=== PATIENT | female | born 1960 | race Caucasian/White ===

== ENCOUNTER 2024-07-08 11:01 | Emergency (ER) | payer MEDICARE, SELFPAY ==
[2024-07-08] VITALS (24 sets, daily range): BP systolic 92–130; BP diastolic 33–66
--- NOTE | 2024-07-08 12:36 | ED.GENMED ---
History of Present Illness
General
Chief Complaint: Abnormal Lab Value
Source: patient and ambulance crew
Exam Limitations: none
Time Seen by Provider: 07/08/24 12:10
Nursing documentation reviewed up to this point in time: agreed with
History of Present Illness
History of Present Illness:
63-year-old female presents emergency department due to not receiving dialysis on Wednesday. Elevator at the facility [facility] is broken and they could not get her down to the basement to perform dialysis. EMS was called today because she did
not get dialysis yesterday. They transported her down the stairs by stair chair. Dialysis not available today, so they brought her to the emergency department.
Past History
Past History
ED Past Medical History: Arrthythmia, CAD, CVA, Renal failure and Other (Hemiplegia)
ED Past Surgical History: Appendectomy, Cholecystectomy and Other (ERCP)
Social History
Tobacco: Non-smoker
Alcohol: None
Drug: None
Living: senior living
Review of Systems
Review of Systems
Allergies reviewed?: Yes
All Other Systems: Not applicable
Constitutional: Reports no symptoms
EENT: Reports no symptoms
Respiratory: Reports no symptoms
Cardiac: Reports no symptoms
ABD/GI: Reports no symptoms
: Reports no symptoms
Musculoskeletal: Reports no symptoms
Skin: Reports no symptoms
Neurological: Reports no symptoms
Endocrine: Reports no symptoms
Hematologic/Lymphatic: Reports no symptoms
Psychiatric: Reports no symptoms
Phy Exam
Physical Exam
Physical Exam:
Physical Exam
General: no apparent distress, not acutely ill
Neck: supple. no meningeal signs. normal posterior pharynx
Heart: s1/s2 regular rate and rhythm, no murmur. equal radial
pulses.
HEENT: Pupils equal round reactive to light, EOMI
Lungs: no acute respiratory distress. clear bilaterally
Abdomen: normal bowel sounds. not tender. no CVAT, abdominal wound right side abdomen, dressing intact
Neuro: alert and oriented. no focal neurological deficits cranial nerves II through XII intact
Skin: no rash, left buttocks wound dressing intact
Psychiatric: well kept. interactive and cooperative
Extremities: no edema. no calf tenderness. negative homans. good distal pulses, bilateral BKA, Dialysis catheter
Course
Orders/Labs/Results
Orders:
Orders
07/08/24 12:27
IV Insert/Care/Rem.- Treatment PRN
07/08/24 13:56
Consult Nephrology [NEPHROLOGY CONSULT] Urgent
Consulting Provider: Chhaya Lorenzo
Was physician already notified: Yes
Reason for consult: missed dialysis yesterday
07/08/24 14:09
Comprehensive Metabolic Panel Urgent
07/08/24 16:02
Albumin Human 25% 50 ml [Flexbumin 25% For Hemodialysis] 12.5 grams IV HD-Q1HPRN PRN
Mannitol 25% 12.5 grams IV HD-Q1HPRN PRN
Midodrine [ProAmatine] 2.5 mg PO HD-ONCE ONE
Hemodialysis treatment As Directed
Treatment date:: 07/08/24
Treatment type: Hemodialysis
Ultrafiltration (kg): 1-1.5
Treatment time (duration): 3 hours 30 minutes
Use dialysis access:: Tunneled Cath
Dialyzer:: Optiflux 160
Blood flow rate minimum: 350
Blood flow rate maximum: 400
Dialysis flow rate: 600 mL/min
Dialysate temperature: 37 degrees Celsius
Sodium (Na): 140
Potassium (K): 2
Calcium (Ca): 2.5
Bicarbonate (HCO3): 35
Abnormal Lab Results
07/08/24
14:09
BUN 51 H mg/dl
(7-17)
Creatinine 3.8 H mg/dL
(0.6-1.0)
Glucose 100 H mg/dl
(70-99)
Calcium 8.1 L mg/dl
(8.4-10.2)
Albumin 2.8 L g/dl
(3.5-5.0)
07/08/24 14:09
Vital Signs
Initial and Last Documented VS:
Initial Vital Signs
BP Pulse Ox
109/51 99
07/08/24 11:04 07/08/24 11:04
Last Documented Vital Signs
Temp Pulse Resp BP Pulse Ox
98.1 F 63 18 130/65 98
07/08/24 11:06 07/08/24 15:53 07/08/24 15:53 07/08/24 17:00 07/08/24 17:00
MDM/Problems Addressed
Differential Diagnosis Includes:
Electrolyte abnormality
MDM/Problems Addressed:
63-year-old female with renal failure, missing dialysis. She will get dialysis and be discharged.
Chronic conditions affecting care: Kidney disease
Acute Exacerbation and/or Progression of Chronic Illness: Kidney disease
*Pulse Oximetry
Patient hypoxic: no
*Critical Care Note
Total Time (30-74mins, 75-104mins- exclusive of procedures): Not Applicable
Patient Management
Social determinants of health affecting care: Living situation and Strong social support
Discussion with other providers: Inside Sales Consultant (Nephrology)
Escalation/DeEscalation of care consider admission/obs:
Admit not indicated
ED Attending Note
-
Portions of this chart may have been created with voice recognition software.� Occasional wrong word or��sound alike� substitutions may have occurred due to the inherent limitations of voice recognition software.
Discharge Plan
Departure
Patient with high blood pressure during this ER visit?: Yes
Condition: Good
Discharge Problem:
Renal failure
Instructions: End-stage kidney disease (kidney failure), BLOOD PRESSURE
Prescriptions:
No Action
atorvastatin [Lipitor] 80 mg Tablet
80 mg PO QPM
sennosides [senna] 8.6 mg Tablet
17.2 mg PO BID
acetaminophen [Tylenol] 325 mg Tablet
650 mg PO Q4HPRN PRN (Reason: MILD PAIN)
doxycycline hyclate 100 mg Capsule
100 mg PO BID
Rx Instructions:
TAKE UNTIL 07/08/24
polyethylene glycol 3350 [Miralax] 17 gram Powder In Packet
17 g PO DAILY
amiodarone 200 mg Tablet
200 mg PO DAILY
ondansetron HCl [Zofran] 4 mg Tablet
4 mg PO Q8HPRN PRN (Reason: NAUSEA)
loperamide 2 mg Tablet
2 mg PO DAILYPRN PRN (Reason: DIARRHEA)
clopidogrel [Plavix] 75 mg Tablet
75 mg PO DAILY
aspirin 81 mg Tablet,Delayed Release (Dr/Ec)
81 mg PO DAILY
pantoprazole [Protonix] 40 mg Tablet,Delayed Release (Dr/Ec)
40 mg PO DAILY
nystatin 100,000 unit/gram Cream
1 applic TOPICAL DAILY
docusate sodium [Colace] 100 mg Capsule
100 mg PO BID
gabapentin 300 mg Capsule
300 mg PO TID
simethicone [Gas-X Extra Strength] 125 mg Tablet,Chewable
125 mg PO Q6HPRN PRN (Reason: GAS PAINS)
montelukast [Singulair] 10 mg Tablet
10 mg PO HS
metoprolol succinate [Toprol XL] 25 mg Tablet Extended Release 24 Hr
12.5 mg PO DAILY
albuterol sulfate [ProAir HFA] 90 mcg/actuation Hfa Aerosol Inhaler
2 puff INHALATION R Q6HPRN PRN (Reason: SOB)
lactulose 10 gram/15 mL Solution
20 g PO BIDPRN PRN (Reason: CONSTIPATION)
fentanyl 12 mcg/hr Patch 72 Hour
1 patch TRANSDERMAL Q72H
Preparation H Cream
1 applic AK HS
Preparation H Cream
1 applic [place] DAILYPRN PRN (Reason: AFTER EACH LOOSE STOOL)
insulin glargine [Lantus Solostar U-100 Insulin] 100 unit/mL (3 mL) Insulin Pen
7 unit SC HS
Referrals:
MARLEY HUSSEIN MD [Family Provider] - Call in 1-3 days for appt
Interventions
Interventions:
*Risk Screen - Suicide Last Done: 07/08/24 11:10
*General Assessment Last Done: 07/08/24 11:10
*Neglect/Abuse Screening Last Done: 07/08/24 11:10
*ED- Fall Risk Assessment Last Done: 07/08/24 11:10
*ED COVID-19 Vaccine History Last Done: 07/08/24 11:10
Discharge Date and Time
Print Language: ITALIAN
[2024-07-08 14:38] LABS: ALT (SGPT) < 10 U/L (0-35); AST (SGOT) 17 U/L (14-36); Albumin 2.8 g/dl (3.5-5.0); Alkaline Phosphatase 90 U/L (38-126); Blood Urea Nitrogen 51 mg/dl (7-17); Calcium 8.1 mg/dl (8.4-10.2); Carbon Dioxide 23 mmol/L (22-30); Chloride 107 mmol/L (98-107); Glucose 100 mg/dl (70-99); Potassium 4.6 mmol/L (3.5-5.1); Sodium 137 mmol/L (135-145); Total Bilirubin 0.5 mg/dl (0.2-1.3); Total Protein 6.6 g/dl (6.3-8.2); eGFR 12.91
[2024-07-08] MEDS: ProAmatine 2.5 MG PO (18:12)
--- NOTE | 2024-07-08 18:13 | W.CON.NEPH ---
Consultation
-
Date/Time Consultation Requested: 07/08/24 1300
Date/Time Consultation Performed: 07/08/24 1715
Requesting Provider: shonna Wood
Performing Provider: Chhaya Cormier
Reason for Consultation: ESRD
Medical History
-
Chief Complaint: missed HD
History of Present Illness:
this is 63-year-old female who has history of ESRD on dialysis since December 2023 initially was in [place] alf just moved to [facility] a month ago, right IJ tunneled dialysis catheter, long-standing diabetes probably caused
diabetic nephropathy and ESRD, CAD, history of CVA on aspirin who reportedly missed the dialysis yesterday since elevators were not working at her facility to go down to the dialysis unit. She was brought into the hospital today for missing
dialysis and cannot get dialysis until Wednesday. She reports no significant issues with the dialysis so far, she has not had any discussion of fistula creation. She only urinates small amount once in a while. Reports compliant with her as diet and
fluid restriction. She usually does not require much of a UF. She offers no fever, chest pain or shortness of breath are abdominal pain or diarrhea or constipation. She has history of bilateral BKA and she is Nonambulatory since then.
Past Medical History
Insulin-dependent diabetes mellitus
ESRD dialysis since December 2023
Right IJ tunneled dialysis catheter
history of bilateral BKA
Ambulatory dysfunction
Hyperlipidemia
GERD
Past Surgical History: Other ( right BKA in 2019, left BKA in 2021, appendectomy, cholecystectomy, ERCP)
Social History
Tobacco: Non-Smoker
Alcohol: None
Drug: None
Living: Group Home
Family History
Family History: Not Pertinent
Allergies / Home Medications
Allergy/AdvReac Type Severity Reaction Status Date / Time
Cephalosporins Allergy Severe Anaphylaxis Verified 07/08/24 11:15
Fish Containing Products Allergy Severe Shortness Verified 07/08/24 11:15
of Breath
Penicillins Allergy Severe Anaphylaxis Verified 07/08/24 11:15
shellfish derived Allergy Severe Shortness Verified 07/08/24 11:15
of Breath
strawberry Allergy Severe Itching Verified 07/08/24 11:15
bacitracin Allergy Intermediate Rash Verified 07/08/24 11:15
[From Neosporin
([id number])]
clindamycin Allergy Intermediate Shortness Verified 07/08/24 11:15
of Breath
latex Allergy Intermediate Shortness Verified 07/08/24 11:15
of Breath
morphine Allergy Intermediate Unknown Verified 07/08/24 11:15
neomycin Allergy Intermediate Rash Verified 07/08/24 11:15
[From Neosporin
([id number])]
polymyxin B Allergy Intermediate Rash Verified 07/08/24 11:15
[From Neosporin
([id number])]
silicone Allergy Intermediate Rash Verified 07/08/24 11:15
�Medication �Instructions �Recorded �Confirmed �Type
acetaminophen 325 mg tablet 650 mg PO Q4HPRN PRN MILD PAIN 07/08/24 07/08/24 History
(Tylenol)
albuterol sulfate 90 mcg/actuation 2 puff inhalation R Q6HPRN PRN SOB 07/08/24 07/08/24 History
aerosol inhaler
amiodarone 200 mg tablet 200 mg PO DAILY 07/08/24 07/08/24 History
aspirin 81 mg tablet,delayed 81 mg PO DAILY 07/08/24 07/08/24 History
release
atorvastatin 80 mg tablet (Lipitor) 80 mg PO QPM 07/08/24 07/08/24 History
clopidogrel 75 mg tablet (Plavix) 75 mg PO DAILY 07/08/24 07/08/24 History
docusate sodium 100 mg capsule 100 mg PO BID 07/08/24 07/08/24 History
(Colace)
doxycycline hyclate 100 mg capsule 100 mg PO BID 07/08/24 07/08/24 History
fentanyl 12 mcg/hr transdermal 1 patch transdermal Q72H 07/08/24 07/08/24 History
patch
gabapentin 300 mg capsule 300 mg PO TID 07/08/24 07/08/24 History
insulin glargine 100 unit/mL (3 7 unit SC HS 07/08/24 07/08/24 History
mL) subcutaneous pen (Lantus
Solostar U-100 Insulin)
lactulose 10 gram/15 mL oral 20 g PO BIDPRN PRN CONSTIPATION 07/08/24 07/08/24 History
solution
loperamide 2 mg tablet 2 mg PO DAILYPRN PRN DIARRHEA 07/08/24 07/08/24 History
metoprolol succinate 25 mg 12.5 mg PO DAILY 07/08/24 07/08/24 History
tablet,extended release 24 hr
(Toprol XL)
montelukast 10 mg tablet 10 mg PO HS 07/08/24 07/08/24 History
(Singulair)
nystatin 100,000 unit/gram topical 1 applic topical DAILY GROIN 07/08/24 07/08/24 History
cream
ondansetron HCl 4 mg tablet 4 mg PO Q8HPRN PRN NAUSEA 07/08/24 07/08/24 History
pantoprazole 40 mg tablet,delayed 40 mg PO DAILY 07/08/24 07/08/24 History
release (Protonix)
phenyleph-shark liver 1 applic [place] DAILYPRN PRN AFTER 07/08/24 07/08/24 History
[id number] rectal cream EACH LOOSE STOOL
phenyleph-shark liver 1 applic [place] HS 07/08/24 07/08/24 History
[id number] rectal cream
polyethylene glycol 3350 17 gram 17 g PO DAILY 07/08/24 07/08/24 History
oral powder packet (Miralax)
sennosides 8.6 mg tablet (senna) 17.2 mg PO BID 07/08/24 07/08/24 History
simethicone 125 mg chewable tablet 125 mg PO Q6HPRN PRN GAS PAINS 07/08/24 07/08/24 History
(Gas-X Extra Strength)
Review of Systems
-
All other systems: Negative unless noted
Physical Exam
Vital Signs
Vital Signs
Temp Pulse Resp BP Pulse Ox
98.1 F 63 18 109/53 99
07/08/24 11:06 07/08/24 15:53 07/08/24 15:53 07/08/24 17:45 07/08/24 18:00
Lab Results
Sodium 137 mmol/L (135-145) 07/08/24 14:09
Potassium 4.6 mmol/L (3.5-5.1) 07/08/24 14:09
Chloride 107 mmol/L (98-107) 07/08/24 14:09
Carbon Dioxide 23 mmol/L (22-30) 07/08/24 14:09
BUN 51 mg/dl (7-17) H 07/08/24 14:09
Creatinine 3.8 mg/dL (0.6-1.0) H 07/08/24 14:09
eGFR 12.91 07/08/24 14:09
Glucose 100 mg/dl (70-99) H 07/08/24 14:09
Calcium 8.1 mg/dl (8.4-10.2) L 07/08/24 14:09
Albumin 2.8 g/dl (3.5-5.0) L 07/08/24 14:09
Physical Exam
General: Awake, Alert, Oriented, AOx3, No Distress and Nontoxic
HEENT: EOMI, Anicteric, Conjunctivae Clear and Ear/Nose Intact
Respiratory: Clear, Normal Excursion and Nonlabored Respirations
Cardiac: S1/S2 and Regular Rate/Rhythm
Breast: Deferred by me
Abdomen: Soft, Nontender and Nondistended
Musculoskeletal: Other ( bilateral BKA)
Skin: No Rash
Neuro: Other ( clear speech, history of CVA, able to move her extremities)
Psych: Mood/afflect pleasant, Insight/judgement good and Appropriate
Data Reviewed
-
Labs: Labs Reviewed by me and Discussed with Patient
Assessment/Plan
-
IMP:
ESRD dialysis since December 2023
Right IJ tunneled dialysis catheter
Insulin-dependent diabetes mellitus
history of bilateral BKA
Ambulatory dysfunction
Hyperlipidemia
GERD
Plan:
a/w missing HD
will do HD today
vol status seem stable , gentle UF only
Bp stable
ok to d/c back to NH after HD
d/w pt
--- NOTE | 2024-07-08 18:22 | W.PN.NEPH.HD ---
Assessment
-
pt seen during HD
vitals stable
limited UF, seem euvolemic
CVC functions fine
ok to d/c back to NH
Progress Note - Hemodialysis
-
Date of Service: July 08, 2024
Duration: 30 minutes and 3 hours
Potassium Bath: 2
Calcium Bath: 2.5
Opti-Dialyzer: 160
Ultrafiltration: Other (0.5-1kg)
Blood Flow: 350
Dialysate Flow: 600
Heparin: no
EPO: no
[2024-07-09 01:10] VITALS: BP 106/55
[2024-07-09 02:32] VITALS: BP 105/33
[2024-07-09 03:29] VITALS: BP 105/34
== END 2024-07-09 03:20 ==
LOC: EMR 11:01
PROVIDERS: CONSULT PHYSICIAN Internal Medicine; EMERGENCY PHYSICIAN Emergency Medicine; FAMILY PHYSICIAN Student in an Organized Health Care Education/Training Program
DX: I12.0 Hypertensive chronic kidney disease with stage 5 chronic kidney disease or end stage renal disease (principal); N18.6 End stage renal disease; I25.10 Atherosclerotic heart disease of native coronary artery without angina pectoris; I69.359 Hemiplegia and hemiparesis following cerebral infarction affecting unspecified side; E11.40 Type 2 diabetes mellitus with diabetic neuropathy, unspecified; E11.22 Type 2 diabetes mellitus with diabetic chronic kidney disease; E11.51 Type 2 diabetes mellitus with diabetic peripheral angiopathy without gangrene; N18.5 Chronic kidney disease, stage 5; I48.91 Unspecified atrial fibrillation; J45.909 Unspecified asthma, uncomplicated; K21.9 Gastro-esophageal reflux disease without esophagitis; E78.5 Hyperlipidemia, unspecified; Z99.2 Dependence on renal dialysis; Z79.4 Long term (current) use of insulin; Z90.49 Acquired absence of other specified parts of digestive tract; Z89.511 Acquired absence of right leg below knee; Z89.512 Acquired absence of left leg below knee
CPT/HCPCS: 99285; G0257; 80053; P9047

== ENCOUNTER 2024-08-16 02:06 | Inpatient (IN) | payer OTHER, SELFPAY ==
[2024-08-15 20:41] VITALS: BMI 27.8
[2024-08-15 21:00] VITALS: BP 109/59
[2024-08-15 21:34] LABS: Hematocrit 37.2 % (37.0-47.0); Hemoglobin 11.4 g/dL (12.0-16.0); Mean Corp Hgb Conc. 30.6 g/dL (33.0-37.0); Mean Corpuscular Volume 85.5 fL (81.0-99.0); Nucleated Red Blood Cells % 0 %; Platelet Count 214 10^3/uL (130-400); Red Cell Dist. Width 15.6 % (11.5-14.5)
[2024-08-15 21:44] LABS: INR 1.12; PT 14.7 Sec (11.4-14.6)
[2024-08-15 21:49] LABS: ALT (SGPT) 15 U/L (0-35); AST (SGOT) 31 U/L (14-36); Albumin 2.4 g/dl (3.5-5.0); Alkaline Phosphatase 116 U/L (38-126); Blood Urea Nitrogen 51 mg/dl (7-17); Calcium 7.6 mg/dl (8.4-10.2); Carbon Dioxide 24 mmol/L (22-30); Chloride 104 mmol/L (98-107); Estimated Creatinine Clearance 21 ml/min; Glucose 155 mg/dl (70-99); Potassium 4.1 mmol/L (3.5-5.1); Sodium 133 mmol/L (135-145); Total Protein 6.3 g/dl (6.3-8.2); eGFR 18.51
[2024-08-15 22:00] VITALS: BP 124/65
[2024-08-15 23:00] VITALS: BP 113/70
[2024-08-16] VITALS (7 sets, daily range): BP systolic 108–139; BP diastolic 50–124; BMI 26.5
[2024-08-16] MEDS: ZOFRAN 4 MG IV (00:36)
[2024-08-16] MEDS: DILAUDID 0.5 MG IV (00:37)
--- NOTE | 2024-08-16 01:00 | ED.GENMED ---
History of Present Illness
General
Chief Complaint: Wound Check/Suture Removal
Source: patient
Exam Limitations: none
Time Seen by Provider: 08/15/24 22:11
Nursing documentation reviewed up to this point in time: agreed with
History of Present Illness
History of Present Illness:
Note:
CHIEF COMPLAINT(S)
Tissue infection on the hip.
HISTORY OF PRESENT ILLNESS
The patient is a 64-year-old female who presents with a tissue infection on the hip. She reports being followed by wound care services at [facility]. On examination, there is a noted yellowish discharge from the wound, and the patient reports no
associated fever. The current wound care regimen includes visits from [facility] wound care team. The patient mentioned seeing Dr. Prajapati for antibiotics. It was decided that further debridement than what can be provided at the shelter may
be necessary. An x-ray of the hip is planned, and the patient will be admitted for further care.
ADDITIONAL HISTORY OBTAINED FROM SOURCES OTHER THAN PATIENT
According to the wound care team from [facility], the patient has a tissue infection with yellowish discharge, which they have been monitoring.
SOCIAL DETERMINANTS AFFECTING HEALTH
The patient resides at [facility] and receives wound care services there.
PLAN
1. Admit the patient for further management of the hip infection.
2. Order laboratory tests.
3. Conduct an x-ray of the hip.
4. Arrange for further debridement if necessary.
5. Continue antibiotics as previously prescribed by Dr. Prajapati.
DIFFERENTIAL DIAGNOSIS
The Differential Diagnosis includes, in no particular order and is not limited to:
1. Necrotizing fasciitis-does not appear to be based on appearance
2. Osteomyelitis x-rays do not show clear signs of osteo
3. Cellulitis no obvious signs of cellulitis
4. Abscess formation minor possibility. No obvious abscess
5. Septic arthritis unlikely
6. Chronic wound infection
7. Hematoma unlikely
CARE-UPDATE
08/16/24 - 00:55
X-ray results indicate no signs of osteomyelitis. Plan to initiate antibiotics and proceed with admission due to outpatient wound cares request for further consensus.
Disposition:
SUMMARY OF ENCOUNTER
The patient is a 64-year-old female presenting with a non-healing stage 4 decubitus ulcer on her left hip. There is evidence of eschar but no clinical signs of cellulitis. She was evaluated due to the need for more extensive management than can be
provided at her current care facility, suggesting hospitalization and further wound debridement may be necessary. The patient will be admitted for the hospitalist services evaluation and potential wound care consultation.
DISPOSITION
Admit to hospitalist service for further management.
ASSESSMENT
Stage 4 decubitus ulcer on the left hip with eschar present, requiring hospital admission for further evaluation and potential wound care intervention.
PLAN
The patient will be admitted for further evaluation and management. A hospitalist service and possibly a wound care consultation will be part of her inpatient care team. Further debridement is planned as needed to aid in her recovery.
MEDICAL DECISION MAKING
- Complexity of Data Reviewed: Chronic conditions affecting care: Chronic wound infection, Soft tissue sarcoma, Hematoma
-Data:
Category 1
Clinical information like x-ray reports, infectious signs reviewed.
Category 2
Assessment requiring an independent historian(s): Clinical information obtained from wound care services indicating non-healing tissue infection and eschar presence.
- Risk:
Decisions were made to admit the patient due to her need for further evaluation, potential risk of complications from the wound, and to arrange dedicated wound care consultation and management interventions.
Past History
Past History
ED Past Medical History: Arrthythmia, CAD, CVA, Renal failure and Other (Hemiplegia)
ED Past Surgical History: Appendectomy, Cholecystectomy and Other (ERCP)
Social History
Tobacco: Non-smoker
Alcohol: None
Drug: None
Living: shelter
Phy Exam
Physical Exam
Physical Exam:
.
General Physical Exam
General Presentation: mild distress
General age: appears stated age
General Skin: warm and dry
General Habitus: debilitated and elderly
General Mental: alert
Pulmonary Exam
Pulmonary Exam: lungs clear and no respiratory distress
Gastrointestinal Exam
Gastrointestinal Exam: non tender, soft and non distended
Neurological Exam
Neurological Exam: alert and oriented x3
Musculoskeletal Exam
Musculoskeletal Exam: full ROM and neuro vasc intact
Skin Exam
Skin Exam: warm/dry, erythema and other (Decubiti on the left hip. Grade 4)
Sepsis
Sepsis Screening
Sepsis Assessment: Sepsis Ruled Out
Sepsis Screen
Sepsis Screen: Sepsis Ruled Out
Date: 08/16/24
Time: 02:00
Course
Orders/Labs/Results
Orders:
Orders
08/15/24 21:21
Complete Blood Count/With Diff Urgent
Comprehensive Metabolic Panel Urgent
Lactic Acid Q4H
Comment: ON ICE, CANCEL 2ND ORDER IF FIRST LACTIC ACID LEVEL <2
Prothrombin Time Urgent
Blood Culture Q20M
JAMIE Source: Blood/Venous
Specimen Description:
Comment: Urgent from separate sites. If patient screens positive for possible sepsis
08/15/24 23:06
Blood Culture Q20M
JAMIE Source: Blood/Venous
Specimen Description:
Comment: Urgent from separate sites. If patient screens positive for possible sepsis
08/16/24 00:01
CR Hip - LT w/wo Pel 2-3 Vw* Urgent
Reason For Exam: wound, nonhealing
Include a pelvis x-ray?: Yes
08/16/24 00:16
Ondansetron Injectable [Zofran] 4 mg IV NOW STA
08/16/24 00:24
HYDROmorphone [Dilaudid] 0.5 mg IV NOW STA
08/16/24 01:27
Admit/Transfer Patient As Directed
Co-Sign Provider:
Level of Care: Inpatient admission
Assign to:: Medical/Surgical
Physician / Group: Yehuda
Diagnosis: Left Hip Wound
Reason for Hospitalization: Left Hip Wound
Expected length of stay greater than two midnights?: Yes
ELOS- Estimated Length of Stay in days: 3
I certify the patient meets the requirements for IP care: Yes
PRN Pain Medication Management As Directed
May give lesser potent ordered pain med per pt: Yes
preference::
Protocol:: Medication orders for pain may be administered in a
manner that supports deferring to patient preference
when the pt is:
- Requesting an ordered lesser potent pain medication.
Least to most potent pain medications are defined
as: acetaminophen < NSAID < tramadol < opioids
(morphine, oxycodone, hydromorphone).
- Requesting a lesser dose of the same medication IF
ORDERED.
- Requesting a less intrusive route of administration
if both routes are prescribed by the provider (PO <
IV).
08/16/24 01:29
Code Status As Directed
Resuscitation Status: Full Code
Abnormal Lab Results
08/15/24
21:21
Hgb 11.4 L g/dL
(12.0-16.0)
MCH 26.2 L pg
(27.0-31.0)
MCHC 30.6 L g/dL
(33.0-37.0)
RDW 15.6 H %
(11.5-14.5)
MPV 10.9 H fL
(7.4-10.4)
Absolute Neuts (auto) 7.0 H 10^3/uL
(1.4-6.5)
Absolute Lymphs (auto) 1.1 L 10^3/uL
(1.2-3.4)
Neutrophils % 80.0 H %
(42.2-75.2)
Lymphocytes % 12.1 L %
(20.5-51.1)
PT 14.7 H Sec
(11.4-14.6)
Sodium 133 L mmol/L
(135-145)
BUN 51 H mg/dl
(7-17)
Creatinine 2.8 H mg/dL
(0.6-1.0)
Glucose 155 H mg/dl
(70-99)
Calcium 7.6 L mg/dl
(8.4-10.2)
Albumin 2.4 L g/dl
(3.5-5.0)
08/15/24 21:21
08/15/24 21:21
Vital Signs
Initial and Last Documented VS:
Initial Vital Signs
Pulse Resp Pulse Ox
68 15 99
08/15/24 20:43 08/15/24 20:43 08/15/24 20:43
Last Documented Vital Signs
Temp Pulse Resp BP Pulse Ox
98.3 F 93 25 109/69 99
08/15/24 20:46 08/16/24 01:15 08/16/24 01:15 08/16/24 01:00 08/16/24 01:15
*Pulse Oximetry
SaO2: 100
Oxygen Mode of Delivery: Room air
Patient hypoxic: no
*Critical Care Note
Total Time (30-74mins, 75-104mins- exclusive of procedures): Not Applicable
ED Attending Note
-
Portions of this chart may have been created with voice recognition software.� Occasional wrong word or��sound alike� substitutions may have occurred due to the inherent limitations of voice recognition software.
Discharge Plan
Departure
Patient Disposition: Admit
Date of Disposition: 08/16/24
Time of Disposition: 01:02
Admit to: Med/Surg
Presentation/result/management discussed w/ accepting MD/DO: Hospitalist
Condition: Fair
Discharge Problem:
Decubitus skin ulcer
Prescriptions:
No Action
atorvastatin [Lipitor] 80 mg Tablet
80 mg PO QPM
sennosides [senna] 8.6 mg Tablet
17.2 mg PO BID
acetaminophen [Tylenol] 325 mg Tablet
650 mg PO Q4HPRN PRN (Reason: MILD PAIN)
doxycycline hyclate 100 mg Capsule
100 mg PO BID
Rx Instructions:
TAKE UNTIL 07/08/24
polyethylene glycol 3350 [Miralax] 17 gram Powder In Packet
17 g PO DAILY
amiodarone 200 mg Tablet
200 mg PO DAILY
ondansetron HCl [Zofran] 4 mg Tablet
4 mg PO Q8HPRN PRN (Reason: NAUSEA)
loperamide 2 mg Tablet
2 mg PO DAILYPRN PRN (Reason: DIARRHEA)
clopidogrel [Plavix] 75 mg Tablet
75 mg PO DAILY
aspirin 81 mg Tablet,Delayed Release (Dr/Ec)
81 mg PO DAILY
pantoprazole [Protonix] 40 mg Tablet,Delayed Release (Dr/Ec)
40 mg PO DAILY
nystatin 100,000 unit/gram Cream
1 applic TOPICAL DAILY
docusate sodium [Colace] 100 mg Capsule
100 mg PO BID
gabapentin 300 mg Capsule
300 mg PO TID
simethicone [Gas-X Extra Strength] 125 mg Tablet,Chewable
125 mg PO Q6HPRN PRN (Reason: GAS PAINS)
montelukast [Singulair] 10 mg Tablet
10 mg PO HS
metoprolol succinate [Toprol XL] 25 mg Tablet Extended Release 24 Hr
12.5 mg PO DAILY
albuterol sulfate [ProAir HFA] 90 mcg/actuation Hfa Aerosol Inhaler
2 puff INHALATION R Q6HPRN PRN (Reason: SOB)
lactulose 10 gram/15 mL Solution
20 g PO BIDPRN PRN (Reason: CONSTIPATION)
fentanyl 12 mcg/hr Patch 72 Hour
1 patch TRANSDERMAL Q72H
Preparation H Cream
1 applic UT HS
Preparation H Cream
1 applic UT DAILYPRN PRN (Reason: AFTER EACH LOOSE STOOL)
insulin glargine [Lantus Solostar U-100 Insulin] 100 unit/mL (3 mL) Insulin Pen
7 unit SC HS
capsaicin [Arthritis Pain Relief(capsaic)] 0.075 % Cream
1 applic TOPICAL BID
Rx Instructions:
Apply to bilateral hips / thighs twice daily.
tramadol 50 mg Tablet
50 mg PO Q8H PRN (Reason: Pain)
diclofenac sodium [Voltaren] 1 % Gel
2 g TOPICAL BID
Rx Instructions:
Apply to R BKA BID
Referrals:
Camacho Al MD [Family Provider]
Interventions
Interventions:
*Risk Screen - Suicide Last Done: 08/15/24 20:51
*General Assessment Last Done: 08/15/24 20:49
*Neglect/Abuse Screening Last Done: 08/15/24 20:51
*ED- Fall Risk Assessment Last Done: 08/15/24 20:49
*ED COVID-19 Vaccine History Last Done: 08/15/24 20:49
ED-Skin Assessment Last Done: 08/16/24 01:26
Discharge Date and Time
Print Language: CONGOLESE
--- NOTE | 2024-08-16 02:31 | HPS.HSE ---
Family Physician
-
Family Physician: Camacho Al
Chief Complaint
-
L Hip Wound
History of Present Illness
Patient is a 64y F with PMH significant for ESRD on HD, ASCVD, hypertension, DM and chronic wounds who presents to ED for eval of L hip wound / drainage. Patient states that she has had wound on her L hip for approximately 3 months. She has
been receiving local wound care at the nursing facility including occasional bedside debridement. Today patient was started on doxycycline for yellow drainage from the wound. [facility] staff sent her to the ED for wound care evaluation and possibly more
extensive debridement of the wound.
Patient complains of intermittent nausea - though she also complains of dizziness with changes in head position which seems to correlate with / precede the nausea.
No fevers or chills. Patient complains of chronic, intermittent diarrhea. Reports history of IBS. No new / acute change in these symptoms.
No other acute complaints.
Medical History
Past Medical History
Past Medical History: Reports Other
Additional Past Medical History:
ASCVD (CVA x 5, CAD, PAD)
ESRD on HD (MWF)
Hypertension
DM-II
GERD
Obesity
Uterine Cancer / Vulvar Cancer s/p Surgery, Chemo, XRT
Asthma
? Clotting Disorder
Past Surgical History: Reports Other
Additional Past Surgical History:
Hysterectomy / Vulvectomy
Right IJ Tunneled HD Catheter (last changed in June 2024)
ERCP x 2
Cholecystectomy
Bilateral BKA
Appendectomy
PTCA with Stent x 2
Social History
Tobacco: Non-smoker
Alcohol: None
Drug: None
Living: [facility]
Family History
Family History: Other (Sisters (x2): Clotting disorder Father: CAD Mother: COPD)
Allergies / Home Medications
Allergies reflects when Allergies were last updated in [employer].
Home Medications with original date entered in [employer]
Allergy/Medication List:
Allergies
Allergy/AdvReac Type Severity Reaction Status Date / Time
Cephalosporins Allergy Severe Anaphylaxis Verified 07/08/24 11:15
Fish Containing Products Allergy Severe Shortness Verified 07/08/24 11:15
of Breath
Penicillins Allergy Severe Anaphylaxis Verified 07/08/24 11:15
shellfish derived Allergy Severe Shortness Verified 07/08/24 11:15
of Breath
strawberry Allergy Severe Itching Verified 07/08/24 11:15
bacitracin (From Neosporin Allergy Intermediate Rash Verified 07/08/24 11:15
([id number]))
clindamycin Allergy Intermediate Shortness Verified 07/08/24 11:15
of Breath
latex Allergy Intermediate Shortness Verified 07/08/24 11:15
of Breath
morphine Allergy Intermediate Unknown Verified 07/08/24 11:15
neomycin (From Neosporin Allergy Intermediate Rash Verified 07/08/24 11:15
([id number]))
polymyxin B (From Neosporin Allergy Intermediate Rash Verified 07/08/24 11:15
([id number]))
silicone Allergy Intermediate Rash Verified 07/08/24 11:15
Home Medications
acetaminophen 325 mg tablet (Tylenol) 650 mg PO Q4HPRN PRN MILD PAIN 07/08/24
albuterol sulfate 90 mcg/actuation aerosol inhaler 2 puff inhalation R Q6HPRN PRN SOB 07/08/24
amiodarone 200 mg tablet 200 mg PO DAILY 07/08/24
aspirin 81 mg tablet,delayed release 81 mg PO DAILY 07/08/24
atorvastatin 80 mg tablet (Lipitor) 80 mg PO QPM 07/08/24
clopidogrel 75 mg tablet (Plavix) 75 mg PO DAILY 07/08/24
docusate sodium 100 mg capsule (Colace) 100 mg PO BID 07/08/24
doxycycline hyclate 100 mg capsule 100 mg PO BID 07/08/24
fentanyl 12 mcg/hr transdermal patch 1 patch transdermal Q72H 07/08/24
gabapentin 300 mg capsule 300 mg PO TID 07/08/24
insulin glargine 100 unit/mL (3 mL) subcutaneous pen (Lantus Solostar U-100 Insulin) 7 unit SC HS 07/08/24
lactulose 10 gram/15 mL oral solution 20 g PO BIDPRN PRN CONSTIPATION 07/08/24
loperamide 2 mg tablet 2 mg PO DAILYPRN PRN DIARRHEA 07/08/24
metoprolol succinate 25 mg tablet,extended release 24 hr (Toprol XL) 12.5 mg PO DAILY 07/08/24
montelukast 10 mg tablet (Singulair) 10 mg PO HS 07/08/24
nystatin 100,000 unit/gram topical cream 1 applic topical DAILY GROIN 07/08/24
ondansetron HCl 4 mg tablet 4 mg PO Q8HPRN PRN NAUSEA 07/08/24
pantoprazole 40 mg tablet,delayed release (Protonix) 40 mg PO DAILY 07/08/24
phenyleph-shark liver [id number] rectal cream 1 applic CA DAILYPRN PRN AFTER EACH LOOSE STOOL 07/08/24
phenyleph-shark liver [id number] rectal cream 1 applic CA HS 07/08/24
polyethylene glycol 3350 17 gram oral powder packet (Miralax) 17 g PO DAILY 07/08/24
sennosides 8.6 mg tablet (senna) 17.2 mg PO BID 07/08/24
simethicone 125 mg chewable tablet (Gas-X Extra Strength) 125 mg PO Q6HPRN PRN GAS PAINS 07/08/24
capsaicin 0.075 % topical cream (Arthritis Pain Relief (capsaicin)) 1 applic topical BID 08/16/24
diclofenac sodium 1 % topical gel 2 g topical BID 08/16/24
tramadol 50 mg tablet 50 mg PO Q8H PRN Pain 08/16/24
Review of Systems
-
History Source: Patient
A 12 point ROS was completed and negative except as noted: Yes
Constitutional: Denies Fever, Fatigue or Chills
EENT: Denies Sore Throat
Respiratory: Denies Cough or Trouble Breathing
Cardiac: Denies Chest Pain or Palpitations
Abdomen/GI: Reports Nausea, Vomiting and Diarrhea; Denies Abdominal Pain, Constipated, Bloody Stools or Black Stools
: Reports Other (Minimal urine production.)
Skin: Reports Other (L hip wound / L buttock wound.)
Neurological: Reports Dizzy; Denies Headache
Psych: Denies Depression or Anxiety
Physical Exam
Vital Signs
Vital Signs
Temp Pulse Resp BP Pulse Ox
98.3 F 68 18 114/69 96
08/15/24 20:46 08/16/24 02:15 08/16/24 01:30 08/16/24 02:00 08/16/24 02:15
Physical Exam
General: Other (64y F in no acute distress.)
HEENT: Moist mucous membranes, PERRLA and Other (Thick neck.)
Respiratory: Clear; No Wheezes, Rales or Rhonchi
Cardiac: S1/S2 and Regular Rhythm; No Murmur
GI: Non Tender, Non Distended, Normal Bowel Sounds and Other (Obese)
Musculoskeletal: No Clubbing, No Cyanosis and Other (Bilateral BKA)
Skin: Other (L hip and L buttock wound with occlusive dressings in place (just changed in the ED). Surrounding skin with minimal erythema - no induration, increased warmth, etc.)
Neuro: AO x 3
Hematologic/Lymphatic: Other (R IJ Tunneled HD cath in place.)
Laboratory Results
-
08/15/24 21:21
08/15/24 21:21
Laboratory Results
PT 14.7 Sec (11.4-14.6) H 08/15/24 21:21
INR 1.12 08/15/24 21:21
Lactic Acid Cancelled 08/16/24 01:30
Total Bilirubin 0.3 mg/dl (0.2-1.3) 08/15/24 21:21
AST 31 U/L (14-36) 08/15/24 21:21
ALT 15 U/L (0-35) 08/15/24 21:21
Alkaline Phosphatase 116 U/L (38-126) 08/15/24 21:21
Impression/Plan
-
A/P: Patient is a 64y F with PMH significant for ASCVD, ESRD on HD, HTN and DM-II who presents to ED from local [facility] for evaluation of L hip wound.
Left Hip Wound
- Admit for further evaluation and treatment.
- Wound with described yellow drainage. Surrounding skin not significantly inflamed, etc.
- Continue current doxycycline for now.
- Wound Care / Surgery evaluation - ? additional debridement.
- Monitor temp curve, follow for any new symptoms / complaints.
ASCVD
- Stable. CAD with prior stents. Multiple previous strokes.
- No new symptoms.
- Hold Plavix acutely pending any surgery / debridement.
- Continue other outpatient med regimen including ASA, etc.
Paroxysmal Atrial Fibrillation
- Listed on MI record and patient on amiodarone per APR.
- Not on any OAC - despite reported A-Fib and separate 'clotting disorder'.
- Continue current CV medications.
- ? consider addition of OAC to current regimen.
ESRD on HD
- Stable. Receives HD .
- No gross evidence of volume overload on exam.
- Nephrology evaluation for HD needs during acute stay.
Benign Hypertension
- Stable. Continue current medications.
DM-II
- Continue basal : bolus insulin regimen.
- Follow glucose and cover with SSI as needed.
- Update A1C.
Asthma
- Stable. No active wheezing, dyspnea, etc.
- Continue inhaled medication regimen.
DVT Prophylaxis: Subcut heparin. ? 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
Code Status: Full
[2024-08-16 07:29] LABS: Glucose - Point of Care 84 mg/dl (70-99)
[2024-08-16 08:02] LABS: Hematocrit 35.1 % (37.0-47.0); Hemoglobin 10.8 g/dL (12.0-16.0); Mean Corp Hgb Conc. 30.8 g/dL (33.0-37.0); Mean Corpuscular Volume 86.2 fL (81.0-99.0); Platelet Count 205 10^3/uL (130-400); Red Cell Dist. Width 15.7 % (11.5-14.5)
[2024-08-16] MEDS: ASPIR LOW (ENTERIC COATED) 81 MG PO (08:07)
[2024-08-16] MEDS: TOPROL XL 12.5 MG PO (08:07)
[2024-08-16] MEDS: NEURONTIN 300 MG PO ×2 (08:07→20:27)
[2024-08-16] MEDS: VIBRAMYCIN 100 MG PO ×2 (08:07→20:27)
[2024-08-16] MEDS: PACERONE 200 MG PO (08:08)
[2024-08-16] MEDS: HEPARIN 5000 UNITS SC ×2 (08:08→20:27)
[2024-08-16] MEDS: MYCOSTATIN CREAM 1 APPLIC TOPICAL (08:09)
--- NOTE | 2024-08-16 08:20 | CON.GS ---
Addendum entered and electronically signed by Hilton Abbasi MD 08/16/24 11:56:
I saw and examined the patient.
The resident's note was reviewed and I agree with the note.
Comment: 64F s/p b/l BKA with 3 month hx of left hip pressure wounds, one with necrosis and purulence prompting admission. Exam with necrosis and purulence without erythema or calor or odor. Has sensation to the area, c/o pain there. On DAPT and
ESRD/HD. Ate breakfast this am, precluding OR today. AFVSS, no leukocytosis. Will attempt bedside I&D today.
Original Note:
Consultation
-
Date/Time Consultation Requested: 08/16/24, 2am
Date/Time Consultation Performed: 08/16/24, 8am
Requesting Provider: Tawanda Blackman
Performing Provider: Hilton Abbasi
Reason for Consultation: eval decubitus ulcer for debridement
Medical History
-
Chief Complaint: decubitus ulcer w new purulent drainage
History of Present Illness:
Elizabeth Abdalla is a 64yo F who presented to the ED & was admitted on 08/16 for evaluation & management of L hip decubitus ulcer with new purulent drainage. General surgery consulted to eval wound for potential debridement. Hx notable for ESRD on HD,
ASCVD, HTN, T2DM, bilateral BKA, and chronic wounds.
Pt resides at [facility] and is seen by their wound care team, who have been providing wound care with occasional bedside debridement for her L hip non-healing decubitus ulcer. She has had this wound for approx 3 months. Wound care team noted
new yellow/purulent drainage from the wound on 08/15 and sent her to the ED for evaluation. At presentation, pt was afebrile and denies feeling feverish or chills. No new nausea (chronic intermittent nausea with lightheadedness). Pt is non-smoker. ED
noted visible eschar but no visible evidence of cellulitis. Wound was dressed in the ED and pt was started on doxycycline 100mg BID & PRN pain regimen and admitted to floor. Pelvic xray ordered in ED demonstrated no signs c/w osteomyelitis. Exam on
admission noted no erythema or warmth around wound site.
This am, pt somnolent but denies any fever/chills overnight. Denies any new pain (wound site has sensation).
Past Medical History
Past Medical History: CAD, Cancer (vulvar/uterine), HTN, IDDM and Renal Failure (HD)
Past Surgical History: Appendectomy, Cardiac (PTCA with stent x2), Cholecystectomy, Gynecological (hysterectomy & vulvectomy) and Other (bilateral BKA)
Social History
Tobacco: Non-Smoker
Living: Residential
Allergies / Home Medications
Allergy/AdvReac Type Severity Reaction Status Date / Time
Cephalosporins Allergy Severe Anaphylaxis Verified 07/08/24 11:15
Fish Containing Products Allergy Severe Shortness Verified 07/08/24 11:15
of Breath
Penicillins Allergy Severe Anaphylaxis Verified 07/08/24 11:15
shellfish derived Allergy Severe Shortness Verified 07/08/24 11:15
of Breath
strawberry Allergy Severe Itching Verified 07/08/24 11:15
bacitracin (From Neosporin Allergy Intermediate Rash Verified 07/08/24 11:15
([id number]))
clindamycin Allergy Intermediate Shortness Verified 07/08/24 11:15
of Breath
latex Allergy Intermediate Shortness Verified 07/08/24 11:15
of Breath
morphine Allergy Intermediate Unknown Verified 07/08/24 11:15
neomycin (From Neosporin Allergy Intermediate Rash Verified 07/08/24 11:15
([id number]))
polymyxin B (From Neosporin Allergy Intermediate Rash Verified 07/08/24 11:15
([id number]))
silicone Allergy Intermediate Rash Verified 07/08/24 11:15
�Medication �Instructions �Recorded �Confirmed �Type
acetaminophen 325 mg tablet 650 mg PO Q4HPRN PRN MILD PAIN 07/08/24 08/16/24 History
(Tylenol)
albuterol sulfate 90 mcg/actuation 2 puff inhalation R Q6HPRN PRN SOB 07/08/24 08/16/24 History
aerosol inhaler
amiodarone 200 mg tablet 200 mg PO DAILY 07/08/24 08/16/24 History
aspirin 81 mg tablet,delayed 81 mg PO DAILY 07/08/24 08/16/24 History
release
atorvastatin 80 mg tablet (Lipitor) 80 mg PO QPM 07/08/24 08/16/24 History
clopidogrel 75 mg tablet (Plavix) 75 mg PO DAILY 07/08/24 08/16/24 History
docusate sodium 100 mg capsule 100 mg PO BID 07/08/24 08/16/24 History
(Colace)
doxycycline hyclate 100 mg capsule 100 mg PO BID 07/08/24 08/16/24 History
fentanyl 12 mcg/hr transdermal 1 patch transdermal Q72H 07/08/24 08/16/24 History
patch
gabapentin 300 mg capsule 300 mg PO TID 07/08/24 08/16/24 History
insulin glargine 100 unit/mL (3 7 unit SC HS 07/08/24 08/16/24 History
mL) subcutaneous pen (Lantus
Solostar U-100 Insulin)
lactulose 10 gram/15 mL oral 20 g PO BIDPRN PRN CONSTIPATION 07/08/24 08/16/24 History
solution
loperamide 2 mg tablet 2 mg PO DAILYPRN PRN DIARRHEA 07/08/24 08/16/24 History
metoprolol succinate 25 mg 12.5 mg PO DAILY 07/08/24 08/16/24 History
tablet,extended release 24 hr
(Toprol XL)
montelukast 10 mg tablet 10 mg PO HS 07/08/24 08/16/24 History
(Singulair)
nystatin 100,000 unit/gram topical 1 applic topical DAILY GROIN 07/08/24 08/16/24 History
cream
ondansetron HCl 4 mg tablet 4 mg PO Q8HPRN PRN NAUSEA 07/08/24 08/16/24 History
pantoprazole 40 mg tablet,delayed 40 mg PO DAILY 07/08/24 08/16/24 History
release (Protonix)
phenyleph-shark liver 1 applic [place] DAILYPRN PRN AFTER 07/08/24 08/16/24 History
mzj-eatkae-bcc rectal cream EACH LOOSE STOOL
phenyleph-shark liver 1 applic WA HS 07/08/24 08/16/24 History
cvc-izicoz-gyt rectal cream
polyethylene glycol 3350 17 gram 17 g PO DAILY 07/08/24 08/16/24 History
oral powder packet (Miralax)
sennosides 8.6 mg tablet (senna) 17.2 mg PO BID 07/08/24 08/16/24 History
simethicone 125 mg chewable tablet 125 mg PO Q6HPRN PRN GAS PAINS 07/08/24 08/16/24 History
(Gas-X Extra Strength)
capsaicin 0.075 % topical cream 1 applic topical BID 08/16/24 08/16/24 History
(Arthritis Pain Relief (capsaicin))
diclofenac sodium 1 % topical gel 2 g topical BID 08/16/24 08/16/24 History
tramadol 50 mg tablet 50 mg PO Q8H PRN Pain 08/16/24 08/16/24 History
Review of Systems
-
Unable to obtain full review of systems at this time due to: Other (patient somnolent, difficult to rouse )
History Source: Patient
Constitutional: Other (denies fever/chills)
A 10 point review of systems was completed, and was negative except as per HPI.
Physical Exam
Vital Signs
Temp Pulse Resp BP Pulse Ox
98.4 F 62 19 108/57 97
08/16/24 03:44 08/16/24 08:08 08/16/24 03:44 08/16/24 08:08 08/16/24 03:44
08/15/24 08/16/24 08/17/24
06:59 06:59 06:59
Actual Weight 72.263 kg
Body Mass Index (BMI) 26.5
Lab Results
08/16/24 06:47
WBC 7.6 10^3/uL (4.8-10.8) 08/16/24 06:47
Hgb 10.8 g/dL (12.0-16.0) L 08/16/24 06:47
Hct 35.1 % (37.0-47.0) L 08/16/24 06:47
Plt Count 205 10^3/uL (130-400) 08/16/24 06:47
Abs Immat Gran (auto) 0.0 10^3/uL (0-0.05) 08/15/24 21:21
Neutrophils % 80.0 % (42.2-75.2) H 08/15/24 21:21
Physical Exam
General: Other (somnolent, lying in bed on R side (pressure offloaded from L hip) )
HEENT: Normocephalic and Atraumatic
Respiratory: Non Labored Respirations
Musculoskeletal: Other (bilateral BKA)
Skin: Other (clean wound dressing (applied 08/16 by ED) on two areas of L posterior hip; more superior wound with necrosis & purulence; more inferior wound with fibrinous debris but no necrosis or purulence; surrounding skin not hot; no surrounding
erythema; area around wounds non-tender to palpation)
Psych: Calm
Data Reviewed
-
Radiology: Image Personally Visualized and interpreted and Report Reviewed by me
Labs: Labs Reviewed by me
Critical Care Time (in minutes): 50
Total Time Spent with Patient (in minutes): 15
Assessment / Plan
-
Elizabeth Abdalla is a 64yo F with a hx of ESRD on HD, ASCVD, HTN, DM, bilateral BKA, and chronic wounds seen for management of L hip decubitus ulcer with eschar & new purulent drainage.
Assessment: Superior L hip wound c/w necrotic (unstageable) decubitus pressure ulcer. Inferior L hip wound c/w stage III pressure ulcer. XR reassuring re: osteomyelitis, although early changes often visible only on MRI. Lack of fever, leukocytosis,
cellulitis, & warmth also reassuring from infectious standpoint. Given necrosis and purulence, debridement indicated for superior L hip wound.
Plan:
- Bedside debridement of superior L hip wound today by surgical team
- Plan to send bx post-debridement for culture
- Continue empiric doxycycline 100mg BID, pending result of wound culture
- Continue fentanyl patch, gabapentin, & PRN pain meds
- Offload pressure from L hip w bed positioning, especially from superior wound area
- Maintain adequate nutritional status w PO diet, consider following prealbumin level if remaining inpt (goal >25)
- Dispo: to SNF, following recovery from bedside debridement & wound culture resulting
[2024-08-16 08:31] LABS: Blood Urea Nitrogen 57 mg/dl (7-17); Calcium 7.6 mg/dl (8.4-10.2); Carbon Dioxide 21 mmol/L (22-30); Chloride 105 mmol/L (98-107); Estimated Creatinine Clearance 17 ml/min; Glucose 71 mg/dl (70-99); Potassium 4.0 mmol/L (3.5-5.1); Sodium 135 mmol/L (135-145); eGFR 16.39
--- NOTE | 2024-08-16 09:08 | CM ---
CM following for discharge planning. 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 PCP is Dr. Camacho Al.
Recent hospitalization at [facility] 05/19-05/28/2024.
Plan: Pt to return at [facility] when medically stable.
[facility] Report: [phone]
[facility]
[2024-08-16 09:25] LABS: Glycohemoglobin (HgbA1c) 4.8 % (4.0-5.6)
[2024-08-16] MEDS: DURAGESIC 12 MCG/HR PATCH 1 PATCH TRANSDERM (09:36)
--- NOTE | 2024-08-16 09:40 | W.CON.NEPH ---
Consultation
-
Date/Time Consultation Requested: August 16, 2024 at 2:30 AM
Date/Time Consultation Performed: August 16, 2024 at 9:30 AM
Requesting Provider: Dr. Blackman
Performing Provider: Dr. Luciano
Reason for Consultation: End-stage renal disease
Medical History
-
Chief Complaint: ESRD
History of Present Illness:
64y F with PMH significant for ESRD on HD, ASCVD, hypertension, DM and chronic wounds who presents to ED for eval of L hip wound / drainage. Patient states that she has had wound on her L hip for approximately 3 months. She has been receiving
local wound care at the nursing facility including occasional bedside debridement. Today patient was started on doxycycline for yellow drainage from the wound. [facility] staff sent her to the ED for wound care evaluation and possibly more extensive
debridement of the wound.
She receives dialysis at [facility] Wednesday she has been on dialysis since December 2023 via [facility]
Renal consult for end-stage renal disease management
Past Medical History
Insulin-dependent diabetes mellitus
ESRD dialysis since December 2023
Right IJ tunneled dialysis catheter
history of bilateral BKA
Ambulatory dysfunction
Hyperlipidemia
GERD
Past Surgical History: Other ( right BKA in 2019, left BKA in 2021, appendectomy, cholecystectomy, ERCP)
Social History
Tobacco: Non-Smoker
Alcohol: None
Drug: None
Living: Skilled Nursing
Family History
Family History: Not Pertinent
Allergies / Home Medications
Allergy/AdvReac Type Severity Reaction Status Date / Time
Cephalosporins Allergy Severe Anaphylaxis Verified 07/08/24 11:15
Fish Containing Products Allergy Severe Shortness Verified 07/08/24 11:15
of Breath
Penicillins Allergy Severe Anaphylaxis Verified 07/08/24 11:15
shellfish derived Allergy Severe Shortness Verified 07/08/24 11:15
of Breath
strawberry Allergy Severe Itching Verified 07/08/24 11:15
bacitracin (From Neosporin Allergy Intermediate Rash Verified 07/08/24 11:15
([id number]))
clindamycin Allergy Intermediate Shortness Verified 07/08/24 11:15
of Breath
latex Allergy Intermediate Shortness Verified 07/08/24 11:15
of Breath
morphine Allergy Intermediate Unknown Verified 07/08/24 11:15
neomycin (From Neosporin Allergy Intermediate Rash Verified 07/08/24 11:15
([id number]))
polymyxin B (From Neosporin Allergy Intermediate Rash Verified 07/08/24 11:15
([id number]))
silicone Allergy Intermediate Rash Verified 07/08/24 11:15
�Medication �Instructions �Recorded �Confirmed �Type
acetaminophen 325 mg tablet 650 mg PO Q4HPRN PRN MILD PAIN 07/08/24 08/16/24 History
(Tylenol)
albuterol sulfate 90 mcg/actuation 2 puff inhalation R Q6HPRN PRN SOB 07/08/24 08/16/24 History
aerosol inhaler
amiodarone 200 mg tablet 200 mg PO DAILY 07/08/24 08/16/24 History
aspirin 81 mg tablet,delayed 81 mg PO DAILY 07/08/24 08/16/24 History
release
atorvastatin 80 mg tablet (Lipitor) 80 mg PO QPM 07/08/24 08/16/24 History
clopidogrel 75 mg tablet (Plavix) 75 mg PO DAILY 07/08/24 08/16/24 History
docusate sodium 100 mg capsule 100 mg PO BID 07/08/24 08/16/24 History
(Colace)
doxycycline hyclate 100 mg capsule 100 mg PO BID 07/08/24 08/16/24 History
fentanyl 12 mcg/hr transdermal 1 patch transdermal Q72H 07/08/24 08/16/24 History
patch
gabapentin 300 mg capsule 300 mg PO TID 07/08/24 08/16/24 History
insulin glargine 100 unit/mL (3 7 unit SC HS 07/08/24 08/16/24 History
mL) subcutaneous pen (Lantus
Solostar U-100 Insulin)
lactulose 10 gram/15 mL oral 20 g PO BIDPRN PRN CONSTIPATION 07/08/24 08/16/24 History
solution
loperamide 2 mg tablet 2 mg PO DAILYPRN PRN DIARRHEA 07/08/24 08/16/24 History
metoprolol succinate 25 mg 12.5 mg PO DAILY 07/08/24 08/16/24 History
tablet,extended release 24 hr
(Toprol XL)
montelukast 10 mg tablet 10 mg PO HS 07/08/24 08/16/24 History
(Singulair)
nystatin 100,000 unit/gram topical 1 applic topical DAILY GROIN 07/08/24 08/16/24 History
cream
ondansetron HCl 4 mg tablet 4 mg PO Q8HPRN PRN NAUSEA 07/08/24 08/16/24 History
pantoprazole 40 mg tablet,delayed 40 mg PO DAILY 07/08/24 08/16/24 History
release (Protonix)
phenyleph-shark liver 1 applic [place] DAILYPRN PRN AFTER 07/08/24 08/16/24 History
zyl-wsezgt-cvm rectal cream EACH LOOSE STOOL
phenyleph-shark liver 1 applic [place] HS 07/08/24 08/16/24 History
ikc-wffqbg-avy rectal cream
polyethylene glycol 3350 17 gram 17 g PO DAILY 07/08/24 08/16/24 History
oral powder packet (Miralax)
sennosides 8.6 mg tablet (senna) 17.2 mg PO BID 07/08/24 08/16/24 History
simethicone 125 mg chewable tablet 125 mg PO Q6HPRN PRN GAS PAINS 07/08/24 08/16/24 History
(Gas-X Extra Strength)
capsaicin 0.075 % topical cream 1 applic topical BID 08/16/24 08/16/24 History
(Arthritis Pain Relief (capsaicin))
diclofenac sodium 1 % topical gel 2 g topical BID 08/16/24 08/16/24 History
tramadol 50 mg tablet 50 mg PO Q8H PRN Pain 08/16/24 08/16/24 History
Review of Systems
-
No chest pain or shortness of breath mild nausea
All other systems: Negative unless noted
Physical Exam
Vital Signs
Vital Signs
Temp Pulse Resp BP Pulse Ox
97.9 F 62 18 108/57 98
08/16/24 07:10 08/16/24 08:08 08/16/24 07:10 08/16/24 08:08 08/16/24 07:10
Lab Results
WBC 7.6 10^3/uL (4.8-10.8) 08/16/24 06:47
RBC 4.07 10^6/uL (4.20-5.40) L 08/16/24 06:47
Hgb 10.8 g/dL (12.0-16.0) L 08/16/24 06:47
Hct 35.1 % (37.0-47.0) L 08/16/24 06:47
Plt Count 205 10^3/uL (130-400) 08/16/24 06:47
Sodium 135 mmol/L (135-145) 08/16/24 06:46
Potassium 4.0 mmol/L (3.5-5.1) 08/16/24 06:46
Chloride 105 mmol/L (98-107) 08/16/24 06:46
Carbon Dioxide 21 mmol/L (22-30) L 08/16/24 06:46
BUN 57 mg/dl (7-17) H 08/16/24 06:46
Creatinine 3.1 mg/dL (0.6-1.0) H 08/16/24 06:46
eGFR 16.39 08/16/24 06:46
Glucose 71 mg/dl (70-99) 08/16/24 06:46
Calcium 7.6 mg/dl (8.4-10.2) L 08/16/24 06:46
Albumin 2.4 g/dl (3.5-5.0) L 08/15/24 21:21
Physical Exam
General no acute distress
HEENT no cephalic atraumatic extraocular muscle intact no scleral icterus no JVD neck supple
lungs clear to auscultation bilateral
heart regular S1-S2 positive
abdomen soft nontender positive bowel sounds
extremities bilateral lower extremity amputations
Neurologically nonfocal alert and oriented x 3
Skin left hip wound dressing
Psych normal affect no bizarre behavior
Data Reviewed
-
Labs: Labs Reviewed by me, Discussed with Nurse and Discussed with Patient
Assessment/Plan
-
IMP:
ESRD dialysis since December 2023
Right IJ tunneled dialysis catheter
Left hip wound
Insulin-dependent diabetes mellitus
history of bilateral BKA
Ambulatory dysfunction
Hyperlipidemia
GERD
Plan:
Dialysis Wednesday
Dialysis order= please refer to orders for details
Epogen as indicated for hemoglobin goal between 10 and 11
Wound management
Antibiotic renally dosed
[2024-08-16] MEDS: REMOVE DURAGESIC PATCH 1 PATCH REMOVE (09:41)
[2024-08-16] MEDS: FLEXBUMIN 25% FOR HEMODIALYSIS 12.5 GRAMS IV ×2 (10:20→12:00)
[2024-08-16] MEDS: MANNITOL 25% 12.5 GRAMS IV ×2 (10:43→12:06)
--- NOTE | 2024-08-16 10:55 | WOUNDNOTE ---
WO RN note: Patient admitted with infected hip wound.
See H&P for complete history.
PMH:
Patient is a 64y F with PMH significant for ESRD on HD, ASCVD, hypertension, DM and chronic wounds who presents to ED for eval of L hip wound / drainage. Patient states that she has had wound on her L hip for approximately 3 months. She has
been receiving local wound care at the nursing facility including occasional bedside debridement.
Wound Location and type/assessment: Patient admitted with: L hip and L ischium with stage 4 PI, foul odor, base saunders mixed with christine slough, undermines and tunnels. Distal to L hip stage 3 vs deeper PI. Sacrum is intact, patient assists with
turning. R hip blanchable red, silicone foam to protect in use. L ear with dried up suspect stage 3 PI. R ear blanchable red. B/L BKA stumps intact.
Appetite: Fair, encouraged protein in diet.
Pressure redistribution devices in place: On [place] air bed with air overlay as per patient's request. Palm check done and adjusted air, repositioned onto R semi side lying position.
Plan: Saline moist gauze applied. Surgical consult pending. Recommend [facility] if not going to OR.
Will confirm orders with hospitalist and updated nurse.
Updated care plan and will follow as needed.
Note to case management of equipment requested for discharge:
Recommend follow up at wound care center upon discharge.
[2024-08-16 11:39] LABS: Glucose - Point of Care 98 mg/dl (70-99)
--- NOTE | 2024-08-16 13:08 | W.PN.NEPH.HD ---
Assessment
-
Seen on dialysis tolerated treatment ultrafiltration 500 required mannitol for low blood pressure. Catheter worked well
Progress Note - Hemodialysis
-
Date of Service: August 16, 2024
Duration: 30 minutes and 3 hours
Potassium Bath: 2
Calcium Bath: 2.5
Opti-Dialyzer: 160
Ultrafiltration: Other (0.5-1kg)
Blood Flow: 350
Dialysate Flow: 600
Heparin: no
EPO: no
[2024-08-16] MEDS: ATIVAN 1 MG IV (13:38)
[2024-08-16] MEDS: DILAUDID 1 MG IV (13:46)
--- NOTE | 2024-08-16 14:23 | W.PN.UPDATE ---
Update Note
Progress Note Update
Incision and drainage of left hip pressure wound, stage IV, infected, necrotic
Informed consent obtained
Anesthesia: 1mg dilaudid, 1mg ativan, 25cc 0.5% lidocaine with epi
Specimen: Aerobic/anaerobic cultures
Final wound dimensions: 4cm x 3cm x 1cm with 3.5cm tunnel at 7:00 position
Procedure:
Dressing and packing removed. Lidocaine infiltrated into surrounding soft tissues. #11 blade used to sharply debride skin, subcutaneous fat, circumferentially around the rim of the wound and muscle and fascia in the wound base. Tunneling identified
at 7:00 position probed to 3.5cm depth. This cavity was sharply debrided with the knife to excise necrotic subcutaneous fat, muscle and fascia. Scan purulence was expressed from this tunnel. All tissue debrided sharpy back to healthy tissue. Small
area of periosteum exposed in the wound base. Anaerobic and aerobic cultures obtained. The wound was irrigated with copious sterile saline. Hemostasis achieved with direct pressure. Tunnel and wound packed with saline moistened gauze, covered with
dry gauze and silicone dressing.
The patient tolerated the procedure well with no complications.
--- NOTE | 2024-08-16 15:05 | W.PN.HOSP.TC ---
Today's Communication/Plan
-
See plan
Assessment / Plan
Assessment / Plan
Impression
Patient is a 64y F with PMH significant for ASCVD, ESRD on HD, HTN and DM-II who presents to ED from local MD for evaluation of L hip wound.
Infected left hip wound
Other conditions
Bilateral BKA
ASCVD
Paroxysmal atrial fibrillation.
End-stage renal disease on hemodialysis per
Benign hypertension
Diabetes type 2.
Asthma without exacerbation
Plan
Infected left hip wound with necrotic eschar.
Presented with foul-smelling discharge, although hemodynamically stable, afebrile with normal white count and no evidence for systemic infection
X-ray with no evidence of osteomyelitis.
Status post bedside sharp debridement by general surgery.
Follow wound cultures
She has been initiated on doxycycline prior to admission. Noted with multiple antibiotic allergies
ASCVD
- Stable. CAD with prior stents. Multiple previous strokes.
- No new symptoms.
- Hold Plavix acutely pending any surgery / debridement.
- Continue other outpatient med regimen including ASA, etc.
Paroxysmal Atrial Fibrillation
- Listed on MD record and patient on amiodarone per APR.
- Not on any OAC - despite reported A-Fib and separate 'clotting disorder'.
- Continue current CV medications.
- ? consider addition of OAC to current regimen.
ESRD on HD
- Stable. Receives HD --.
- No gross evidence of volume overload on exam.
- Nephrology evaluation for HD needs during acute stay.
Benign Hypertension
- Stable. Continue current medications.
DM-II
- Continue basal : bolus insulin regimen.
- Follow glucose and cover with SSI as needed.
- Hemoglobin A1c 4.8
Asthma
- Stable. No active wheezing, dyspnea, etc.
- Continue inhaled medication regimen.
DVT Prophylaxis: Subcut heparin. ? 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
Anticipated Discharge: 24 - 48 hours
Subjective/Interval History
-
Date of Service: August 16, 2024
Objective Data
-
Labs:
Laboratory Results
08/16/24 08/16/24
06:46 06:47
WBC 7.6
Hgb 10.8 L
Hct 35.1 L
Plt Count 205
Sodium 135
Potassium 4.0
Chloride 105
Carbon Dioxide 21 L
BUN 57 H
Creatinine 3.1 H
Glucose 71
Calcium 7.6 L
Vital Signs:
Vital Signs
Temp Pulse Resp BP Pulse Ox
97.9 F 62 18 108/57 98
08/16/24 07:10 08/16/24 08:08 08/16/24 07:10 08/16/24 08:08 08/16/24 10:31
Physical Exam
-
General: Well Developed and No Apparent Distress
HEENT: Normocephalic, Atraumatic and Moist Mucous Membranes
Respiratory: Clear to Auscultation
Cardiac: Regular Rhythm and S1/S2; Negative Murmur, Rub or Gallop
GI: Soft, Nontender, Nondistended and Normal Bowel Sounds; Negative Organomegaly
Rectal: Deferred by Provider
Musculoskeletal: No Clubbing, No Cyanosis and No Edema
Skin: Negative Rash
Neuro: Nonfocal/Grossly Intact
[2024-08-16] MEDS: LIPITOR 80 MG PO (17:14)
[2024-08-16 17:18] LABS: Glucose - Point of Care 81 mg/dl (70-99)
--- NOTE | 2024-08-16 18:32 | PTCARENOTE ---
Addendum entered by Sarah Parra RN 08/16/24 19:50:
L hip and ischium dressings reinforced by this RN with fresh gauze sponges and foams x2 throughout shift for mod amount of serosanguineous drainage; wound care consult in place, to round in AM.
Original Note:
Bedside debridement of L hip pressure wound performed by surgery team this afternoon after HD session, wound cx ordered per surgeon and sent to lab by this RN. Stat doses of 2mg IV Ativan and 2mg IV Dilaudid ordered by surgeon for debridement,
stated to this RN to administer half of ordered doses prior to debridement, patient's pain managed during procedure and surgeon stated remaining doses of IV dilaudid and ativan not needed; MAR updated to reflect administration, remaining medication
wasted in Pyxis by this RN and Laurence MUNIZ. New Fentanyl patch placed on RACHAEL by this RN. Patient offloaded with pillows, air overlay in place, ringing appropriately.
[2024-08-16] MEDS: DESENEX/MITRAZOL/ZEASORB 1 APPLIC TOPICAL (20:28)
[2024-08-16 21:45] LABS: Glucose - Point of Care 117 mg/dl (70-99)
[2024-08-16] MEDS: TYLENOL 650 MG PO (21:48)
[2024-08-16] MEDS: SENOKOT 17.2 MG PO (21:51)
[2024-08-16] MEDS: SINGULAIR 10 MG PO (21:51)
[2024-08-16] MEDS: LANTUS 0.07 UNITS SC (21:52)
[2024-08-17] MEDS: ULTRAM 50 MG PO ×2 (05:50→13:58)
[2024-08-17 06:00] VITALS: BMI 26.4
[2024-08-17 07:10] VITALS: BP 132/75
[2024-08-17 07:19] LABS: Glucose - Point of Care 77 mg/dl (70-99)
--- NOTE | 2024-08-17 08:45 | W.PN.GS2 ---
Today's Communication / Plan
-
Plan:
- Wound care consulted, pending their recs & consider wound vac
- Await wound culture results
- Continue empiric doxycycline 100mg BID today, pending result of wound culture
- Continue fentanyl patch, gabapentin, & PRN pain meds (tramadol, tylenol)
- Start zofran PRN, watching for QT prolongation
- Offload pressure from L hip w bed positioning, especially from superior wound area
- Maintain adequate nutritional status w PO diet, consider following prealbumin level if remaining inpt (goal >25)
- Dispo: to SNF, following recovery from bedside debridement & wound culture resulting
Assessment / Plan
-
Elizabeth Abdalla is a 64yo F with a hx of ESRD on HD, ASCVD, HTN, DM, bilateral BKA, and chronic wounds seen for management of L hip decubitus ulcer with eschar & new purulent drainage, now s/p bedside sharp debridement of superior wound on L hip.
Assessment: Stage IV decubitus wound now s/p debridement with wet to dry packing in place. Awaiting recs from wound care re: wound vac and planning. Inferior L hip wound c/w stage III pressure ulcer with no intervention required at this point.
Prior XR reassuring re: osteomyelitis, although early changes often visible only on MRI. Ongoing lack of fever, leukocytosis, cellulitis, & warmth also reassuring from infectious standpoint. Wound cultures returned with moderate GNR, some GPC,
specific cultures pending.
Plan:
- Wound care consulted, pending their recs & consider wound vac
- Await wound culture results
- Continue empiric doxycycline 100mg BID today, pending result of wound culture
- Continue fentanyl patch, gabapentin, & PRN pain meds (tramadol, tylenol)
- Start zofran PRN, watching for QT prolongation
- Offload pressure from L hip w bed positioning, especially from superior wound area
- Maintain adequate nutritional status w PO diet, consider following prealbumin level if remaining inpt (goal >25)
- Dispo: to SNF, following recovery from bedside debridement & wound culture resulting
Time Spent
Total Time Spent with Patient (in minutes): 10
Subjective Data
-
Date of Service: August 17, 2024
Pt vomited this morning, feels nauseated with positional changes in bed. Requesting PRN zofran. Denies fever/chill overnight. States that debridement site a bit sore overnight, took PRN tramadol, pain 08/24 currently.
Objective Data
-
Intake and Output
08/16/24 08/17/24 08/18/24
06:59 06:59 06:59
Intake Total 960 / 960
Balance 960 / 960
Intake:
Oral fluids 960 / 960
Other:
How many times incontinent 1
SATURATED amount urine
Vital Signs
Temp Pulse Resp BP Pulse Ox
97.6 F 80 16 132/75 99
08/17/24 07:10 08/17/24 07:10 08/17/24 07:10 08/17/24 07:10 08/17/24 07:10
Lab Results
08/16/24 06:47
08/16/24 06:46
Calcium 7.6 mg/dl (8.4-10.2) L 08/16/24 06:46
Total Bilirubin 0.3 mg/dl (0.2-1.3) 08/15/24 21:21
AST 31 U/L (14-36) 08/15/24 21:21
ALT 15 U/L (0-35) 08/15/24 21:21
Alkaline Phosphatase 116 U/L (38-126) 08/15/24 21:21
Total Protein 6.3 g/dl (6.3-8.2) 08/15/24 21:21
Albumin 2.4 g/dl (3.5-5.0) L 08/15/24 21:21
Physical Exam
-
General: somnolent, lying in bed on R side
Cardiopulm: non-labored breathing
Skin/extremities: clean bandages on two L hip wounds without any drainage, surrounding erythema, or warmth; surrounding region nontender to palpation
Patient has a ferreira catheter: No
Patient has a central line: No
[2024-08-17] MEDS: PACERONE 200 MG PO (08:47)
[2024-08-17] MEDS: VIBRAMYCIN 100 MG PO (08:47)
[2024-08-17] MEDS: TOPROL XL 12.5 MG PO (08:47)
[2024-08-17] MEDS: NEURONTIN 300 MG PO ×2 (08:47→16:20)
[2024-08-17] MEDS: ASPIR LOW (ENTERIC COATED) 81 MG PO (08:47)
[2024-08-17] MEDS: HEPARIN 5000 UNITS SC (08:48)
[2024-08-17] MEDS: DESENEX/MITRAZOL/ZEASORB 1 APPLIC TOPICAL (08:49)
[2024-08-17] MEDS: MYCOSTATIN CREAM 1 APPLIC TOPICAL (08:49)
[2024-08-17] MEDS: SANTYL OINTMENT 1 APPLIC TOPICAL (10:01)
--- NOTE | 2024-08-17 10:29 | WOUNDNOTE ---
WOC RN NOTE: Met with patient to eval for wound vac for left hip wound. At time of assessment patient had been medicated for pain and rated pain 7/10 at left hip wound. She had just finished completing 50% of her breakfast and reported fair
appetite. Left hip wound s/p debridement yesterday and appears catch basin cleaner than previous pic, but base of wound covered with adherent slough and fibrin appearing tissue. Left hip wound was malodorous after cleaning. Due to pain and appearance of wound
base, recommend cleaning with Dakins and use of Santyl to left hip wound. TT Dr. Sears with assessment and confirmed order. Wound care provided to both hip and ischium wound as ordered.
This mortgage or loan underwriter had long discussion with patient regarding off-loading. At time of assessment right hip was blanchable and silicone border foam was maintained. Sacrum intact and silicone foam maintained. Patient reported feeling sore on right rip, as
she cannot tolerate laying on left side. A Z-foam cushion was placed to off-load right and pillow was used for off-loading of left hip. Patient stated comfort in this position. Static air overlay properly inflated. Explained to patient that she will
need frequent turning and repositioning even with the air overlay in place. Patient is concerned about developing right hip wound, as she developed left hip wound when off-loading to the left. She said she will notify staff right away if right hip
or sacrum are sore. Patient turns well in bed with assistance and is agreeable to position changes. Encouraged good po intake of meals and protein. Bilateral BKA stumps also intact. CRISTY Toribio and PCT Renny given update.
[2024-08-17 11:48] LABS: Glucose - Point of Care 114 mg/dl (70-99)
[2024-08-17] MEDS: TYLENOL 650 MG PO (11:51)
--- NOTE | 2024-08-17 12:25 | WOUNDNOTE ---
RIGHT HIP WOUND
--- NOTE | 2024-08-17 12:26 | WOUNDNOTE ---
LEFT HIP WOUND
[2024-08-17 13:50] VITALS: BP 130/65; PULSE 75; O2SAT 99
--- NOTE | 2024-08-17 13:52 | W.DS.TRANS ---
DC Summary - Monitoring Analyst
-
Discharge Instructions:
Sleep Apnea Risk Intermediate
Discharge Diagnosis/Procedures Left hip wound
Bilateral BKA
ASCVD
Paroxysmal atrial fibrillation.
End-stage renal disease on hemodialysis per
Benign hypertension
Diabetes type 2.
Asthma without exacerbation
Diet Regular
Instructions:
Stand-Alone Forms:
Changes to Home Medications: No
Discharge Medications:
DC Medications w/original date entered in [employer]
acetaminophen 325 mg tablet (Tylenol) 650 mg PO Q4HPRN PRN MILD PAIN 07/08/24
albuterol sulfate 90 mcg/actuation aerosol inhaler 2 puff inhalation R Q6HPRN PRN SOB 07/08/24
amiodarone 200 mg tablet 200 mg PO DAILY Heart Disease/Condition 07/08/24
aspirin 81 mg tablet,delayed release 81 mg PO DAILY Blood Clot Prevention/Tx 07/08/24
atorvastatin 80 mg tablet (Lipitor) 80 mg PO QPM High Cholesterol 07/08/24
clopidogrel 75 mg tablet (Plavix) 75 mg PO DAILY Blood Clot Prevention/Tx 07/08/24
docusate sodium 100 mg capsule (Colace) 100 mg PO BID Gastrointestinal Issue 07/08/24
doxycycline hyclate 100 mg capsule 100 mg PO BID Infection 07/08/24
gabapentin 300 mg capsule 300 mg PO TID Neurological Condition 07/08/24
insulin glargine 100 unit/mL (3 mL) subcutaneous pen (Lantus Solostar U-100 Insulin) 7 unit SC HS Diabetes 07/08/24
lactulose 10 gram/15 mL oral solution 20 g PO BIDPRN PRN CONSTIPATION 07/08/24
loperamide 2 mg tablet 2 mg PO DAILYPRN PRN DIARRHEA 07/08/24
metoprolol succinate 25 mg tablet,extended release 24 hr (Toprol XL) 12.5 mg PO DAILY Blood Pressure 07/08/24
montelukast 10 mg tablet (Singulair) 10 mg PO HS Allergies 07/08/24
nystatin 100,000 unit/gram topical cream 1 applic topical DAILY GROIN 07/08/24
ondansetron HCl 4 mg tablet 4 mg PO Q8HPRN PRN NAUSEA 07/08/24
pantoprazole 40 mg tablet,delayed release (Protonix) 40 mg PO DAILY Gastrointestinal Issue 07/08/24
phenyleph-shark liver vde-koiqyc-srn rectal cream 1 applic GA DAILYPRN PRN AFTER EACH LOOSE STOOL 07/08/24
phenyleph-shark liver low-tjaogx-mox rectal cream 1 applic GA HS Gastrointestinal Issue 07/08/24
polyethylene glycol 3350 17 gram oral powder packet (Miralax) 17 g PO DAILY Gastrointestinal Issue 07/08/24
sennosides 8.6 mg tablet (senna) 17.2 mg PO BID Gastrointestinal Issue 07/08/24
simethicone 125 mg chewable tablet (Gas-X Extra Strength) 125 mg PO Q6HPRN PRN GAS PAINS 07/08/24
capsaicin 0.075 % topical cream (Arthritis Pain Relief (capsaicin)) 1 applic topical BID Pain 08/16/24
diclofenac sodium 1 % topical gel 2 g topical BID Pain 08/16/24
fentanyl 12 mcg/hr transdermal patch 1 patch transdermal Q72H Pain #5 ea 08/17/24
tramadol 50 mg tablet 50 mg PO Q8H PRN Pain #14 tabs 08/17/24
Home Medication Changes
Pending Results: No
--- NOTE | 2024-08-17 13:53 | CM ---
Addendum entered by Owen Sifuentes 08/17/24 15:14:
finishing range supervisor time 17:30.
[facility] liaison has been notified.
Original Note:
CM following re: discharge planning.
Reviewed pt's chart, met with pt.
Discharge order noted. Pt is aware.
Pt is a LTC resident at [facility]. A referral to [facility] made, spoke to liaison Anitra and she confirmed that pt is accepted for admission today.
to arrange ambulance BLS. PMNR completed and left with .
[facility] nursing report: [phone]
Discharge instructions fax: [phone]
D/C plan: return back to [facility] for a LTC.
--- NOTE | 2024-08-17 15:02 | W.DCSUMMARY ---
Discharge Summary
Discharge Data
Date of Admission: 08/16/24
Date of Discharge: 08/17/24
-
Pending Results: No
Hospital Course
Impression
Patient is a 64y F with PMH significant for ASCVD, ESRD on HD, HTN and DM-II who presents to ED from local [place] for evaluation of L hip wound.
Infected left hip wound
Patient without evidence of systemic infection and sepsis.
Blood cultures negative to date
Status post sharp bedside debridement by surgery. Follow-up wound expection with clean borders.
Preliminary wound culture with rare WBC gram-positive/gram-negative pending final identification
Continue wound care.
Continue and complete course of doxycycline for additional 5 to 7 days.
Other conditions
Bilateral BKA
ASCVD
Paroxysmal atrial fibrillation.
End-stage renal disease on hemodialysis per
Benign hypertension
Diabetes type 2.
Asthma without exacerbation
Plan
Infected left hip wound with necrotic eschar.
Presented with foul-smelling discharge, although hemodynamically stable, afebrile with normal white count and no evidence for systemic infection
X-ray with no evidence of osteomyelitis.
Status post bedside sharp debridement by general surgery.
Follow wound cultures
She has been initiated on doxycycline prior to admission. Noted with multiple antibiotic allergies
ASCVD
- Stable. CAD with prior stents. Multiple previous strokes.
- No new symptoms.
- Hold Plavix acutely pending any surgery / debridement.
- Continue other outpatient med regimen including ASA, etc.
Paroxysmal Atrial Fibrillation
- Listed on [place] record and patient on amiodarone per APR.
- Not on any OAC - despite reported A-Fib and separate 'clotting disorder'.
- Continue current CV medications.
- ? consider addition of OAC to current regimen.
ESRD on HD
- Stable. Receives HD --.
- No gross evidence of volume overload on exam.
- Nephrology evaluation for HD needs during acute stay.
Benign Hypertension
- Stable. Continue current medications.
DM-II
- Continue basal : bolus insulin regimen.
- Follow glucose and cover with SSI as needed.
- Hemoglobin A1c 4.8
Asthma
- Stable. No active wheezing, dyspnea, etc.
- Continue inhaled medication regimen.
Discharge Plan
-
Patient Disposition: Jail/SNF
Discharge Diagnosis/Procedures: Left hip wound
Bilateral BKA
ASCVD
Paroxysmal atrial fibrillation.
End-stage renal disease on hemodialysis per
Benign hypertension
Diabetes type 2.
Asthma without exacerbation
Condition: Good
Diet: Regular
Activity Restrictions/Additional Instructions:
Wound Care Instructions
L hip- Clean with 1/ 4 strength Dakins solution. Apply isra thick layer of SANTYL at base of wound and cover with adaptic. Loosely pack wound with saline moistened gauze including 3 cm tunnel at 7 oclock. Cover with dry dressing.
L ischium: Clean with 1/4 strength Dakins. Loosely pack with saline moist gauze to base followed by dry dressing.
L ear rim: skin prep and small silicone foam change q 3 days and prn soilage. R hip: silicone foam to protect change prn soilage.
air mattress
ROHO cushion when sitting, recommend for meals only
Increase protein in diet
Follow up at wound care center call for an appointment.
Referrals:
Camacho Al MD [Family Provider]
Prescriptions:
Continued
atorvastatin [Lipitor] 80 mg Tablet
80 mg PO QPM
sennosides [senna] 8.6 mg Tablet
17.2 mg PO BID
acetaminophen [Tylenol] 325 mg Tablet
650 mg PO Q4HPRN PRN (Reason: MILD PAIN)
doxycycline hyclate 100 mg Capsule
100 mg PO BID
Rx Instructions:
TAKE UNTIL 07/08/24
polyethylene glycol 3350 [Miralax] 17 gram Powder In Packet
17 g PO DAILY
amiodarone 200 mg Tablet
200 mg PO DAILY
ondansetron HCl 4 mg Tablet
4 mg PO Q8HPRN PRN (Reason: NAUSEA)
loperamide 2 mg Tablet
2 mg PO DAILYPRN PRN (Reason: DIARRHEA)
clopidogrel [Plavix] 75 mg Tablet
75 mg PO DAILY
aspirin 81 mg Tablet,Delayed Release (Dr/Ec)
81 mg PO DAILY
pantoprazole [Protonix] 40 mg Tablet,Delayed Release (Dr/Ec)
40 mg PO DAILY
nystatin 100,000 unit/gram Cream
1 applic TOPICAL DAILY
docusate sodium [Colace] 100 mg Capsule
100 mg PO BID
gabapentin 300 mg Capsule
300 mg PO TID
simethicone [Gas-X Extra Strength] 125 mg Tablet,Chewable
125 mg PO Q6HPRN PRN (Reason: GAS PAINS)
montelukast [Singulair] 10 mg Tablet
10 mg PO HS
metoprolol succinate [Toprol XL] 25 mg Tablet Extended Release 24 Hr
12.5 mg PO DAILY
albuterol sulfate 90 mcg/actuation Hfa Aerosol Inhaler
2 puff INHALATION R Q6HPRN PRN (Reason: SOB)
lactulose 10 gram/15 mL Solution
20 g PO BIDPRN PRN (Reason: CONSTIPATION)
phenyleph-shark nix-zjvd-wme Cream
1 applic TN HS
phenyleph-shark zgx-sduq-rnf Cream
1 applic TN DAILYPRN PRN (Reason: AFTER EACH LOOSE STOOL)
insulin glargine [Lantus Solostar U-100 Insulin] 100 unit/mL (3 mL) Insulin Pen
7 unit SC HS
capsaicin [Arthritis Pain Relief(capsaic)] 0.075 % Cream
1 applic TOPICAL BID
Rx Instructions:
Apply to bilateral hips / thighs twice daily.
diclofenac sodium 1 % Gel
2 g TOPICAL BID
Rx Instructions:
Apply to R BKA BID
tramadol 50 mg Tablet
50 mg PO Q8H PRN (Reason: Pain) Qty: 14 0RF
fentanyl 12 mcg/hr Patch 72 Hour
1 patch TRANSDERMAL Q72H Qty: 5 0RF
Discharge Orders:
Discharge Patient (As Directed); Ordered 08/17/24
Ordered By: Portillo Shaw
Discharge Date and Time
Print Language: MALAY
[2024-08-17 15:05] VITALS: BP 140/69
--- NOTE | 2024-08-17 15:13 | W.PN.NEPH.PH ---
Today's Communication / Plan
-
Dialysis tomorrow patient remains in the hospital
Assessment/Plan
-
IMP:
ESRD dialysis since December 2023
Right IJ tunneled dialysis catheter
Left hip wound
Insulin-dependent diabetes mellitus
history of bilateral BKA
Ambulatory dysfunction
Hyperlipidemia
GERD
Plan:
Dialysis Wednesday
Dialysis order= please refer to orders for details
Epogen as indicated for hemoglobin goal between 10 and 11
Wound management
Antibiotic renally dosed
-
-
Date of Service: August 17, 2024
CC / HPI / ROS
-
Chief Complaint:
Wound
History of Present Illness:
ESRD presents with wound infection
Review of Systems:
No chest pain or shortness of breath
Labs
-
Labs:
WBC 7.6 10^3/uL (4.8-10.8) 08/16/24 06:47
RBC 4.07 10^6/uL (4.20-5.40) L 08/16/24 06:47
Hgb 10.8 g/dL (12.0-16.0) L 08/16/24 06:47
Hct 35.1 % (37.0-47.0) L 08/16/24 06:47
Plt Count 205 10^3/uL (130-400) 08/16/24 06:47
Sodium 135 mmol/L (135-145) 08/16/24 06:46
Potassium 4.0 mmol/L (3.5-5.1) 08/16/24 06:46
Chloride 105 mmol/L (98-107) 08/16/24 06:46
Carbon Dioxide 21 mmol/L (22-30) L 08/16/24 06:46
BUN 57 mg/dl (7-17) H 08/16/24 06:46
Creatinine 3.1 mg/dL (0.6-1.0) H 08/16/24 06:46
eGFR 16.39 08/16/24 06:46
Glucose 71 mg/dl (70-99) 08/16/24 06:46
Calcium 7.6 mg/dl (8.4-10.2) L 08/16/24 06:46
Albumin 2.4 g/dl (3.5-5.0) L 08/15/24 21:21
Physical Exam
-
Vital Signs:
Vital Signs
Temp Pulse Resp BP Pulse Ox
97.6 F 80 16 132/75 99
08/17/24 07:10 08/17/24 08:47 08/17/24 07:10 08/17/24 08:47 08/17/24 11:00
Respiratory:: Bilateral: CTA
Lung Excursion:: Normal
Abdomen:: Soft
Bowel Sounds:: Normal
Extremity Edema:: +1: Bilateral:
[2024-08-17 16:27] LABS: Glucose - Point of Care 107 mg/dl (70-99)
[2024-08-17 19:47] LABS: Hepatitis B Surface Antigen Negative (Negative)
== END 2024-08-17 17:35 | DRG 570 ==
LOC: 2 NORTH 02:06
PROVIDERS: Emergency Medicine; ADMITTING PHYSICIAN Hospitalist; ATTENDING PHYSICIAN Internal Medicine; CONSULT PHYSICIAN Surgery; EMERGENCY PHYSICIAN Student in an Organized Health Care Education/Training Program; FAMILY PHYSICIAN Internal Medicine; OTHER PHYSICIAN Internal Medicine Nephrology
PROC: 5A1D70Z Performance of Urinary Filtration, Intermittent, Less than 6 Hours Per Day (ICD-10-PCS; 2024-08-16)
PROC: 0JBM0ZZ Excision of Left Upper Leg Subcutaneous Tissue and Fascia, Open Approach (ICD-10-PCS; 2024-08-16)
DX: L89.224 Pressure ulcer of left hip, stage 4 (principal); N18.6 End stage renal disease; I12.0 Hypertensive chronic kidney disease with stage 5 chronic kidney disease or end stage renal disease; D68.9 Coagulation defect, unspecified; I25.10 Atherosclerotic heart disease of native coronary artery without angina pectoris; E11.22 Type 2 diabetes mellitus with diabetic chronic kidney disease; Z99.2 Dependence on renal dialysis; E11.69 Type 2 diabetes mellitus with other specified complication; K21.9 Gastro-esophageal reflux disease without esophagitis; E66.9 Obesity, unspecified; Z92.21 Personal history of antineoplastic chemotherapy; Z92.3 Personal history of irradiation; Z85.42 Personal history of malignant neoplasm of other parts of uterus; Z85.89 Personal history of malignant neoplasm of other organs and systems; J45.909 Unspecified asthma, uncomplicated; Z89.511 Acquired absence of right leg below knee; Z89.512 Acquired absence of left leg below knee; Z95.5 Presence of coronary angioplasty implant and graft; Z82.5 Family history of asthma and other chronic lower respiratory diseases; Z82.49 Family history of ischemic heart disease and other diseases of the circulatory system; Z83.2 Family history of diseases of the blood and blood-forming organs and certain disorders involving the immune mechanism; Z88.1 Allergy status to other antibiotic agents; Z88.0 Allergy status to penicillin; Z87.892 Personal history of anaphylaxis; Z91.040 Latex allergy status; Z88.5 Allergy status to narcotic agent; Z79.82 Long term (current) use of aspirin; M19.90 Unspecified osteoarthritis, unspecified site; Z79.02 Long term (current) use of antithrombotics/antiplatelets; Z79.4 Long term (current) use of insulin; Z79.899 Other long term (current) drug therapy; Z86.73 Personal history of transient ischemic attack (TIA), and cerebral infarction without residual deficits; E78.5 Hyperlipidemia, unspecified; I48.0 Paroxysmal atrial fibrillation; Z90.710 Acquired absence of both cervix and uterus; Z91.018 Allergy to other foods
CPT/HCPCS: 73502; 80048; 80053; 82962; 83036; 83605; 85025; 85027; 85610; 86706; 87040; 87070; 87075; 87076; 87077; 87185; 87186; 87205; 87340; 96374; 96375; 97163; 99284; G0257; P9047

== ENCOUNTER 2024-08-25 17:38 | Emergency (ER) | payer OTHER, SELFPAY ==
[2024-08-25 17:41] VITALS: BP 85/57
--- NOTE | 2024-08-25 17:55 | ED.GENMED ---
Addendum entered and electronically signed by Bobby Poole DO 08/25/24 23:08:
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
Original Note:
History of Present Illness
General
Chief Complaint: Cardiac Symptoms
Source: patient
Exam Limitations: none
Time Seen by Provider: 08/25/24 17:39
Nursing documentation reviewed up to this point in time: agreed with
History of Present Illness
History of Present Illness:
65-year-old female multiple chronic medical conditions ESRD CAD amputations developed chest pain 8 out of 10 and jaw up into her neck the last hour of dialysis around 2 30-3, she tells me that she had normal labs and normal EKG last time she had
chest pain and then had an 80% blockage on cath at [place] and this is similar to that, no fever or chills, no abdominal pain no worsening edema over stumps,
Past History
Past History
ED Past Medical History: Arrthythmia, CAD, CVA, IDDM, Renal failure and Other (Hemiplegia)
ED Past Surgical History: Appendectomy, Cholecystectomy and Other (ERCP)
Social History
Tobacco: Non-smoker
Alcohol: None
Drug: None
Living: halfway
Employment: Retired
Review of Systems
Review of Systems
All Other Systems: Not applicable
Constitutional: Denies fatigue
Cardiac: Reports chest pain
ABD/GI: Reports nausea
Musculoskeletal: Reports no symptoms
Skin: Reports no symptoms
Neurological: Reports weakness
Phy Exam
Physical Exam
Physical Exam:
Physical Exam
General: Chronically ill-appearing female nontoxic
Neck: No jaundice
Heart: s1/s2 regular rate and rhythm, no murmur. equal radial pulses.
Lungs: No crackles
Abdomen: Nontender
Neuro: alert and oriented. no focal neurological deficits
Skin: no rash
Psychiatric: well kept. interactive and cooperative
Extremities: Bilateral BKA
Course
Orders/Labs/Results
Orders:
Orders
08/25/24 17:40
Electrocardiogram (*1) Urgent
Reason for Study: Chest Pain
EKG- Treatment ONCE
CR Chest - 2 Views Urgent
Comment:
Reason For Exam: chest pain
08/25/24 17:46
Complete Blood Count/With Diff Urgent
Comprehensive Metabolic Panel Urgent
Lipase Urgent
Comment: ADD ON
Troponin I Urgent
08/25/24 17:55
Add On- LAB Urgent
Tests Added?: lipase
08/25/24 18:47
Nitroglycerin Sublingual [Nitrostat (Sublingual)] 0.4 mg SL [id number] PRN
08/25/24 18:53
CT Chest PE Study Urgent
Comment:
Reason For Exam: SOB low blood pressure ESRD
0.9% Sodium Chloride 500 ml [Nss] 500 ml IV BOLUS
08/25/24 19:50
Troponin I Urgent
Abnormal Lab Results
08/25/24
17:46
WBC 13.3 H 10^3/uL
(4.8-10.8)
Hgb 11.9 L g/dL
(12.0-16.0)
MCH 25.1 L pg
(27.0-31.0)
MCHC 29.8 L g/dL
(33.0-37.0)
RDW 15.8 H %
(11.5-14.5)
Abs Immat Gran (auto) 0.2 H 10^3/uL
(0-0.05)
Absolute Neuts (auto) 11.4 H 10^3/uL
(1.4-6.5)
Absolute Lymphs (auto) 1.1 L 10^3/uL
(1.2-3.4)
Immature Gran % 1.1 H %
(0-0.5)
Neutrophils % 85.4 H %
(42.2-75.2)
Lymphocytes % 8.0 L %
(20.5-51.1)
Sodium 131 L mmol/L
(135-145)
Creatinine 1.7 H mg/dL
(0.6-1.0)
Calcium 7.7 L mg/dl
(8.4-10.2)
AST 39 H U/L
(14-36)
Albumin 2.9 L g/dl
(3.5-5.0)
08/25/24 17:46
08/25/24 17:46
Vital Signs
Initial and Last Documented VS:
Initial Vital Signs
Temp Pulse Resp BP Pulse Ox
98.0 F 84 20 85/57 97
08/25/24 17:41 08/25/24 17:41 08/25/24 17:41 08/25/24 17:41 08/25/24 17:41
Last Documented Vital Signs
Temp Pulse Resp BP Pulse Ox
98.0 F 78 17 117/77 96
08/25/24 17:41 08/25/24 21:30 08/25/24 21:30 08/25/24 20:00 08/25/24 19:16
MDM/Problems Addressed
Differential Diagnosis Includes:
ACS pancreatitis heart failure PE dissection musculoskeletal pain
MDM/Problems Addressed:
Chest pain low blood pressure
Chronic conditions affecting care: DM, HTN and PVD
Acute Exacerbation and/or Progression of Chronic Illness: DM, HTN and PVD
*Radiology
Radiology exam reviewed: radiology read reviewed
*Pulse Oximetry
SaO2: 97
Oxygen Mode of Delivery: Room air
Patient hypoxic: no
*EKG
Interpreted by ED Provider?: Yes
Interpretation: abnormal
Comparison EKG: no comparison EKG present
Heart Rate: 78
Rate: normal
Rhythm: sinus
Ischemia: non-specific ST changes
*Bartender Helper Interpretation
Rate: normal
Interpretation: normal
Heart Rate: 78
Rhythm: sinus
*Critical Care Note
Total Time (30-74mins, 75-104mins- exclusive of procedures): 30
Update Note
Update Note:
8 PM update first troponin noted, will repeat transient hypotension likely due to volume issues after dialysis she does have pain check CT PE study also rule out dissection
Have ordered a lipase, also requested records from [place] where she states she had a stent placed
10:20 PM second troponin noted lipase noted no records have arrived, records from [place] reviewed, was admitted a week or so ago with infected decubiti treated with sharp debridement by general surgery and offloading, month or 2 before that she
had short stay if she missed dialysis
ED Attending Note
-
Portions of this chart may have been created with voice recognition software.� Occasional wrong word or��sound alike� substitutions may have occurred due to the inherent limitations of voice recognition software.
Discharge Plan
Departure
Prescriptions:
No Action
atorvastatin [Lipitor] 80 mg Tablet
80 mg PO QPM
sennosides [senna] 8.6 mg Tablet
17.2 mg PO BID
acetaminophen [Tylenol] 325 mg Tablet
650 mg PO Q4HPRN PRN (Reason: MILD PAIN)
doxycycline hyclate 100 mg Capsule
100 mg PO BID
Rx Instructions:
TAKE UNTIL 07/08/24
polyethylene glycol 3350 [Miralax] 17 gram Powder In Packet
17 g PO DAILY
amiodarone 200 mg Tablet
200 mg PO DAILY
ondansetron HCl 4 mg Tablet
4 mg PO Q8HPRN PRN (Reason: NAUSEA)
loperamide 2 mg Tablet
2 mg PO DAILYPRN PRN (Reason: DIARRHEA)
clopidogrel [Plavix] 75 mg Tablet
75 mg PO DAILY
aspirin 81 mg Tablet,Delayed Release (Dr/Ec)
81 mg PO DAILY
pantoprazole [Protonix] 40 mg Tablet,Delayed Release (Dr/Ec)
40 mg PO DAILY
nystatin 100,000 unit/gram Cream
1 applic TOPICAL DAILY
docusate sodium [Colace] 100 mg Capsule
100 mg PO BID
gabapentin 300 mg Capsule
300 mg PO TID
simethicone [Gas-X Extra Strength] 125 mg Tablet,Chewable
125 mg PO Q6HPRN PRN (Reason: GAS PAINS)
montelukast [Singulair] 10 mg Tablet
10 mg PO HS
metoprolol succinate [Toprol XL] 25 mg Tablet Extended Release 24 Hr
12.5 mg PO DAILY
albuterol sulfate 90 mcg/actuation Hfa Aerosol Inhaler
2 puff INHALATION R Q6HPRN PRN (Reason: SOB)
lactulose 10 gram/15 mL Solution
20 g PO BIDPRN PRN (Reason: CONSTIPATION)
phenyleph-shark kcq-wqfq-byv Cream
1 applic MN HS
phenyleph-shark lpe-uclp-rha Cream
1 applic MN DAILYPRN PRN (Reason: AFTER EACH LOOSE STOOL)
insulin glargine [Lantus Solostar U-100 Insulin] 100 unit/mL (3 mL) Insulin Pen
7 unit SC HS
capsaicin [Arthritis Pain Relief(capsaic)] 0.075 % Cream
1 applic TOPICAL BID
Rx Instructions:
Apply to bilateral hips / thighs twice daily.
diclofenac sodium 1 % Gel
2 g TOPICAL BID
Rx Instructions:
Apply to R BKA BID
tramadol 50 mg Tablet
50 mg PO Q8H PRN (Reason: Pain) Qty: 14 0RF
fentanyl 12 mcg/hr Patch 72 Hour
1 patch TRANSDERMAL Q72H Qty: 5 0RF
Referrals:
Alexander Epps MD [Family Provider, Family Practice]
Interventions
Interventions:
*General Assessment Last Done: 08/25/24 17:41
*ED- Fall Risk Assessment Last Done: 08/25/24 17:54
ED- Pulmonary Assessment Last Done: 08/25/24 17:54
ED- Cardiac Assessment Last Done: 08/25/24 17:54
Discharge Date and Time
Print Language: TUNISIAN
[2024-08-25 17:59] LABS: Hematocrit 39.9 % (37.0-47.0); Hemoglobin 11.9 g/dL (12.0-16.0); Mean Corp Hgb Conc. 29.8 g/dL (33.0-37.0); Mean Corpuscular Volume 84.0 fL (81.0-99.0); Nucleated Red Blood Cells % 0 %; Platelet Count 257 10^3/uL (130-400); Red Cell Dist. Width 15.8 % (11.5-14.5)
[2024-08-25 18:13] LABS: ALT (SGPT) 22 U/L (0-35); AST (SGOT) 39 U/L (14-36); Albumin 2.9 g/dl (3.5-5.0); Alkaline Phosphatase 124 U/L (38-126); Blood Urea Nitrogen 12 mg/dl (7-17); Calcium 7.7 mg/dl (8.4-10.2); Carbon Dioxide 24 mmol/L (22-30); Chloride 101 mmol/L (98-107); Glucose 92 mg/dl (70-99); Potassium 3.8 mmol/L (3.5-5.1); Sodium 131 mmol/L (135-145); Total Protein 7.2 g/dl (6.3-8.2); eGFR 33.70
[2024-08-25 18:18] LABS: Lipase 69 U/L (23-300)
[2024-08-25 18:25] LABS: Troponin I 0.030 ng/ml
--- NOTE | 2024-08-25 19:00 | EDRN ---
Report received, checked on patient, patient on some things from [facility], rolled patient to get her off of sheets and adjusted pillow under her left back side per her request, wants to stay that way due to a wound she has, pt waiting for CT, IV
placed for this.
[2024-08-25 19:15] VITALS: BP 121/61
[2024-08-25 20:00] VITALS: BP 117/77
[2024-08-25 20:19] LABS: Troponin I 0.031 ng/ml
--- NOTE | 2024-08-25 22:33 | EDRN ---
Updated patient on results and aware waiting on a plan at this time, patient is resting comfortably and watching something on her phone
[2024-08-25 23:00] VITALS: BP 112/60
[2024-08-25] MEDS: PERCOCET 5/325 1 TABLET PO (23:33)
[2024-08-26] VITALS: BP 127/74
[2024-08-26 01:00] VITALS: BP 111/61
== END 2024-08-26 01:48 | disposition home or self-care (01) ==
LOC: EMR 17:38
PROVIDERS: EMERGENCY PHYSICIAN Emergency Medicine; FAMILY PHYSICIAN Family Medicine
DX: R11.0 Nausea (principal); R07.9 Chest pain, unspecified; R68.84 Jaw pain; M54.9 Dorsalgia, unspecified; R53.1 Weakness; I12.0 Hypertensive chronic kidney disease with stage 5 chronic kidney disease or end stage renal disease; E11.22 Type 2 diabetes mellitus with diabetic chronic kidney disease; E11.51 Type 2 diabetes mellitus with diabetic peripheral angiopathy without gangrene; N18.6 End stage renal disease; I25.10 Atherosclerotic heart disease of native coronary artery without angina pectoris; Z99.2 Dependence on renal dialysis; Z79.4 Long term (current) use of insulin; Z79.82 Long term (current) use of aspirin; Z90.49 Acquired absence of other specified parts of digestive tract; Z89.512 Acquired absence of left leg below knee; Z89.511 Acquired absence of right leg below knee; Z88.1 Allergy status to other antibiotic agents; Z88.3 Allergy status to other anti-infective agents; Z91.040 Latex allergy status; Z88.5 Allergy status to narcotic agent; Z88.0 Allergy status to penicillin; Z88.8 Allergy status to other drugs, medicaments and biological substances; Z91.018 Allergy to other foods; Z91.048 Other nonmedicinal substance allergy status
CPT/HCPCS: 99291; 71046; 71275; 80053; 83690; 84484; 85025; 93005; Q9967

== ENCOUNTER 2024-09-10 18:22 | Inpatient (IN) | payer OTHER, SELFPAY ==
[2024-09-10] VITALS (15 sets, daily range): BP systolic 78–147; BP diastolic 25–101
[2024-09-10 15:00] LABS: Hematocrit 35.0 % (37.0-47.0); Hemoglobin 11.0 g/dL (12.0-16.0); Mean Corp Hgb Conc. 31.4 g/dL (33.0-37.0); Mean Corpuscular Volume 80.3 fL (81.0-99.0); Nucleated Red Blood Cells % 0 %; Platelet Count 152 10^3/uL (130-400); Red Cell Dist. Width 17.2 % (11.5-14.5)
--- NOTE | 2024-09-10 15:00 | ED.GENMED ---
History of Present Illness
General
Chief Complaint: Rectal Bleeding
Source: patient, records and family
Exam Limitations: clinical condition
Time Seen by Provider: 09/10/24 12:49
History of Present Illness
History of Present Illness:
64-year-old female brought in for blood in her diaper. They were concerned about rectal bleeding. Family however notes a change in mental status. She seems confused which is unusual for her. Patient denies under other complaints. She has known
wounds to her sacrum and back and legs.
Past History
Past History
ED Past Medical History: Arrthythmia, CAD, CVA, IDDM, Renal failure and Other (Hemiplegia)
ED Past Surgical History: Appendectomy, Cholecystectomy and Other (ERCP)
Social History
Tobacco: Non-smoker
Alcohol: None
Drug: None
Living: [facility]
Employment: Retired
Review of Systems
Review of Systems
All Other Systems: Not applicable
Constitutional: Denies fever or chills
Respiratory: Reports no symptoms
Cardiac: Reports no symptoms
Phy Exam
Physical Exam
Physical Exam:
GENERAL: Alert. Old for stated age. Chronically ill-appearing
EYE: Orbits normal.
NECK: Supple
CARDIAC: Regular rate and rhythm without any obvious murmurs.
LUNGS: Clear breath sounds,normal
ABDOMEN: Soft, without focal tenderness or distention. Rectal exam negative
NEUROLOGICAL: Alert and oriented , grossly non-focal
SKIN: Warm and dry, no rash or lesion, no discoloration, skin intact.
MUSCULOSKELETAL: Catheter chest wall. Induration abscess to the left buttock with significant drainage. Open wound. Bilateral amputations
PSYCH: Normal and appropriate interaction.
Course
Orders/Labs/Results
Orders:
Orders
09/10/24 Breakfast
Clear Liquid
At Your Request: Limited Participation
09/10/24 14:28
CT Head W/o Iv Contrast Urgent
Comment:
Reason For Exam: Change in mental status
09/10/24 14:45
Type And Crossmatch [Type+Screen] Urgent
Complete Blood Count/With Diff Urgent
Comprehensive Metabolic Panel Urgent
09/10/24 15:01
CT Pelvis W/o Iv Contrast Urgent
Comment:
Reason For Exam: Drainage left posterior pelvis
09/10/24 15:02
Aztreonam [Azactam] 2,000 mg IV NOW STA
09/10/24 15:07
Wound Culture [Wound/Abscess/Other Culture] Urgent
JAMIE Source: Abscess
Specimen Description:
Date Specimen was Collected: 09/10/24
Time Specimen was Collected: 15:02
09/10/24 17:24
Aztreonam [Azactam] 2,000 mg .ROUTE .STK-MED ONE
Sterile Water [Sterile Water For Injection] 10 ml .ROUTE .STK-MED ONE
09/10/24 17:33
Admit/Transfer Patient As Directed
Co-Sign Provider:
Level of Care: Inpatient admission
Assign to:: Medical/Surgical
Physician / Group: Adri
Diagnosis: Perirectal Abscess, Infected wounds
Reason for Hospitalization: IV abx
Expected length of stay greater than two midnights?: Yes
ELOS- Estimated Length of Stay in days: 3
I certify the patient meets the requirements for IP care: Yes
PRN Pain Medication Management As Directed
May give lesser potent ordered pain med per pt: Yes
preference::
Protocol:: Medication orders for pain may be administered in a
manner that supports deferring to patient preference
when the pt is:
- Requesting an ordered lesser potent pain medication.
Least to most potent pain medications are defined
as: acetaminophen < NSAID < tramadol < opioids
(morphine, oxycodone, hydromorphone).
- Requesting a lesser dose of the same medication IF
ORDERED.
- Requesting a less intrusive route of administration
if both routes are prescribed by the provider (PO <
IV).
09/10/24 17:38
Code Status As Directed
Resuscitation Status: Do not resuscitate
Reached after discussion with pt or family/Healthcare POA: Yes
DNR Bracelet Application ONCE
09/10/24 18:35
Acetaminophen [Tylenol] 650 mg PO Q4HPRN PRN mild pain/fever
Dextrose 50%-Water [Dextrose 50% Syringe] 12.5 grams IV [id number] PRN
FentaNYL 12 MCG/HR PATCH [Duragesic 12 Mcg/Hr Patch] 1 patch TRANSDERM Q72H
Glucagon [GlucaGen] 1 mg IM PRN PRN
REMOVE fentaNYL PATCH [Remove Duragesic Patch] See Dose Instructions REMOVE Q72H
Tramadol HCl [Ultram] 50 mg PO Q12H PRN moderate pain
09/10/24 18:35
ColoRectal Surgery Consult Routine
Consulting Provider: Vlad Prieto
Was physician already notified: Yes
INFECTIOUS DISEASE CONSULT Routine
Consulting Provider: Medardo Johnson
Was physician already notified: Yes
NEPHROLOGY CONSULT Routine
Consulting Provider: Antonio Luciano
Was physician already notified: Yes
SURGICAL CONSULT Routine
Consulting Provider: Jose Solis
Was physician already notified: Yes
WOUND/OSTOMY CONSULT Routine
Reason for Consult: Left Hip and Ischial Wounds
MRSA Screen Routine
JAMIE Source: Nose
Specimen Description:
Activity As Directed
Activity Level: With Assistance
As Tolerated
Bedside Glucose Monitoring As Directed
Frequency: AC&HS
Additional Instructions:: Change to q6h if pt on TPN, tube feeding or not eating
Fentanyl Patch Confirmation BID@[id number]
I&O [Intake/ Output] As Directed
Frequency: q12h
Vital Signs As Directed
Frequency: Per unit guidelines
DX Deep Vein Thrombosis Video Routine
09/10/24 20:00
Heparin 5,000 units SC Q12
Meropenem [Merrem] 1,000 mg IV Q24H
Miconazole Nitrate [Desenex/Mitrazol/Zeasorb] See Dose Instructions TOPICAL BID
09/10/24 22:00
Atorvastatin [Lipitor] 80 mg PO HS
Montelukast Sodium [Singulair] 10 mg PO HS
09/11/24 Breakfast
NPO
Allow oral meds: Yes
Allow clear liquids: 4hrs prior to procedure
NPO with Ice Chips: Yes
Comment: may have unrestricted clear liquid up to 4 hrs prior to scheduled procedure
Basic Metabolic Panel IN AM
Complete Blood Count/No Diff IN AM
09/11/24 07:30
Insulin Aspart Corrective Low [Novolog Flexpen-Low Resistance] See Protocol SC AC
09/11/24 08:00
Amiodarone [Pacerone] 200 mg PO DAILY
Aspirin Chewable [Low Strength Aspirin] 81 mg PO DAILY
Clopidogrel Bisulfate [Plavix] 75 mg PO DAILY
Gabapentin [Neurontin] 300 mg PO DAILY
Metoprolol Xl [Toprol Xl] 12.5 mg PO DAILY
Pantoprazole [Protonix] 40 mg PO DAILY
Venlafaxine [Effexor] 37.5 mg PO DAILY
Abnormal Lab Results
09/10/24 09/10/24 09/10/24
14:45 15:26 16:02
Hgb 11.0 L g/dL
(12.0-16.0)
Hct 35.0 L %
(37.0-47.0)
MCV 80.3 L fL
(81.0-99.0)
MCH 25.2 L pg
(27.0-31.0)
MCHC 31.4 L g/dL
(33.0-37.0)
RDW 17.2 H %
(11.5-14.5)
Neutrophils % 76.0 H %
(42.2-75.2)
Lymphocytes % 17.1 L %
(20.5-51.1)
Sodium 131 L mmol/L
(135-145)
Carbon Dioxide 18 L mmol/L
(22-30)
BUN 36 H mg/dl
(7-17)
Creatinine 2.8 H mg/dL
(0.6-1.0)
Glucose 67 L mg/dl
(70-99)
Calcium 7.4 L mg/dl
(8.4-10.2)
Total Protein 5.9 L g/dl
(6.3-8.2)
Albumin 2.1 L g/dl
(3.5-5.0)
POC Glucose 67 L mg/dl 56 L mg/dl
(70-99) (70-99)
09/10/24
18:12
Hgb
Hct
MCV
MCH
MCHC
RDW
Neutrophils %
Lymphocytes %
Sodium
Carbon Dioxide
BUN
Creatinine
Glucose
Calcium
Total Protein
Albumin
POC Glucose 116 H mg/dl
(70-99)
09/10/24 14:45
09/10/24 14:45
Vital Signs
Initial and Last Documented VS:
Initial Vital Signs
Temp
98.2 F
09/10/24 12:42
Last Documented Vital Signs
Temp Pulse Resp BP Pulse Ox
99.1 F 90 17 109/60 98
09/10/24 23:11 09/10/24 23:11 09/10/24 23:11 09/10/24 23:11 09/10/24 23:11
MDM/Problems Addressed
Differential Diagnosis Includes:
Patient with mental status change. I do not feel this is rectal bleeding. Stool is negative. Bleeding likely from the wound or abscess. Significant drainage from the abscess. With mental status change this may be the etiology. Cover with
antibiotics. CT scans pending.
*Radiology
Radiology exam reviewed: radiology read reviewed (Perirectal abscess/cellulitis. Negative head CT)
*Pulse Oximetry
SaO2: 99
Oxygen Mode of Delivery: Room air
Patient hypoxic: no
*Critical Care Note
Total Time (30-74mins, 75-104mins- exclusive of procedures): Not Applicable
Data Reviewed
Review of Other/Old Records Reveals: Labs, Records and Radiology Studies
Update Note
Update Note:
Patient was reevaluated. This appears to be a indurated abscess to the left buttock area. There is significant drainage. Stool is brown and test negative. Doubt GI bleed. However with mental status change and likely abscess status patient will
be started on antibiotics and admitted. Await further testing before admission
ED Attending Note
-
Portions of this chart may have been created with voice recognition software.� Occasional wrong word or��sound alike� substitutions may have occurred due to the inherent limitations of voice recognition software.
Discharge Plan
Departure
Patient Disposition: Admit
Date of Disposition: 09/10/24
Time of Disposition: 16:53
Presentation/result/management discussed w/ accepting MD/DO: Hospitalist
Discharge Problem:
Perirectal abscess/osteomyelitis, Renal failure, Change in mental status, Multiple decubitus wounds
Interventions
Interventions:
*Risk Screen - Suicide Last Done: 09/10/24 12:46
*General Assessment Last Done: 09/10/24 12:46
*Neglect/Abuse Screening Last Done: 09/10/24 12:46
*ED- Fall Risk Assessment Last Done: 09/10/24 12:47
*ED COVID-19 Vaccine History Last Done: 09/10/24 12:47
*Nursing Disposition Last Done: 09/10/24 18:28
YO-Bqnlbu-Devhbxolfp Assessment Last Done: 09/10/24 13:18
ED- Cardiac Assessment Last Done: 09/10/24 13:18
ED- Pulmonary Assessment Last Done: 09/10/24 13:18
Discharge Date and Time
Discharge Date/Time: 09/10/24 18:38
[2024-09-10 15:21] LABS: ALT (SGPT) 16 U/L (0-35); AST (SGOT) 23 U/L (14-36); Albumin 2.1 g/dl (3.5-5.0); Alkaline Phosphatase 105 U/L (38-126); Blood Urea Nitrogen 36 mg/dl (7-17); Calcium 7.4 mg/dl (8.4-10.2); Carbon Dioxide 18 mmol/L (22-30); Chloride 105 mmol/L (98-107); Estimated Creatinine Clearance 19 ml/min; Glucose 67 mg/dl (70-99); Potassium 3.9 mmol/L (3.5-5.1); Sodium 131 mmol/L (135-145); Total Protein 5.9 g/dl (6.3-8.2); eGFR 18.51
[2024-09-10 15:28] LABS: Glucose - Point of Care 67 mg/dl (70-99)
[2024-09-10 16:03] LABS: Glucose - Point of Care 56 mg/dl (70-99)
[2024-09-10 16:39] LABS: Glucose - Point of Care 71 mg/dl (70-99)
--- NOTE | 2024-09-10 16:59 | HPS.HSE ---
Family Physician
-
Family Physician: Alexander Epps MD
Chief Complaint
-
Bloody drainage from rectal area
History of Present Illness
Patient is a 64 y/o female past medical history of ASCVD, ESRD on HD, A-Fib, DM, and non-healing wound of the left hip and ischial areas who presents with bloody drainage from rectal. Patient reports she has been experiencing increased rectal pain,
and pain with bowel movements. [facility] in her [facility]per and sent her to the emergency department for evaluation. Patient is also complaining about increased drainage from her left hip/ischial wounds for which she
was started on Bactrim on September 03. She denies any fevers, sweats or chills.
Medical History
Past Medical History
Past Medical History: Reports Other
Additional Past Medical History:
ASCVD (CVA x 5, CAD, PAD)
Bedbound State due to Chronic Left Hemiparesis
ESRD on HD (MWF)
Paroxysmal Atrial Fibrillation
Essential Hypertension
Diabetes Mellitus, Type II
Chronic Pain with Opioid Dependence
GERD
Obesity
Uterine Cancer / Vulvar Cancer s/p Surgery, Chemo, XRT
Asthma
? Clotting Disorder
Past Surgical History: Reports Other
Additional Past Surgical History:
Hysterectomy / Vulvectomy
Right IJ Tunneled HD Catheter (last changed in June 2024)
ERCP x 2
Cholecystectomy
Bilateral BKA
Appendectomy
PTCA with Stent x 2
Social History
Tobacco: Non-smoker
Alcohol: None
Drug: None
Living: Residential
Family History
Family History: Other (Sisters (x2): Clotting disorder Father: CAD Mother: COPD)
Allergies / Home Medications
Allergies reflects when Allergies were last updated in [employer].
Home Medications with original date entered in [employer]
Allergy/Medication List:
Allergies
Allergy/AdvReac Type Severity Reaction Status Date / Time
bacitracin (From Neosporin Allergy Rash/bliste Verified 08/25/24 17:41
([id number])) rs
Cephalosporins Allergy Anaphylaxis Verified 08/25/24 17:41
clindamycin Allergy Shortness Verified 08/25/24 17:41
of
Breath/rash,
wheezing
Fish Containing Products Allergy Shortness Verified 08/25/24 17:41
of
Breath/wheezing
latex Allergy Shortness Verified 08/25/24 17:41
of
Breath/rash,
itching
morphine Allergy hallucinati Verified 08/25/24 17:41
ons
neomycin (From Neosporin Allergy Rash/bliste Verified 08/25/24 17:41
([id number])) rs
Penicillins Allergy Anaphylaxis Verified 08/25/24 17:41
polymyxin B (From Neosporin Allergy Rash/bliste Verified 08/25/24 17:41
([id number])) rs
shellfish derived Allergy Shortness Verified 08/25/24 17:41
of
Breath/wheezing
silicone Allergy Rash/bliste Verified 08/25/24 17:41
rs
strawberry Allergy Itching/whe Verified 08/25/24 17:41
ezing
Home Medications
acetaminophen 325 mg tablet (Tylenol) 650 mg PO Q4HPRN PRN mild pain/fever 07/08/24
albuterol sulfate 90 mcg/actuation aerosol inhaler 2 puff inhalation R Q6HPRN PRN SOB 07/08/24
amiodarone 200 mg tablet 200 mg PO DAILY Heart Disease/Condition 07/08/24
atorvastatin 80 mg tablet (Lipitor) 80 mg PO HS High Cholesterol 07/08/24
clopidogrel 75 mg tablet (Plavix) 75 mg PO DAILY Blood Clot Prevention/Tx 07/08/24
docusate sodium 100 mg capsule (Colace) 100 mg PO BID Gastrointestinal Issue 07/08/24
gabapentin 300 mg capsule 300 mg PO DAILY Neurological Condition 07/08/24
insulin glargine 100 unit/mL (3 mL) subcutaneous pen (Lantus Solostar U-100 Insulin) 7 unit SC HS Diabetes 07/08/24
lactulose 10 gram/15 mL oral solution 30 ml PO BIDPRN PRN CONSTIPATION 07/08/24
loperamide 2 mg tablet 2 mg PO DAILYPRN PRN DIARRHEA 07/08/24
metoprolol succinate 25 mg tablet,extended release 24 hr (Toprol XL) 12.5 mg PO DAILY Blood Pressure 07/08/24
montelukast 10 mg tablet (Singulair) 10 mg PO HS Allergies 07/08/24
nystatin 100,000 unit/gram topical cream 1 applic topical TID 07/08/24
ondansetron HCl 4 mg tablet 4 mg PO Q8HPRN PRN NAUSEA 07/08/24
pantoprazole 40 mg tablet,delayed release (Protonix) 40 mg PO DAILY Gastrointestinal Issue 07/08/24
polyethylene glycol 3350 17 gram oral powder packet (Miralax) 17 g PO DAILY Gastrointestinal Issue 07/08/24
sennosides 8.6 mg tablet (senna) 17.2 mg PO BID Gastrointestinal Issue 07/08/24
simethicone 125 mg chewable tablet (Gas-X Extra Strength) 125 mg PO Q6HPRN PRN GAS PAINS 07/08/24
diclofenac sodium 1 % topical gel 4 g topical BID Pain 08/16/24
fentanyl 12 mcg/hr transdermal patch 1 patch transdermal Q72H Pain #5 ea 08/17/24
aspirin 81 mg chewable tablet 81 mg PO DAILY 09/10/24
capsaicin 0.075 % topical cream 1 applic topical BID 09/10/24
glucagon HCl 1 mg solution for injection (Glucagon (HCl) Emergency Kit) 1 mg IM [id number] PRN symptomatic hypoglycemia 09/10/24
phenylephrine 0.25 %-pramoxine 1 %-glycerin-wh.petrolatum rectal cream (Preparation H Maximum Strength) 1 applic TN DAILYPRN PRN rectal pain after BM 09/10/24
phenylephrine 0.25 %-pramoxine 1 %-glycerin-wh.petrolatum rectal cream (Preparation H Maximum Strength) 1 applic TN HS 09/10/24
promethazine 25 mg tablet 25 mg PO Q6HPRN PRN nausea 09/10/24
sulfamethoxazole 400 mg-trimethoprim 80 mg tablet (Bactrim) 1 tab PO HS 09/10/24
tramadol 50 mg tablet 50 mg PO Q8H PRN moderate pain 09/10/24
venlafaxine 37.5 mg tablet 37.5 mg PO DAILY 09/10/24
Review of Systems
-
A 12 point ROS was completed and negative except as noted: Yes
Constitutional: Denies Fever or Chills
Respiratory: Denies Cough or Trouble Breathing
Cardiac: Denies Chest Pain or Palpitations
Physical Exam
Vital Signs
Vital Signs
Temp Pulse Resp BP Pulse Ox
98.2 F 95 14 117/63 97
09/10/24 12:42 09/10/24 16:30 09/10/24 16:30 09/10/24 15:40 09/10/24 16:30
Physical Exam
General: Comfortable and Conversant
HEENT: Anicteric and Moist mucous membranes
Respiratory: Clear and Non Labored Respirations
Cardiac: S1/S2 and Regular Rhythm
GI: Soft and Tender (Mild tendernes to palpation in suprapubic region)
Rectal: Other (Bloody foul drainage from the rachel-rectal)
Musculoskeletal: No Clubbing and No Cyanosis
Skin: Warm, Dry and Rash (Intertrigo / Candidiasis of bilateral breasts)
Neuro: Awake, Alert and Oriented
Laboratory Results
-
09/10/24 14:45
09/10/24 14:45
Laboratory Results
Total Bilirubin 0.6 mg/dl (0.2-1.3) 09/10/24 14:45
AST 23 U/L (14-36) 09/10/24 14:45
ALT 16 U/L (0-35) 09/10/24 14:45
Alkaline Phosphatase 105 U/L (38-126) 09/10/24 14:45
Data Reviewed
-
Lab Data: Labs Reviewed by me
Impression/Plan
-
Perirectal Abscess
-Consult Colorectal Surgery
-Continue Meropenem
-NPO after midnight for possible OR tomorrow
Infected Left Hip and Ischial Wounds
-Consult General Surgery for possible debridement
-Continue Wound Care
-Prior culture with Proteus and ESBL E.coli
-Patient given vancomycin in ED - Check MRSA screen
-Continue meropenem
Intertrigo / Candidiasis of Bilateral Breast Folds
-Continue miconazole powder
ESRD on HD
-Consult Nephrology
ASCVD
-Hold Plavix for OR
-Continue aspirin
Diabetes Mellitus, Type II
-Glucose 67 on ED labs
-Hold Lantus
-Monitor sugars and continue coverage insulin
Paroxysmal Atrial Fibrillation
-Continue Metoprolol and Amiodarone
Essential Hypertension
-Continue Metoprolol
Hyperlipidemia
-Continue Lipitor
Chronic Pain with Opioid Dependence
-Continue fentanyl patch
DVT proph: SC Heparin
Code Status: DNR per patient at time of admission
--- NOTE | 2024-09-10 17:12 | CM ---
CM reviewed chart, unable to speak to pt as provider was with her. Resides in LTC at [facility], receives HD M-W-.
Bed and wheelchair bound, bilateral amputee. Has sacral wounds.
Needs assistance with all personal care.
PCP: Alexander Epps
Discharge plan: Return to [facility]TC when ready for discharge
[2024-09-10] MEDS: AZACTAM 2000 MG IV (17:28)
--- NOTE | 2024-09-10 18:04 | W.PN.UPDATE ---
Update Note
Progress Note Update
This is an addendum to the H&P written by Shamika Reid on 09/10/2024. Patient seen and examined independently with PA.
64-year-old female past medical history of infected left hip wound with necrotic eschar status post debridement, CAD status post stents, paroxysmal atrial fibrillation, ESRD on hemodialysis M,W,F, bilateral BKA, hypertension, diabetes, asthma,
uterine/vulvar cancer status post surgery/chemotherapy and radiation, history of CVA with left residual weakness, presenting with blood in the diaper, ongoing rectal pain for the past month, also change in mental status.
Recently admitted last month for infected left hip wound status post debridement.
Vital signs normal. On exam she has 2 foul smelling hip wounds that are deep, as well as purulent material from perirectal abscess. She is completely alert and oriented.
Labs show hemoglobin of 11 which is stable. Blood sugar [address] head shows no acute intracranial abnormality. Pelvic CT shows left sacral/hip soft tissue ulcers without evidence of underlying active osteomyelitis. Probable component of chronic osteomyelitis involving left ischial tuberosity and proximal
left femur. Diffuse rectal wall thickening suggesting proctitis. Large adjacent perirectal abscess.
Stool was heme-negative and brown.
Patient with rectal bleeding secondary to proctitis/perirectal abscess. Also concern for infected hip wounds/chronic osteomyelitis.
Wound culture sent. Meropenem to treat perirectal abscess/proctitis as well as chronic osteomyelitis with wounds that are foul-smelling. Colorectal surgery consulted for management of proctitis/perirectal abscess. General surgery consulted for
wound debridement. ID consulted. Wound care consulted.
Hold Plavix. Hold Lantus due to borderline hypoglycemia. N.p.o. past midnight for debridement tomorrow.
Candidal infection under breast so topical miconazole.
Nephrology consulted for routine dialysis.
[2024-09-10 18:14] LABS: Glucose - Point of Care 116 mg/dl (70-99)
[2024-09-10] MEDS: MERREM 1000 MG IV (20:02)
[2024-09-10] MEDS: STERILE WATER FOR INJECTION 20 ML IV (20:03)
[2024-09-10] MEDS: HEPARIN 5000 UNITS SC (20:03)
[2024-09-10] MEDS: DESENEX/MITRAZOL/ZEASORB 1 APPLIC TOPICAL (20:03)
[2024-09-10] MEDS: DURAGESIC 12 MCG/HR PATCH 1 PATCH TRANSDERM (20:49)
[2024-09-10] MEDS: REMOVE DURAGESIC PATCH 1 PATCH REMOVE (20:49)
[2024-09-10] MEDS: LIPITOR 80 MG PO (21:05)
[2024-09-10] MEDS: ULTRAM 50 MG PO (21:05)
[2024-09-10] MEDS: SINGULAIR 10 MG PO (21:06)
[2024-09-10 21:59] LABS: Glucose - Point of Care 107 mg/dl (70-99)
[2024-09-11 03:07] LABS: Glucose - Point of Care 88 mg/dl (70-99)
[2024-09-11] MEDS: TYLENOL PO (06:44)
[2024-09-11 07:20] VITALS: BP 97/58
[2024-09-11 07:55] LABS: Glucose - Point of Care 73 mg/dl (70-99)
--- NOTE | 2024-09-11 08:29 | W.CON.NEPH ---
Consultation
-
Date/Time Consultation Requested: 09/11/2024 7 AM
Date/Time Consultation Performed: 09/03/2024 8 AM
Requesting Provider: Dr. Rush
Performing Provider: Dr. Lockhart
Reason for Consultation: ESRD
Medical History
-
Chief Complaint: ESRD
History of Present Illness:
64y F with ESRD on HD Fridays at [facility] via a CVC, ASCVD, DM2 stable on insulin therapy, atrial fibrillation rate controlled on amiodarone therapy, and chronic wounds who presents to ED for eval of L hip wound / drainage.
There is also reports of rectal bloody drainage as well. She reports increasing rectal pain with bowel movements as well as pain with her skin ulcers on bilateral hips as well as buttocks. She denies any fevers chills or sweats. She denies any
issues with dialysis recently.
Past Medical History
ASCVD (CVA x 5, CAD, PAD)
Bedbound State due to Chronic Left Hemiparesis
ESRD on HD (MWF)
Paroxysmal Atrial Fibrillation
Essential Hypertension
Diabetes Mellitus, Type II
Chronic Pain with Opioid Dependence
GERD
Obesity
Uterine Cancer / Vulvar Cancer s/p Surgery, Chemo, XRT
Asthma
Hysterectomy / Vulvectomy
Right IJ Tunneled HD Catheter (last changed in June 2024)
ERCP x 2
Cholecystectomy
Bilateral BKA
Appendectomy
PTCA with Stent x 2
Past Surgical History: Other ( right BKA in 2019, left BKA in 2021, appendectomy, cholecystectomy, ERCP)
Social History
Tobacco: Non-Smoker
Alcohol: None
Drug: None
Living: Longterm
Family History
Family History: Not Pertinent
Allergies / Home Medications
Allergy/AdvReac Type Severity Reaction Status Date / Time
bacitracin (From Neosporin Allergy Rash/bliste Verified 08/25/24 17:41
([id number])) rs
Cephalosporins Allergy Anaphylaxis Verified 08/25/24 17:41
clindamycin Allergy Shortness Verified 08/25/24 17:41
of
Breath/rash,
wheezing
Fish Containing Products Allergy Shortness Verified 08/25/24 17:41
of
Breath/wheezing
latex Allergy Shortness Verified 08/25/24 17:41
of
Breath/rash,
itching
morphine Allergy hallucinati Verified 08/25/24 17:41
ons
neomycin (From Neosporin Allergy Rash/bliste Verified 08/25/24 17:41
([id number])) rs
Penicillins Allergy Anaphylaxis Verified 08/25/24 17:41
polymyxin B (From Neosporin Allergy Rash/bliste Verified 08/25/24 17:41
([id number])) rs
shellfish derived Allergy Shortness Verified 08/25/24 17:41
of
Breath/wheezing
silicone Allergy Rash/bliste Verified 08/25/24 17:41
rs
strawberry Allergy Itching/whe Verified 08/25/24 17:41
ezing
�Medication �Instructions �Recorded �Confirmed �Type
acetaminophen 325 mg tablet 650 mg PO Q4HPRN PRN mild 07/08/24 09/10/24 History
(Tylenol) pain/fever
albuterol sulfate 90 mcg/actuation 2 puff inhalation R Q6HPRN PRN SOB 07/08/24 09/10/24 History
aerosol inhaler
amiodarone 200 mg tablet 200 mg PO DAILY Heart 07/08/24 09/10/24 History
Disease/Condition
atorvastatin 80 mg tablet (Lipitor) 80 mg PO HS High Cholesterol 07/08/24 09/10/24 History
clopidogrel 75 mg tablet (Plavix) 75 mg PO DAILY Blood Clot 07/08/24 09/10/24 History
Prevention/Tx
docusate sodium 100 mg capsule 100 mg PO BID Gastrointestinal 07/08/24 09/10/24 History
(Colace) Issue
gabapentin 300 mg capsule 300 mg PO DAILY Neurological 07/08/24 09/10/24 History
Condition
insulin glargine 100 unit/mL (3 7 unit SC HS Diabetes 07/08/24 09/10/24 History
mL) subcutaneous pen (Lantus
Solostar U-100 Insulin)
lactulose 10 gram/15 mL oral 30 ml PO BIDPRN PRN CONSTIPATION 07/08/24 09/10/24 History
solution
loperamide 2 mg tablet 2 mg PO DAILYPRN PRN DIARRHEA 07/08/24 09/10/24 History
metoprolol succinate 25 mg 12.5 mg PO DAILY Blood Pressure 07/08/24 09/10/24 History
tablet,extended release 24 hr
(Toprol XL)
montelukast 10 mg tablet 10 mg PO HS Allergies 07/08/24 09/10/24 History
(Singulair)
nystatin 100,000 unit/gram topical 1 applic topical TID 07/08/24 09/10/24 History
cream
ondansetron HCl 4 mg tablet 4 mg PO Q8HPRN PRN NAUSEA 07/08/24 09/10/24 History
pantoprazole 40 mg tablet,delayed 40 mg PO DAILY Gastrointestinal 07/08/24 09/10/24 History
release (Protonix) Issue
polyethylene glycol 3350 17 gram 17 g PO DAILY Gastrointestinal 07/08/24 09/10/24 History
oral powder packet (Miralax) Issue
sennosides 8.6 mg tablet (senna) 17.2 mg PO BID Gastrointestinal 07/08/24 09/10/24 History
Issue
simethicone 125 mg chewable tablet 125 mg PO Q6HPRN PRN GAS PAINS 07/08/24 09/10/24 History
(Gas-X Extra Strength)
diclofenac sodium 1 % topical gel 4 g topical BID Pain 08/16/24 09/10/24 History
fentanyl 12 mcg/hr transdermal 1 patch transdermal Q72H Pain #5 ea 08/17/24 09/10/24 Rx
patch
aspirin 81 mg chewable tablet 81 mg PO DAILY Blood Clot 09/10/24 09/10/24 History
Prevention/Tx
capsaicin 0.075 % topical cream 1 applic topical BID Pain 09/10/24 09/10/24 History
glucagon HCl 1 mg solution for 1 mg IM [id number] PRN symptomatic 09/10/24 09/10/24 History
injection (Glucagon (HCl) hypoglycemia
Emergency Kit)
phenylephrine 0.25 %-pramoxine 1 1 applic NE DAILYPRN PRN rectal 09/10/24 09/10/24 History
%-glycerin-wh.petrolatum rectal pain after BM
cream (Preparation H Maximum
Strength)
phenylephrine 0.25 %-pramoxine 1 1 applic NE HS 09/10/24 09/10/24 History
%-glycerin-wh.petrolatum rectal
cream (Preparation H Maximum
Strength)
promethazine 25 mg tablet 25 mg PO Q6HPRN PRN nausea 09/10/24 09/10/24 History
sulfamethoxazole 400 1 tab PO HS Infection 09/10/24 09/10/24 History
mg-trimethoprim 80 mg tablet
(Bactrim)
tramadol 50 mg tablet 50 mg PO Q8H PRN moderate pain 09/10/24 09/10/24 History
venlafaxine 37.5 mg tablet 37.5 mg PO DAILY Mental 09/10/24 09/10/24 History
Health/Anxiety
Review of Systems
-
No chest pain or shortness of breath
All other systems: Negative unless noted
Physical Exam
Vital Signs
Vital Signs
Temp Pulse Resp BP Pulse Ox
99.8 F 92 16 97/58 97
09/11/24 07:20 09/11/24 07:20 09/11/24 07:20 09/11/24 07:20 09/11/24 07:20
Lab Results
eGFR 18.51 09/10/24 14:45
Albumin 2.1 g/dl (3.5-5.0) L 09/10/24 14:45
Laboratory Tests
09/10/24
14:45
Hgb 11.0 L
Potassium 3.9
Carbon Dioxide 18 L
Creatinine 2.8 H
Calcium 7[address] pelvis without IV contrast 09/10/2024
IMPRESSION:
Left sacral/hip soft tissue ulcers without definite CT evidence for underlying active osteomyelitis. Probable components of chronic osteomyelitis involving the left ischial tuberosity and proximal left femur.
Diffuse rectal wall thickening suggesting proctitis. Large adjacent perirectal abscess as described. Probable associated chronic osteomyelitis of the distal coccygeal segment. Reactive cystitis.
Physical Exam
Patient is awake alert oriented and in no distress. Mood and affect were pleasant, insight and judgment were good. Pupils are equal round and reactive to light, extraocular movements are intact, sclera were anicteric. Hearing was normal, ears and
nose are intact. Oropharynx was clear. Neck was supple with trachea midline and no thyromegaly. Heart was regular rate and rhythm without rubs. Lower extremities without edema. Lungs were clear to auscultation bilaterally and with normal
excursion. Abdomen was soft, nontender, with normal active bowel sounds, and no hepatosplenomegaly. Skin was without rash and with normal turgor. Bandaged ulcers noted hips bilaterally. Bilateral BKA
Data Reviewed
-
CT Scan: Report Reviewed by me
Medical Tests (Nuc Med, Echo etc): Image Personally Visualized and interpreted (EKG 08/25/2024 by my read normal sinus rhythm)
Labs: Labs Reviewed by me
Old Records: Reviewed
Assessment/Plan
-
IMP:
ESRD dialysis since December 2023
Right IJ tunneled dialysis catheter
Bilateral hip wounds
Insulin-dependent diabetes mellitus
Rectal bleed
Ambulatory dysfunction
Hyperlipidemia
GERD
Plan:
Dialysis Wednesday
Dialysis ordered for today
Possible OR today
May need to hold metoprolol if blood pressures remain low
[2024-09-11] MEDS: PLAVIX PO (08:32)
[2024-09-11] MEDS: NOVOLOG FLEXPEN-LOW RESISTANCE SC ×3 (08:32→17:00)
--- NOTE | 2024-09-11 08:44 | CON.ID ---
Consultation
-
Date/Time Consultation Requested: September 10, 2024 1475
Date/Time Consultation Performed: September 11, 2024 9148
Requesting Provider: Dr. Cody Leger
Performing Provider: Dr. Ceci Varner
Reason for Consultation: Bonny-rectal abscess
Chief Complaint / Past History
Chief Complaint
Rectal bleeding and pain
History of Present Illness
64-year-old female with history of diabetes mellitus, end-stage renal disease on hemodialysis, CVA, bilateral BKA, bedbound, chronic left hip/ischium decubitus wound who presented from [facility] to ED on September 10 due to blood on diaper. She was
recently hospitalized from August 16 -August 17 for infected left hip wound which was debrided by surgery at bedside. She was discharged on doxycycline. Per patient the hip wound has been draining more. She developed worsening rectal pain for the past
2 weeks. Complains of blood in stool. She does have history of hemorrhoid. CT pelvis shows chronic osteo of left ischium, + proctitis, large perirectal abscess.
Past History
Additional Past Medical History:
DM2
ESRD on HD via tunelled catheter
HTN
CVA x 5 with left hemiparesis
CAD s/p stents x 2
PAD s/p bilateral BKA
pAfib
asthma
chronic pain syndrome
Hx uterine/vulvar CA s/p hysterectomy/vulvectomy, Chemo, XRT
Appendectomy
Allergy History:
bacitracin (From Neosporin ([id number])) Allergy (Verified 08/25/24 17:41)
Rash/blisters
Cephalosporins Allergy (Verified 08/25/24 17:41)
Anaphylaxis
clindamycin Allergy (Verified 08/25/24 17:41)
Shortness of Breath/rash, wheezing
Fish Containing Products Allergy (Verified 08/25/24 17:41)
Shortness of Breath/wheezing
latex Allergy (Verified 08/25/24 17:41)
Shortness of Breath/rash, itching
morphine Allergy (Verified 08/25/24 17:41)
hallucinations
neomycin (From Neosporin ([id number])) Allergy (Verified 08/25/24 17:41)
Rash/blisters
Penicillins Allergy (Verified 08/25/24 17:41)
Anaphylaxis
polymyxin B (From Neosporin ([id number]-sbrdl)) Allergy (Verified 08/25/24 17:41)
Rash/blisters
shellfish derived Allergy (Verified 08/25/24 17:41)
Shortness of Breath/wheezing
silicone Allergy (Verified 08/25/24 17:41)
Rash/blisters
strawberry Allergy (Verified 08/25/24 17:41)
Itching/wheezing
Medications Reviewed: Yes
Current Antibiotics:
Meropenem 1g IV q24
Social History
Tobacco: Non-Smoker
Alcohol: None
Drug: None
Living: [facility] ([facility])
Family History
Family History: Not Pertinent
Review of Systems
Review of Systems
General: Chills and Change in Appetite; Negative Fever
HEENT: Negative Sinus Problems or Headache
Cardiovascular: Negative Chest Pain or Dyspnea
Respiratory: Negative Dyspnea or Cough
Gasteroenterology: Negative Nausea or Vomiting
Genital / Urological: Negative Dysuria or Flank Pain
Neurological: Negative Dizziness
All systems: All other systems were reviewed and were negative
Vital Signs
Temp Pulse Resp BP Pulse Ox
99.8 F 92 16 97/58 97
09/11/24 07:20 09/11/24 07:20 09/11/24 07:20 09/11/24 07:20 09/11/24 07:20
Physical Exam
Physical Exam
Constitutional: Chronically Ill
Eyes: No Conjunctival Hemorrhage and Sclera Anicteric
Cardiovascular: Regular Rate and S1/S2
Pulmonary: Clear
Gastrointestinal: Soft, Non Tender, Non Distended and Normal Bowel Sounds
Wound: Other (left hip wound; deep with slough and necrosis)
Neurological: AO x 3
Lines: HD Cath (intact)
Lab / Diagnostic Study Results
Abs Immat Gran (auto) 0.0 10^3/uL (0-0.05) 09/10/24 14:45
Absolute Neuts (auto) 6.1 10^3/uL (1.4-6.5) 09/10/24 14:45
Absolute Lymphs (auto) 1.4 10^3/uL (1.2-3.4) 09/10/24 14:45
Absolute Monos (auto) 0.4 10^3/uL (0.1-0.6) 09/10/24 14:45
Absolute Basos (auto) 0.1 10^3/uL (0-0.2) 09/10/24 14:45
Immature Gran % 0.4 % (0-0.5) 09/10/24 14:45
Neutrophils % 76.0 % (42.2-75.2) H 09/10/24 14:45
Lymphocytes % 17.1 % (20.5-51.1) L 09/10/24 14:45
Monocytes % 5.4 % (1.7-9.3) 09/10/24 14:45
Eosinophils % 0.4 % (0-6) 09/10/24 14:45
Basophils % 0.7 % (0-2) 09/10/24 14:45
Microbiology Results
Micro:
09/11/24 03:18 MRSA Screen - Pending
Nose
09/10/24 15:07 Wound Culture - Pending
Abscess Gram Stain - Pending
09/10/24 CT Pelvis: Left sacral/hip soft tissue ulcers without definite CT evidence for underlying active osteomyelitis. Probable components of chronic osteomyelitis involving the left ischial tuberosity and proximal left femur. Diffuse rectal wall
thickening suggesting proctitis. Large adjacent perirectal abscess as described. Probable associated chronic osteomyelitis of the distal coccygeal segment. Reactive cystitis.
Assessment / Plan
# Perirectal abscess
# Acute infection of chronic left ischium decubitus wound
# Chronic osteo of left ischium/coccyx
# Allergy to PCN, cephalosporin, clinda
# ESRD on HD
- Previous 7/ wound cx: ESBL-Ecoli, Proteus, anaerobes
- Agree with meropenem.
- Colorectal eval for drainage of bonny-rectal abscess.
- Surgery eval for left hip wound
# Conditions [employer]
DM2
ESRD on HD via tunelled catheter
HTN
CVA x 5 with left hemiparesis
CAD s/p stents x 2
PAD s/p bilateral BKA
pAfib
asthma
chronic pain syndrome
Hx uterine/vulvar CA s/p hysterectomy/vulvectomy, Chemo, XRT
Appendectomy
[2024-09-11 09:15] LABS: Hematocrit 37.3 % (37.0-47.0); Hemoglobin 11.6 g/dL (12.0-16.0); Mean Corp Hgb Conc. 31.1 g/dL (33.0-37.0); Mean Corpuscular Volume 80.4 fL (81.0-99.0); Platelet Count 171 10^3/uL (130-400); Red Cell Dist. Width 17.5 % (11.5-14.5)
[2024-09-11] MEDS: D5/0.9% SODIUM CHLORIDE 1000 IV (09:20)
--- NOTE | 2024-09-11 10:00 | WOUNDNOTE ---
L [facility] RM. [id number] -TAKEN BY NURSE.
--- NOTE | 2024-09-11 10:00 | WOUNDNOTE ---
WO RN note: Patient admitted with Perirectal abscess/osteomyelitis and renal failure.
See H&P for complete history. Clemencia Che [place].
PMH:
Patient is a 64y F with PMH significant for ESRD on HD, ASCVD, hypertension, DM and chronic wounds who presents to ED for eval of L hip wound / drainage. Patient states that she has had wound on her L hip for approximately 3 months. She has
been receiving local wound care at the nursing facility including occasional bedside debridement.
Wound Location and type/assessment: Patient known to service, last seen 08/16/24 for same L hip and L ischium stage 4 PI. Unable to see, patient is on dialysis. Reviewed pictures via TT of wounds, taken before dialysis today by nurse Anthony. L hip
and ischium with stringy saunders/yellow slough, + foul odor reported, dressings changed by nurse. Spoke with Dr. Solis who may do bedside vs OR debridement of wounds, depending on plan from colorectal. Aware current wound care with saline WTD and
agreed. For surgery to repair rectal abscess this afternoon.
Appetite: Fair, encouraged protein in diet.
Pressure redistribution devices in place: air overlay in use. Would recommend switching bed to air mattress when patient goes to OR. Pillow under calves.
Plan: For L ischium and L hip-Saline moist gauze to dry dressing daily until further orders from Surgical group. Recommend [facility] if not having debridement done. Will confirm orders with hospitalist and updated nurse.
Updated care plan and will follow tomorrow.
Note to case management of equipment requested for discharge: Wound care.
Recommend follow up at wound center.
--- NOTE | 2024-09-11 10:00 | WOUNDNOTE ---
L [facility]IP-[facility] RM. [id number] TAKEN BY NURSE
--- NOTE | 2024-09-11 10:01 | WOUNDNOTE ---
WO RN note: Patient admitted with Perirectal abscess/osteomyelitis and renal failure.
See H&P for complete history. Clemencia Che [place].
PMH:
Patient is a 64y F with PMH significant for ESRD on HD, ASCVD, hypertension, DM and chronic wounds who presents to ED for eval of L hip wound / drainage. Patient states that she has had wound on her L hip for approximately 3 months. She has
been receiving local wound care at the nursing facility including occasional bedside debridement.
Wound Location and type/assessment: Patient known to service, last seen 08/16/24 for same L hip and L ischium stage 4 PI. Unable to see, patient is on dialysis. Reviewed pictures via TT of wounds, taken before dialysis today by nurse Anthony. L hip
and ischium with stringy saunders/yellow slough, + foul odor reported, dressings changed by nurse. Spoke with Dr. Solis who may do bedside vs OR debridement of wounds, depending on plan from colorectal. Aware current wound care with saline WTD and
agreed. For surgery to repair rectal abscess tomorrow.
Appetite: Fair, encouraged protein in diet.
Pressure redistribution devices in place: air overlay in use. Would recommend switching bed to air mattress when patient goes to OR. Pillow under calves.
Plan: For L ischium and L hip-Saline moist gauze to dry dressing daily until further orders from Surgical group. Recommend [facility] if not having debridement done. Will confirm orders with hospitalist and updated nurse.
Updated care plan and will follow tomorrow.
Note to case management of equipment requested for discharge: Wound care.
Recommend follow up at wound center.
[2024-09-11 10:03] LABS: Blood Urea Nitrogen 42 mg/dl (7-17); Calcium 7.4 mg/dl (8.4-10.2); Carbon Dioxide 20 mmol/L (22-30); Chloride 103 mmol/L (98-107); Estimated Creatinine Clearance 16 ml/min; Glucose 62 mg/dl (70-99); Potassium 4.1 mmol/L (3.5-5.1); Sodium 131 mmol/L (135-145); eGFR 15.77
--- NOTE | 2024-09-11 10:17 | CON.CRS ---
Consultation
-
Date/Time Consultation Requested: 09/10/24
Date/Time Consultation Performed: 09/11/24
Performing Provider: Tavo
Reason for Consultation: perirectal abscess
Medical History
-
Chief Complaint: rectal pain
History of Present Illness:
64 yo nonmobile F with multiple medical issues on ASA/Plavix and recent left hip wound debridement by Dr. Abbasi (08/16/24) with increased rectal pain/pressure and bloody output from rectal area. This let to evaluation in the ER where CT showed large
perirectal abscess (new). WBC 7.4 and nontoxic appearing. ?prior history of this issue.
Past Medical History
Past Medical History: Arrhythmias (atrial fibrillation), Asthma, CAD, CVA, HTN, IDDM, Renal Failure (ESRD on HD) and Other (chronic pain; opioid dependence; GERD; obesity; ? clotting disorder; bedbound with L hepiparesis; vulvar cancer; pelvic
radiation; decubiti)
Past Surgical History: Appendectomy, Cholecystectomy, Gynecological (hysterectomy; vulvectomy) and Other (bilateral LE amputations; tunneled HD catheter)
Social History
Tobacco: Non-Smoker
Living: [facility]
Employment: Not Employed
Family History
Family History: Reviewed & Not Pertinent
Allergies / Home Medications
Allergy/AdvReac Type Severity Reaction Status Date / Time
bacitracin (From Neosporin Allergy Rash/bliste Verified 08/25/24 17:41
([id number])) rs
Cephalosporins Allergy Anaphylaxis Verified 08/25/24 17:41
clindamycin Allergy Shortness Verified 08/25/24 17:41
of
Breath/rash,
wheezing
Fish Containing Products Allergy Shortness Verified 08/25/24 17:41
of
Breath/wheezing
latex Allergy Shortness Verified 08/25/24 17:41
of
Breath/rash,
itching
morphine Allergy hallucinati Verified 08/25/24 17:41
ons
neomycin (From Neosporin Allergy Rash/bliste Verified 08/25/24 17:41
([id number])) rs
Penicillins Allergy Anaphylaxis Verified 08/25/24 17:41
polymyxin B (From Neosporin Allergy Rash/bliste Verified 08/25/24 17:41
([id number])) rs
shellfish derived Allergy Shortness Verified 08/25/24 17:41
of
Breath/wheezing
silicone Allergy Rash/bliste Verified 08/25/24 17:41
rs
strawberry Allergy Itching/whe Verified 08/25/24 17:41
ezing
�Medication �Instructions �Recorded �Confirmed �Type
acetaminophen 325 mg tablet 650 mg PO Q4HPRN PRN mild 07/08/24 09/10/24 History
(Tylenol) pain/fever
albuterol sulfate 90 mcg/actuation 2 puff inhalation R Q6HPRN PRN SOB 07/08/24 09/10/24 History
aerosol inhaler
amiodarone 200 mg tablet 200 mg PO DAILY Heart 07/08/24 09/10/24 History
Disease/Condition
atorvastatin 80 mg tablet (Lipitor) 80 mg PO HS High Cholesterol 07/08/24 09/10/24 History
clopidogrel 75 mg tablet (Plavix) 75 mg PO DAILY Blood Clot 07/08/24 09/10/24 History
Prevention/Tx
docusate sodium 100 mg capsule 100 mg PO BID Gastrointestinal 07/08/24 09/10/24 History
(Colace) Issue
gabapentin 300 mg capsule 300 mg PO DAILY Neurological 07/08/24 09/10/24 History
Condition
insulin glargine 100 unit/mL (3 7 unit SC HS Diabetes 07/08/24 09/10/24 History
mL) subcutaneous pen (Lantus
Solostar U-100 Insulin)
lactulose 10 gram/15 mL oral 30 ml PO BIDPRN PRN CONSTIPATION 07/08/24 09/10/24 History
solution
loperamide 2 mg tablet 2 mg PO DAILYPRN PRN DIARRHEA 07/08/24 09/10/24 History
metoprolol succinate 25 mg 12.5 mg PO DAILY Blood Pressure 07/08/24 09/10/24 History
tablet,extended release 24 hr
(Toprol XL)
montelukast 10 mg tablet 10 mg PO HS Allergies 07/08/24 09/10/24 History
(Singulair)
nystatin 100,000 unit/gram topical 1 applic topical TID 07/08/24 09/10/24 History
cream
ondansetron HCl 4 mg tablet 4 mg PO Q8HPRN PRN NAUSEA 07/08/24 09/10/24 History
pantoprazole 40 mg tablet,delayed 40 mg PO DAILY Gastrointestinal 07/08/24 09/10/24 History
release (Protonix) Issue
polyethylene glycol 3350 17 gram 17 g PO DAILY Gastrointestinal 07/08/24 09/10/24 History
oral powder packet (Miralax) Issue
sennosides 8.6 mg tablet (senna) 17.2 mg PO BID Gastrointestinal 07/08/24 09/10/24 History
Issue
simethicone 125 mg chewable tablet 125 mg PO Q6HPRN PRN GAS PAINS 07/08/24 09/10/24 History
(Gas-X Extra Strength)
diclofenac sodium 1 % topical gel 4 g topical BID Pain 08/16/24 09/10/24 History
fentanyl 12 mcg/hr transdermal 1 patch transdermal Q72H Pain #5 ea 08/17/24 09/10/24 Rx
patch
aspirin 81 mg chewable tablet 81 mg PO DAILY Blood Clot 09/10/24 09/10/24 History
Prevention/Tx
capsaicin 0.075 % topical cream 1 applic topical BID Pain 09/10/24 09/10/24 History
glucagon HCl 1 mg solution for 1 mg IM [id number] PRN symptomatic 09/10/24 09/10/24 History
injection (Glucagon (HCl) hypoglycemia
Emergency Kit)
phenylephrine 0.25 %-pramoxine 1 1 applic [place] DAILYPRN PRN rectal 09/10/24 09/10/24 History
%-glycerin-wh.petrolatum rectal pain after BM
cream (Preparation H Maximum
Strength)
phenylephrine 0.25 %-pramoxine 1 1 applic [place] HS 09/10/24 09/10/24 History
%-glycerin-wh.petrolatum rectal
cream (Preparation H Maximum
Strength)
promethazine 25 mg tablet 25 mg PO Q6HPRN PRN nausea 09/10/24 09/10/24 History
sulfamethoxazole 400 1 tab PO HS Infection 09/10/24 09/10/24 History
mg-trimethoprim 80 mg tablet
(Bactrim)
tramadol 50 mg tablet 50 mg PO Q8H PRN moderate pain 09/10/24 09/10/24 History
venlafaxine 37.5 mg tablet 37.5 mg PO DAILY Mental 09/10/24 09/10/24 History
Health/Anxiety
Review of Systems
-
A 10 point review of systems was completed, and was negative except as per HPI.
Physical Exam
Vital Signs
Temp 99.8 F 09/11/24 07:20
Pulse 92 09/11/24 07:20
Resp Rate 16 09/11/24 07:20
Blood pressure 97/58 09/11/24 07:20
SaO2 97 09/11/24 07:20
09/10/24 09/11/24 09/12/24
06:59 06:59 06:59
Actual Weight 71.2 kg
Lab Results / Allergies
09/11/24 08:36
09/11/24 08:36
WBC 7.4 10^3/uL (4.8-10.8) 09/11/24 08:36
Hgb 11.6 g/dL (12.0-16.0) L 09/11/24 08:36
Hct 37.3 % (37.0-47.0) 09/11/24 08:36
Plt Count 171 10^3/uL (130-400) 09/11/24 08:36
Abs Immat Gran (auto) 0.0 10^3/uL (0-0.05) 09/10/24 14:45
Neutrophils % 76.0 % (42.2-75.2) H 09/10/24 14:45
Allergy/AdvReac Type Severity Reaction Status Date / Time
bacitracin (From Neosporin Allergy Rash/bliste Verified 08/25/24 17:41
([id number])) rs
Cephalosporins Allergy Anaphylaxis Verified 08/25/24 17:41
clindamycin Allergy Shortness Verified 08/25/24 17:41
of
Breath/rash,
wheezing
Fish Containing Products Allergy Shortness Verified 08/25/24 17:41
of
Breath/wheezing
latex Allergy Shortness Verified 08/25/24 17:41
of
Breath/rash,
itching
morphine Allergy hallucinati Verified 08/25/24 17:41
ons
neomycin (From Neosporin Allergy Rash/bliste Verified 08/25/24 17:41
([id number])) rs
Penicillins Allergy Anaphylaxis Verified 08/25/24 17:41
polymyxin B (From Neosporin Allergy Rash/bliste Verified 08/25/24 17:41
([id number])) rs
shellfish derived Allergy Shortness Verified 08/25/24 17:41
of
Breath/wheezing
silicone Allergy Rash/bliste Verified 08/25/24 17:41
rs
strawberry Allergy Itching/whe Verified 08/25/24 17:41
ezing
Physical Exam
General: Other (chronically ill; bed-bound)
HEENT: Normocephalic
Respiratory: Clear
Cardiac: Irregular Rhythm
GI: Soft, Non Tender and Non Distended
Rectal: Other (chronic induration of perianal skin--no obvious fluctuance)
Musculoskeletal: Other (left hip decubitus with exudate and no skin erythema)
Psych: Calm and Other (oriented)
Assessment / Plan
-
64 yo nonmobile amputee on ASA/Plavix (last dose of Plavix yesterday) with multiple medical issues with perirectal abscess as well as chronic decubiti. Not in extremis. Discussed situation with patient and Dr. Lockhart of nephrology. Would continue to
hold Plavix. Hemodialysis today. Plan tentativley for OR tomorrow for I and D of perirectal abscess by Dr. Cox, who will be available. Risks and benefits reviewed and all questions answered.
[2024-09-11] MEDS: MANNITOL 25% 12.5 GRAMS IV ×2 (10:20→11:52)
[2024-09-11] MEDS: FLEXBUMIN 25% FOR HEMODIALYSIS 12.5 GRAMS IV ×2 (10:30→11:51)
--- NOTE | 2024-09-11 10:41 | CM ---
Reviewed the chart notes. Patient seen receiving HD today. CM continues to be available to patient/family and is monitoring medical plan for needs at discharge.
Plan: Discharge back to [facility] when medically stable.
[2024-09-11 11:12] VITALS: BMI 26.1
[2024-09-11 11:41] LABS: Glucose - Point of Care 70 mg/dl (70-99)
--- NOTE | 2024-09-11 12:10 | W.PN.NEPH.HD ---
Assessment
-
Seen on HD. no new complaints. VSS, BP low on treatment. IVF running. Access ok
Progress Note - Hemodialysis
-
Date of Service: September 11, 2024
Duration: 30 minutes and 3 hours
Potassium Bath: 2
Calcium Bath: 2.5
Opti-Dialyzer: 160
Ultrafiltration: Other (none)
Blood Flow: 350
Dialysate Flow: 600
Heparin: no
EPO: 0
--- NOTE | 2024-09-11 12:15 | W.PN.HOSP.TC ---
Today's Communication/Plan
-
Monitor vitals
See plan
Plan for OR tomorrow by colorectal
N.p.o. past midnight
Continue to hold Plavix
HD today per nephrology
Continue with meropenem
Assessment / Plan
Assessment / Plan
General: Comfortable and Conversant
HEENT: Anicteric and Moist mucous membranes
Respiratory: Clear and Non Labored Respirations
Cardiac: S1/S2 and Regular Rhythm
GI: Soft and Tender (Mild tendernes to palpation in suprapubic region)
Rectal: Other (Bloody foul drainage from the rachel-rectal)
Skin: Warm, Dry and Rash (Intertrigo / Candidiasis of bilateral breasts)
Neuro: Awake, Alert and Oriented
Perirectal Abscess
- Colorectal surgery following, plan for OR tomorrow
-Continue Meropenem
Continue to hold Plavix
ID consulted
Infected Left Hip and Ischial Wounds
-Consult General Surgery for possible debridement
-Continue Wound Care
-Prior culture with Proteus and ESBL E.coli
-Patient given vancomycin in ED - Check MRSA screen
-Continue meropenem
Hyponatremia
Monitor
Intertrigo / Candidiasis of Bilateral Breast Folds
-Continue miconazole powder
ESRD on HD
- Nephrology following, HD per nephrology
ASCVD
-Hold Plavix for OR
-Continue aspirin
Diabetes Mellitus, Type II
-Glucose 67 on ED labs
-Hold Lantus
-Monitor sugars and continue coverage insulin
Paroxysmal Atrial Fibrillation
-Continue Metoprolol and Amiodarone
Essential Hypertension
-Continue Metoprolol
Hyperlipidemia
-Continue Lipitor
Chronic Pain with Opioid Dependence
-Continue fentanyl patch
DVT proph: SC Heparin
Code Status: DNR per patient at time of admission
I spent a total of 52 minutes with the patient or on the floor. More than 50% of this time involved counseling and coordination of care.
Anticipated Discharge: > 48 hours
Subjective/Interval History
-
Date of Service: September 11, 2024
denies nausea
Objective Data
-
Labs:
Laboratory Results
09/11/24
08:36
WBC 7.4
Hgb 11.6 L
Hct 37.3
Plt Count 171
Sodium 131 L
Potassium 4.1
Chloride 103
Carbon Dioxide 20 L
BUN 42 H
Creatinine 3.2 H
Glucose 62 L
Calcium 7.4 L
Vital Signs:
Vital Signs
Temp Pulse Resp BP Pulse Ox
99.8 F 92 16 97/58 97
09/11/24 07:20 09/11/24 07:20 09/11/24 07:20 09/11/24 07:20 09/11/24 07:20
I&O
09/10/24 09/11/24 09/12/24
06:59 06:59 06:59
Intake Total 340 / 340
Balance 340 / 340
--- NOTE | 2024-09-11 13:03 | WOUNDNOTE ---
L HIP OF MRS SMITA 213-TAKEN BY NURSE
--- NOTE | 2024-09-11 13:04 | WOUNDNOTE ---
L ISCHIUM OF MRS SM[facility] 213-TAKEN BY NURSE
[2024-09-11] MEDS: HEPARIN 3600 UNITS INTRACATH (13:32)
[2024-09-11] MEDS: TOPROL XL 12.5 MG PO (14:17)
[2024-09-11] MEDS: PROTONIX 40 MG PO (14:17)
[2024-09-11] MEDS: DESENEX/MITRAZOL/ZEASORB 1 APPLIC TOPICAL ×2 (14:17→20:05)
[2024-09-11] MEDS: EFFEXOR 37.5 MG PO (14:18)
[2024-09-11] MEDS: HEPARIN 5000 UNITS SC ×2 (14:18→20:02)
[2024-09-11] MEDS: PACERONE 200 MG PO (14:18)
[2024-09-11] MEDS: LOW STRENGTH ASPIRIN 81 MG PO (14:18)
[2024-09-11] MEDS: NEURONTIN 300 MG PO (14:35)
--- NOTE | 2024-09-11 14:43 | WOUNDNOTE ---
R POSTERIOR THIGH DISTAL BUTTOCK
--- NOTE | 2024-09-11 14:44 | WOUNDNOTE ---
R BREAST AND FLANK
--- NOTE | 2024-09-11 14:45 | CON.GS ---
Medical History
-
Chief Complaint: Rectal pain and bleeding
History of Present Illness:
Patient is a 64 yo F with a PMH of multiple medical issues including HTN, HLD, CAD, A-fib, CVA (on ASA and Plavix), ESRD (on HD), PVD s/p bilateral BKA, chronic pain, bedbound with hemiparesis, s/p appendectomy, s/p cholecystectomy, s/p hysterectomy
embolectomy with pelvic XRT. Ms. Abdalla presents with rectal pain/pressure as well as bright red blood per rectum. CT scan was notable for a large perirectal abscess. She has been evaluated by the colorectal surgeons. She has multiple other
wounds of the lower extremities and sacrum for which general surgery has been consulted. The left lower extremity wound is chronic and has been previously debrided by Dr. Abbasi back on 08/16. Her right lower extremity wound is new. She denies any
specific pain as a relates to these wounds.
Past Medical History
Past Medical History: CAD, CVA, HTN, Hypercholesterolemia, Renal Failure and Other (PVD, chronic pain)
Past Surgical History: Appendectomy, Cholecystectomy, Gynecological (Hysterectomy and vulvectomy) and Other (Bilateral BKA)
Social History
Tobacco: Non-Smoker
Alcohol: None
Drug: None
Allergies / Home Medications
Allergy/AdvReac Type Severity Reaction Status Date / Time
bacitracin (From Neosporin Allergy Rash/bliste Verified 08/25/24 17:41
([id number])) rs
Cephalosporins Allergy Anaphylaxis Verified 08/25/24 17:41
clindamycin Allergy Shortness Verified 08/25/24 17:41
of
Breath/rash,
wheezing
Fish Containing Products Allergy Shortness Verified 08/25/24 17:41
of
Breath/wheezing
latex Allergy Shortness Verified 08/25/24 17:41
of
Breath/rash,
itching
morphine Allergy hallucinati Verified 08/25/24 17:41
ons
neomycin (From Neosporin Allergy Rash/bliste Verified 08/25/24 17:41
([id number])) rs
Penicillins Allergy Anaphylaxis Verified 08/25/24 17:41
polymyxin B (From Neosporin Allergy Rash/bliste Verified 08/25/24 17:41
([id number])) rs
shellfish derived Allergy Shortness Verified 08/25/24 17:41
of
Breath/wheezing
silicone Allergy Rash/bliste Verified 08/25/24 17:41
rs
strawberry Allergy Itching/whe Verified 08/25/24 17:41
ezing
�Medication �Instructions �Recorded �Confirmed �Type
acetaminophen 325 mg tablet 650 mg PO Q4HPRN PRN mild 07/08/24 09/10/24 History
(Tylenol) pain/fever
albuterol sulfate 90 mcg/actuation 2 puff inhalation R Q6HPRN PRN SOB 07/08/24 09/10/24 History
aerosol inhaler
amiodarone 200 mg tablet 200 mg PO DAILY Heart 07/08/24 09/10/24 History
Disease/Condition
atorvastatin 80 mg tablet (Lipitor) 80 mg PO HS High Cholesterol 07/08/24 09/10/24 History
clopidogrel 75 mg tablet (Plavix) 75 mg PO DAILY Blood Clot 07/08/24 09/10/24 History
Prevention/Tx
docusate sodium 100 mg capsule 100 mg PO BID Gastrointestinal 07/08/24 09/10/24 History
(Colace) Issue
gabapentin 300 mg capsule 300 mg PO DAILY Neurological 07/08/24 09/10/24 History
Condition
insulin glargine 100 unit/mL (3 7 unit SC HS Diabetes 07/08/24 09/10/24 History
mL) subcutaneous pen (Lantus
Solostar U-100 Insulin)
lactulose 10 gram/15 mL oral 30 ml PO BIDPRN PRN CONSTIPATION 07/08/24 09/10/24 History
solution
loperamide 2 mg tablet 2 mg PO DAILYPRN PRN DIARRHEA 07/08/24 09/10/24 History
metoprolol succinate 25 mg 12.5 mg PO DAILY Blood Pressure 07/08/24 09/10/24 History
tablet,extended release 24 hr
(Toprol XL)
montelukast 10 mg tablet 10 mg PO HS Allergies 07/08/24 09/10/24 History
(Singulair)
nystatin 100,000 unit/gram topical 1 applic topical TID 07/08/24 09/10/24 History
cream
ondansetron HCl 4 mg tablet 4 mg PO Q8HPRN PRN NAUSEA 07/08/24 09/10/24 History
pantoprazole 40 mg tablet,delayed 40 mg PO DAILY Gastrointestinal 07/08/24 09/10/24 History
release (Protonix) Issue
polyethylene glycol 3350 17 gram 17 g PO DAILY Gastrointestinal 07/08/24 09/10/24 History
oral powder packet (Miralax) Issue
sennosides 8.6 mg tablet (senna) 17.2 mg PO BID Gastrointestinal 07/08/24 09/10/24 History
Issue
simethicone 125 mg chewable tablet 125 mg PO Q6HPRN PRN GAS PAINS 07/08/24 09/10/24 History
(Gas-X Extra Strength)
diclofenac sodium 1 % topical gel 4 g topical BID Pain 08/16/24 09/10/24 History
fentanyl 12 mcg/hr transdermal 1 patch transdermal Q72H Pain #5 ea 08/17/24 09/10/24 Rx
patch
aspirin 81 mg chewable tablet 81 mg PO DAILY Blood Clot 09/10/24 09/10/24 History
Prevention/Tx
capsaicin 0.075 % topical cream 1 applic topical BID Pain 09/10/24 09/10/24 History
glucagon HCl 1 mg solution for 1 mg IM [id number] PRN symptomatic 09/10/24 09/10/24 History
injection (Glucagon (HCl) hypoglycemia
Emergency Kit)
phenylephrine 0.25 %-pramoxine 1 1 applic [place] DAILYPRN PRN rectal 09/10/24 09/10/24 History
%-glycerin-wh.petrolatum rectal pain after BM
cream (Preparation H Maximum
Strength)
phenylephrine 0.25 %-pramoxine 1 1 applic [place] HS 09/10/24 09/10/24 History
%-glycerin-wh.petrolatum rectal
cream (Preparation H Maximum
Strength)
promethazine 25 mg tablet 25 mg PO Q6HPRN PRN nausea 09/10/24 09/10/24 History
sulfamethoxazole 400 1 tab PO HS Infection 09/10/24 09/10/24 History
mg-trimethoprim 80 mg tablet
(Bactrim)
tramadol 50 mg tablet 50 mg PO Q8H PRN moderate pain 09/10/24 09/10/24 History
venlafaxine 37.5 mg tablet 37.5 mg PO DAILY Mental 09/10/24 09/10/24 History
Health/Anxiety
Review of Systems
-
A 10 point review of systems was completed, and was negative except as per HPI.
Physical Exam
Vital Signs
Temp Pulse Resp BP Pulse Ox
99.8 F 89 16 120/84 97
09/11/24 07:20 09/11/24 14:17 09/11/24 07:20 09/11/24 14:17 09/11/24 08:33
09/10/24 09/11/24 09/12/24
06:59 06:59 06:59
Actual Weight 71.2 kg
Lab Results
09/11/24 08:36
09/11/24 08:36
WBC 7.4 10^3/uL (4.8-10.8) 09/11/24 08:36
Hgb 11.6 g/dL (12.0-16.0) L 09/11/24 08:36
Hct 37.3 % (37.0-47.0) 09/11/24 08:36
Plt Count 171 10^3/uL (130-400) 09/11/24 08:36
Abs Immat Gran (auto) 0.0 10^3/uL (0-0.05) 09/10/24 14:45
Neutrophils % 76.0 % (42.2-75.2) H 09/10/24 14:45
Physical Exam
General: Well Developed, Well Nourished and No Apparent Distress
Respiratory: Non Labored Respirations
Cardiac: Irregular Rhythm
GI: Soft, Non Tender and Non Distended
Musculoskeletal: Other (All wounds just recently changes, bilateral lower extremity wounds clean dry and intact, coccygeal dressing clean dry intact, imaging from wound care was reviewed)
Skin: Warm and Dry
Data Reviewed
-
CT Scan: Image Personally Visualized and interpreted and Report Reviewed by me
Labs: Labs Reviewed by me
Old Records: Reviewed
Assessment / Plan
-
Patient is a 64 yo F p/w perirectal abscess
Chronic bilateral LE and coccygeal pressure wounds. The natural history and pathophysiology was reviewed. We reviewed the options of surgical treatment versus medical management with wound care alone for these chronic wounds. Colorectal Surgery
consult noted. Plan for incision and drainage of a perirectal abscess in the OR tomorrow. General surgery available for evaluation of her lower extremity and coccygeal wounds. We discussed that she may need further debridement of these wounds.
We discussed the risks of persistent/recurrent wounds and infections given her general medical condition. The procedure itself, as well as the risks, benefits, and alternatives was reviewed. All questions answered. Consent signed.
-- General surgery available for evaluation of her lower extremity and coccygeal wounds
-- Continue with local wound care in the interim
-- Abx: Meropenem
-- Plavix on hold, currently on ASA and SQ Hep
--- NOTE | 2024-09-11 14:46 | WOUNDNOTE ---
R BUTTOCK AND POSTERIOR THIGH
--- NOTE | 2024-09-11 14:48 | WOUNDNOTE ---
YODIT RN NOTE: Followed up with assist of nurse Anthony. Patient had large liquid BM, skin care given and pad changed. Besides L hip and Ischium patient also has an unstageable PI vs DTI on R hip, boggy in center dark maroon and saunders. R posterior thigh
and distal buttock with dark maroon linear lines, dry not open. Patient reports she uses a brief at [place], suspect was too tight causing lines. R lateral breast and flank/distal to breast with scattered dark maroon patches of skin. Doubt pressure
ulcers since they are not over bony prominences. Patient states she does not know how she got them, denies scratching. Sacrum is intact, barrier cream in use. Medial thighs with fungal rash, Desitin applied. B/L stumps intact no ulcers. Called bed
tech for an air mattress, [employer]rella max air or [facility] air bed. Nurse Anthony made aware and will switch bed when available. Patient is NPO tonight for surgery tomorrow. Will follow peripherally and update wound care as needed.
[2024-09-11 15:10] VITALS: BP 120/64
--- NOTE | 2024-09-11 16:09 | PTCARENOTE ---
BP this AM was 97/58, made aware. BP up to 120/64 now. No new orders at this time.
[2024-09-11 16:44] LABS: Glucose - Point of Care 64 mg/dl (70-99)
[2024-09-11 17:03] LABS: Glucose - Point of Care 54 mg/dl (70-99)
[2024-09-11 17:17] LABS: Hepatitis B Surface Antigen Negative (Negative)
[2024-09-11] MEDS: DEXTROSE 50% SYRINGE 12.5 GRAMS IV (17:20)
[2024-09-11 17:37] LABS: Glucose - Point of Care 137 mg/dl (70-99)
[2024-09-11 20:05] LABS: Glucose - Point of Care 115 mg/dl (70-99)
[2024-09-11] MEDS: MERREM 1000 MG IV (20:48)
[2024-09-11] MEDS: STERILE WATER FOR INJECTION 20 ML IV (20:48)
[2024-09-11] MEDS: LIPITOR 80 MG PO (20:55)
[2024-09-11] MEDS: SINGULAIR 10 MG PO (20:55)
[2024-09-11] MEDS: ULTRAM 50 MG PO (21:16)
[2024-09-11 22:14] LABS: Glucose - Point of Care 108 mg/dl (70-99)
[2024-09-11 23:19] VITALS: BP 102/54
[2024-09-12] VITALS (13 sets, daily range): BP systolic 82–111; BP diastolic 52–62
[2024-09-12] MEDS: D5/0.9% SODIUM CHLORIDE 1000 IV ×3 (00:38→23:24)
[2024-09-12 03:01] LABS: Glucose - Point of Care 101 mg/dl (70-99)
[2024-09-12] MEDS: TYLENOL 650 MG PO (05:45)
[2024-09-12 07:59] LABS: ALT (SGPT) 13 U/L (0-35); AST (SGOT) 18 U/L (14-36); Albumin 2.0 g/dl (3.5-5.0); Alkaline Phosphatase 86 U/L (38-126); Blood Urea Nitrogen 16 mg/dl (7-17); Calcium 7.1 mg/dl (8.4-10.2); Carbon Dioxide 23 mmol/L (22-30); Chloride 108 mmol/L (98-107); Estimated Creatinine Clearance 29 ml/min; Glucose 98 mg/dl (70-99); Potassium 3.3 mmol/L (3.5-5.1); Sodium 136 mmol/L (135-145); Total Protein 5.3 g/dl (6.3-8.2); eGFR 31.46
[2024-09-12 08:00] LABS: Glucose - Point of Care 106 mg/dl (70-99)
[2024-09-12 08:09] LABS: Hematocrit 29.9 % (37.0-47.0); Hemoglobin 9.3 g/dL (12.0-16.0); Mean Corp Hgb Conc. 31.1 g/dL (33.0-37.0); Mean Corpuscular Volume 81.5 fL (81.0-99.0); Nucleated Red Blood Cells % 0 %; Red Cell Dist. Width 17.4 % (11.5-14.5)
[2024-09-12] MEDS: NOVOLOG FLEXPEN-LOW RESISTANCE SC ×3 (08:30→18:06)
[2024-09-12] MEDS: DESENEX/MITRAZOL/ZEASORB TOPICAL (08:50)
[2024-09-12 09:31] LABS: Platelet Count 132 10^3/uL (130-400)
[2024-09-12] MEDS: PROTONIX 40 MG PO (09:31)
[2024-09-12] MEDS: EFFEXOR 37.5 MG PO (09:31)
[2024-09-12] MEDS: NEURONTIN 300 MG PO (09:31)
[2024-09-12] MEDS: PACERONE 200 MG PO (09:32)
[2024-09-12] MEDS: HEPARIN 5000 UNITS SC ×2 (09:33→21:04)
[2024-09-12] MEDS: TOPROL XL 12.5 MG PO (09:33)
[2024-09-12] MEDS: LOW STRENGTH ASPIRIN 81 MG PO (09:34)
--- NOTE | 2024-09-12 10:08 | CM ---
Reviewed the chart notes and spoke with the patient at the beside. The patient anticipates going to the OR today for incision and drainage of a perirectal abscess. CM continues to be available to patient/family and is monitoring medical plan for
needs at discharge.
Plan: Discharge back to [facility] when medically stable.
[2024-09-12] MEDS: ULTRAM 50 MG PO (11:19)
--- NOTE | 2024-09-12 11:31 | PN.CDI ---
CDI
- -
CDI:
Physician Documentation Request
Admit Date: 09/10/24 18:22
Dear Doctor Arsen,
Please review the following and provide your response in the progress notes.
Clinical Indicators:
- 09/10 ER Physician 'Family however notes a change in mental status. She seems confused which is unusual for her'
- 09/10 H&P 'change in mental status'
- 09/11 PN 'Perirectal abscess...Infected Left Hip and Ischial Wounds'
- 'Neuro: Awake, Alert and Oriented'
Please clarify in the Progress Notes and Discharge Summary which, if any of the following, is the most likely etiology of the confusion/altered mental status.
Metabolic encephalopathy due to perirectal abscess and infected wounds
Acute Delirium - indicate known or suspected etiology such as postoperative, due to opioids or other drugs etc. Can also indicate unknown or mixed etiologies.
Acute or subacute confusional state due to (specify known or suspected etiology)
Other (please specify)
Use of terms such as suspected, likely, concern for, or probable (associated with a specific diagnosis that is being evaluated, monitored, or treated as if it exists) are acceptable and can be coded in the inpatient setting, when documented at the
time of discharge.
Thank you,
Georgia Carpio RN
CDI Specialist
Please use your independent medical judgment in providing your response.
--- NOTE | 2024-09-12 11:37 | W.PN.HOSP.TC ---
Today's Communication/Plan
-
Monitor vital signs and see plan
HD tomorrow per nephrology
Plan for OR today
Continue with antibiotics
Follow cultures
Assessment / Plan
Assessment / Plan
General: Comfortable and Conversant
HEENT: Anicteric and Moist mucous membranes
Respiratory: Clear and Non Labored Respirations
Cardiac: S1/S2 and Regular Rhythm
GI: Soft and Tender (Mild tendernes to palpation in suprapubic region)
Rectal: Other (Bloody foul drainage from the rachel-rectal)
Skin: Warm, Dry and Rash (Intertrigo / Candidiasis of bilateral breasts)
Neuro: Awake, Alert and Oriented
Perirectal Abscess
- Colorectal surgery following, plan for OR 09/12
Continue to hold Plavix
ID following
Infected Left Hip and Ischial Wounds
-General Surgery following for possible debridement
-Continue Wound Care
-Prior culture with Proteus and ESBL E.coli
-Continue meropenem
Suspect toxic metabolic encephalopathy likely multifactorial secondary to perirectal abscess and infected left hip and ischial wounds along with ESRD on hemodialysis
improving
Hyponatremia
Monitor
Hypokalemia
Managed with dialysis
Monitor
Intertrigo / Candidiasis of Bilateral Breast Folds
-Continue miconazole powder
ESRD on HD
- Nephrology following, HD per nephrology
ASCVD
-Hold Plavix for OR
-Continue aspirin
Diabetes Mellitus, Type II
periods of hypoglycemia; currently NPO for OR; on d5
-Hold Lantus
-Monitor sugars and continue coverage insulin
Paroxysmal Atrial Fibrillation
-Continue Metoprolol and Amiodarone
Essential Hypertension
-Continue Metoprolol
Hyperlipidemia
-Continue Lipitor
Chronic Pain with Opioid Dependence
-Continue fentanyl patch
DVT proph: SC Heparin
Code Status: DNR per patient at time of admission
I spent a total of 52 minutes with the patient or on the floor. More than 50% of this time involved counseling and coordination of care.
Anticipated Discharge: > 48 hours
Subjective/Interval History
-
Date of Service: September 12, 2024
denies nausea
Objective Data
-
Labs:
Laboratory Results
09/12/24
06:24
WBC 5.9
Hgb 9.3 L
Hct 29.9 L
Plt Count 132 D
Sodium 136
Potassium 3.3 L
Chloride 108 H
Carbon Dioxide 23
BUN 16
Creatinine 1.8 H
Glucose 98
Calcium 7.1 L
Total Bilirubin 0.5
AST 18
ALT 13
Alkaline Phosphatase 86
Vital Signs:
Vital Signs
Temp Pulse Resp BP Pulse Ox
97.9 F 76 20 100/57 97
09/12/24 07:00 09/12/24 09:32 09/12/24 07:00 09/12/24 09:32 09/12/24 09:48
I&O
09/11/24 09/12/24 09/13/24
06:59 06:59 06:59
Intake Total 340 / 340 1680 / 1680
Balance 340 / 340 1680 / 1680
[2024-09-12 11:47] LABS: Glucose - Point of Care 96 mg/dl (70-99)
--- NOTE | 2024-09-12 12:23 | W.PN.NEPH.PH ---
Today's Communication / Plan
-
HD tomorrow
Assessment/Plan
-
IMP:
ESRD dialysis since December 2023
Right IJ tunneled dialysis catheter
Bilateral hip wounds
Insulin-dependent diabetes mellitus
Rectal bleed
Ambulatory dysfunction
Hyperlipidemia
GERD
Plan:
Dialysis Wednesday
Dialysis ordered for tomorrow
for OR today
May need to hold metoprolol if blood pressures remain low
-
-
Date of Service: September 12, 2024
CC / HPI / ROS
-
Chief Complaint:
ESRD
History of Present Illness:
tolerated HD yesterday
BP stable low
K low today
Review of Systems:
no CP/SOB
pain from ulcers
Labs
-
Labs:
WBC 5.9 10^3/uL (4.8-10.8) 09/12/24 06:24
RBC 3.67 10^6/uL (4.20-5.40) L 09/12/24 06:24
Hgb 9.3 g/dL (12.0-16.0) L 09/12/24 06:24
Hct 29.9 % (37.0-47.0) L 09/12/24 06:24
Plt Count 132 10^3/uL (130-400) D 09/12/24 06:24
Sodium 136 mmol/L (135-145) 09/12/24 06:24
Potassium 3.3 mmol/L (3.5-5.1) L 09/12/24 06:24
Chloride 108 mmol/L (98-107) H 09/12/24 06:24
Carbon Dioxide 23 mmol/L (22-30) 09/12/24 06:24
BUN 16 mg/dl (7-17) 09/12/24 06:24
Creatinine 1.8 mg/dL (0.6-1.0) H 09/12/24 06:24
eGFR 31.46 09/12/24 06:24
Glucose 98 mg/dl (70-99) 09/12/24 06:24
Calcium 7.1 mg/dl (8.4-10.2) L 09/12/24 06:24
Albumin 2.0 g/dl (3.5-5.0) L 09/12/24 06:24
Physical Exam
-
Vital Signs:
Vital Signs
Temp Pulse Resp BP Pulse Ox
97.9 F 76 20 100/57 97
09/12/24 07:00 09/12/24 09:32 09/12/24 07:00 09/12/24 09:32 09/12/24 09:48
Cardiovascular:: Regular rate and rhythm
Respiratory:: Bilateral: Coarse
Lung Excursion:: Normal
Abdomen:: Nontender and Soft
Bowel Sounds:: Normal
Extremity Edema:: None: Bilateral:
--- NOTE | 2024-09-12 13:26 | W.PN.ID1 ---
Date of Service
Date of Service: September 12, 2024
Today's Communication
Continue meropenem.
Assessment / Plan
# Perirectal abscess
# Acute infection of chronic left ischium decubitus wound
# Chronic osteo of left ischium/coccyx
# Allergy to PCN, cephalosporin, clinda
# ESRD on HD
- Previous 7/ wound cx: ESBL-Ecoli, Proteus, anaerobes
- Continue meropenem d3
- Colorectal plans to drain rachel-rectal abscess.
- Surgery following hip/ischium wounds.
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
DM2
ESRD on HD via tunelled catheter
HTN
CVA x 5 with left hemiparesis
CAD s/p stents x 2
PAD s/p bilateral BKA
pAfib
asthma
chronic pain syndrome
Hx uterine/vulvar CA s/p hysterectomy/vulvectomy, Chemo, XRT
Appendectomy
Chief Complaint
-: Other (Rachel-rectal abscess)
Subjective / Review of Systems
feels same
Vital Signs / Physical Exam
Vital Signs
Vital Signs
Temp Pulse Resp BP Pulse Ox
97.9 F 76 20 100/57 97
09/12/24 07:00 09/12/24 09:32 09/12/24 07:00 09/12/24 09:32 09/12/24 09:48
Physical Exam
Constitutional: Chronically Ill
Cardiovascular: Regular Rate and S1/S2
Pulmonary: Clear
Gastrointestinal: Soft, Non Tender and Non Distended
Wound: Other (Left hip deep wound with saunders slough; left ischium deep wound with pale yellow exudate)
Neurological: AO x 3
Lines: HD Cath (RCW intact)
Objective Data
Lab Data
Lab Results
09/12/24 06:24
09/12/24 06:24
Estimated Creat Clear 29 ml/min 09/12/24 06:24
Total Bilirubin 0.5 mg/dl (0.2-1.3) 09/12/24 06:24
AST 18 U/L (14-36) 09/12/24 06:24
ALT 13 U/L (0-35) 09/12/24 06:24
Alkaline Phosphatase 86 U/L (38-126) 09/12/24 06:24
Most recent labs reviewed.
Micro Results:
09/10/24 15:07 Wound Culture - Preliminary
Abscess Proteus species
Gram negative bacilli
Gram Stain - Preliminary
09/11/24 03:18 MRSA Screen - Final
Nose No Methicillin Resistant Staphylococcus aureus isolated.
09/10/24 CT Pelvis: Left sacral/hip soft tissue ulcers without definite CT evidence for underlying active osteomyelitis. Probable components of chronic osteomyelitis involving the left ischial tuberosity and proximal left femur. Diffuse rectal wall
thickening suggesting proctitis. Large adjacent perirectal abscess as described. Probable associated chronic osteomyelitis of the distal coccygeal segment. Reactive cystitis.
[2024-09-12 14:06] LABS: Glucose - Point of Care 110 mg/dl (70-99)
--- NOTE | 2024-09-12 16:08 | W.IMMPOSTOP ---
Surgical Immed Post Op Note
-
Primary Surgeon: Will
Assisting Surgeon: Kenny
Pre-op Diagnosis: Sacral and ischial pressure ulcers
Post-op Diagnosis: Sacral and ischial pressure ulcers
Procedure Performed: Excisional debridement of sacral and ischial pressure ulcers
Anesthesia Type: General
Specimen / Cultures: See separate documentation
Estimated Blood Loss: 11 cc
Complications: None
Operative Findings:
1. Sharp excisional debridement of necrotic tissue at base of ischial pressure ulcers with thin layer of tissue overlying bone
2. All ischial wounds stage III
3. Wound measurements: RIGHT 5 x 3 cm, LEFT medial 3 x 3 cm, LEFT lateral 7 x 4 cm
4. Dressing with Betadine soaked gauze
--- NOTE | 2024-09-12 16:24 | W.IMMPOSTOP ---
Addendum entered and electronically signed by Medardo Cox MD 09/12/24 18:11:
updated patient
Original Note:
Surgical Immed Post Op Note
-
Primary Surgeon: Medardo Cox MD
Assisting Surgeon: None
Pre-op Diagnosis: Perianal abscess, proctitis, bilateral hip decubitus ulcers, left ischial decubitus ulcer
Post-op Diagnosis: Sacral abscess with osteomyelitis of coccyx, bilateral hip decubitus ulcers, left ischial decubitus ulcer
Procedure Performed: Flexible sigmoidoscopy, incision and drainage of sacral abscess, debridement of left ischial decubitus ulcer and left hip decubitus ulcer; debridement of right hip decubitus ulcer and pulse lavage of wounds by Dr. Solis
Anesthesia Type: General With local
Specimen / Cultures: Sacral abscess cultures
Estimated Blood Loss: 10 mL
Complications: None
Operative Findings: Flexible sigmoidoscopy with copious stool, partially cleared with irrigation; no evidence of rectal inflammation based on visible mucosa; performed exam under anesthesia and no anal canal pathology; probed a punctate opening just
anterior to the coccyx and identified purulence; sent this for anaerobic and aerobic culture; performed incision and entered abscess cavity surrounding tailbone, extending into the presacral space on the left as well as into the subcutaneous space
above the sacrum bilaterally; this was copiously irrigated; exposed tailbone concerning for osteomyelitis; no evidence of fistula to the anus; I suspect this is more likely an abscess associated with her sacral decubitus ulcer associated with
osteomyelitis as opposed to cryptoglandular perianal abscess; debrided the left ischial wound which had significant fibrinous exudate, but no necrotic tissue or purulence; debrided the left hip decubitus wound and excised a small (2 x 3 cm) flap of
ulcerated skin, debrided fibrinous exudate to healthy bleeding tissue; Dr. Solis joined the case and debrided the right hip decubitus ulcer; performed pulse lavage of each wound and packed with Betadine soaked packing; right hip wound measured 3 x
5 cm, left ischial wound measured 3 x 3 cm, sacral wound measured 3 x 1.5 cm, left hip wound measured 4 x 7 cm
--- NOTE | 2024-09-12 16:32 | OR.RPT ---
Operative Report
Operative Report
DATE OF OPERATION: 09/12/2024
SURGEON: Medardo Cox MD
PREOPERATIVE DIAGNOSIS: Perianal abscess, proctitis, bilateral hip decubitus ulcers, left ischial decubitus ulcer
POSTOPERATIVE DIAGNOSIS: Sacral abscess with osteomyelitis of coccyx, bilateral hip decubitus ulcers, left ischial decubitus ulcer
OPERATION: Flexible sigmoidoscopy, exam under anesthesia, incision and drainage of sacral abscess, debridement of left ischial decubitus ulcer and left hip decubitus ulcer; debridement of right hip decubitus ulcer and pulse lavage of wounds by
Will
ASSISTANTS:
1. Jose Solis MD
ANESTHESIA: General With local
ESTIMATED BLOOD LOSS: 10 mL
FINDINGS:
1. Flexible sigmoidoscopy with significant stool, lavaged with visualization of portion of rectal mucosa; visible mucosa without evidence of proctitis
2. Punctate opening over lower sacrum, probed and identified abscess associated with coccyx, concerning for osteomyelitis; no evidence of fistula or other anorectal pathology; final wound measured 3 cm x 1.5 cm
3. Left ischial wound with fibrinous exudate, debrided; final wound measured 3 cm x 3 cm
4. Left hip wound with fibrinous exudate and small pedicle of ulcerated skin, debrided; final wound measured 4 cm x 7 cm
5. Right hip wound debrided by Dr. Solis; final wound measured 3 cm x 5 cm
SPECIMENS:
1. Sacral abscess cultures
DRAINS: None
COMPLICATIONS: None
INDICATIONS: The patient is a 64-year-old female who has PMH of CVA with left hemiparesis, PAD s/p bilateral BKA's, bedbound, A-fib, CAD on DAPT and history of decubitus ulcer. A few weeks ago, she underwent debridement of a decubitus wound. She
presented again with rectal pain and bleeding. A CT scan showed concern for perianal abscess. On exam, she had significant fibrinous accumulation in the left ischial wound and left hip wound. There was an additional right hip wound with overlying
eschar. Therefore, the patient was recommended to have surgery for incision and drainage of perianal abscess as well as debridement of decubitus ulcers, in combination with general surgery. The operation was discussed with the patient in detail,
including the risks, benefits and alternatives. Risks described included, but not limited to bleeding, infection, urinary retention, damage to nearby structures, worsening fecal incontinence, recurrence, need for repeat debridement, and anesthetic
risks. The patient understood and agreed to proceed. The consent was signed and placed in the chart.
PROCEDURE IN DETAIL: The patient was taken to the operating room. The decision was made to intubate the patient for this surgery. On the stretcher, general anesthesia was induced and the patient was intubated without complication. The patient was
placed on the operating table in prone position with pressure points padded. Two seat belts were secured around the legs and upper back. The buttock and perineum was prepped with Betadine and draped in the usual fashion. A time-out was performed
verifying the correct patient, procedure, operative site, positioning, and special equipment.
I performed a flexible sigmoidoscopy. The sigmoidoscope was passed transanally. I immediately encountered stool. I used lavage of a significant amount of saline with partial clearance. I was able to advance the scope to the rectosigmoid
junction. I withdrew evaluating the rectal mucosa. I was able to visualize about 50% of the rectal mucosal along the length of the rectum. There was no evidence of proctitis. The scope was removed.
I performed the exam under anesthesia. Local anesthesia used was a mixture of 30 mL of 0.25% Marcaine with epinephrine and 0.3 mg of dexamethasone. 10 mL was injected perianally. The anorectal exam was performed assessing all four quadrants of the
anal canal using Hill-Hernandez retractors in progressively increasing size. There was no inflammation associated with the anus or any palpable fluctuance circumferentially. There were chronic changes associated with the perianal area, with woody
induration of the skin, but no erythema. There were no concerning hemorrhoids or masses. The sphincter tone was significantly reduced. There was a punctate opening in the posterior perianal region, about 4 cm from the anal verge, just distal to
the tip of the coccyx. On palpation of this area, a small amount of purulence was noted to emanate. This was swabbed and sent for anaerobic and aerobic culture. Using a Santo probe, this punctate opening was evaluated and there was an abscess
cavity under the skin. There was no visible internal opening within the anal canal. I injected dilute hydrogen peroxide and no fistula was identified. I made an elliptical incision about 3 cm in length and took this down through the subcutaneous
tissue and anococcygeal ligament. I entered an abscess cavity with a small amount of purulence that was suctioned away. The abscess cavity extended into the presacral/postanal space, as well as in a subcutaneous space above the coccyx and sacrum.
The coccyx was exposed, concerning for osteomyelitis. This area was copiously irrigated. Due to the location of the abscess and no discernible involvement of the anus or rectum, I suspect that this abscess is a sacral abscess associated with her
stage 1 decubitus ulcer and osteomyelitis of the coccyx as opposed to a cryptoglandular perianal abscess.
The left ischial wound had significant fibrinous exudate. There was no surrounding erythema or purulence. Using forceps and Metzenbaum scissors, the fibrinous exudate was debrided down to healthy tissue. There was no necrotic tissue within the
wound. The left hip wound had significant fibrinous exudate as well as a flap of skin, about 3 x 2 cm, that was unhealthy with ulceration. I excised this area of skin sharply as well as the fibrinous exudate with Metzenbaum scissors, back to
healthy bleeding tissue. Hemostasis was achieved with electrocautery. This wound was copiously irrigated.
There was a right hip wound with an overlying eschar. Dr. Solis performed sharp debridement of this, as dictated by him. He performed pulse irrigation of all wounds. Hemostasis was assured. The remaining 20 mL of local were injected around the
wounds. Hemostasis was assured and the wounds were packed with Betadine soaked packing. The wounds were dressed with gauze and Tegaderm. At this point, the procedure was complete. All needle, sponge and instrument counts were correct. The patient
tolerated the procedure well and was transferred to the recovery room in stable condition.
Of note, Jose Solis MD, administrative assistant receptionist, was necessary during this procedure for traction, countertraction, and exploratory purposes. I was present for the entire duration of the case.
DICTATED BY: Medardo Cox MD
--- NOTE | 2024-09-12 16:37 | W.SUR.PREOP ---
Pre-Operative Surgical Note
-
I have examined this patient prior to the performance of the scheduled procedure.
The patient's condition is unchanged from the time of the current History and
Physical and the patient is able to undergo the scheduled procedure.
[2024-09-12 16:38] LABS: Glucose - Point of Care 92 mg/dl (70-99)
[2024-09-12] MEDS: DILAUDID 0.5 MG IV ×2 (17:42→23:25)
--- NOTE | 2024-09-12 18:03 | PTCARENOTE ---
Patient received from PACU in bed; drowsy, oriented x3; VSS; c/o 9/10 b/l hip pain; IV Dilaudid administered @ 1742. Will continue to monitor.
[2024-09-12] MEDS: D5/0.9% SODIUM CHLORIDE IV (18:06)
[2024-09-12] MEDS: TYLENOL PO (18:07)
[2024-09-12] MEDS: STERILE WATER FOR INJECTION 20 ML IV (21:03)
[2024-09-12] MEDS: MERREM 1000 MG IV (21:04)
[2024-09-12] MEDS: DESENEX/MITRAZOL/ZEASORB 1 APPLIC TOPICAL (21:05)
[2024-09-12 21:13] LABS: Glucose - Point of Care 167 mg/dl (70-99)
[2024-09-12] MEDS: LIPITOR PO (23:18)
[2024-09-12] MEDS: SINGULAIR PO (23:18)
[2024-09-12] MEDS: TYLENOL 1000 MG PO (23:25)
[2024-09-13 03:11] VITALS: BP 106/58
[2024-09-13 07:05] VITALS: BP 128/72
[2024-09-13 07:42] LABS: Glucose - Point of Care 236 mg/dl (70-99)
--- NOTE | 2024-09-13 07:50 | PN.CDI ---
CDI
- -
CDI:
Physician Documentation Request
Admit Date: 09/10/24 18:22
Dear Doctor Kenny,
Please review the following and provide your response in the progress notes.
Clinical Indicators:
- 09/12 Operation report indicates debridement without specificity
- 'left ischial wound had significant fibrinous exudate...the fibrinous exudate was debrided down to healthy tissue'
Could you provide, in the progress notes further clarification regarding the debridement.
Please specify the type of debridement performed:
1. Excisional Debridement - defined as removal by excision of devitalized tissue, necrosis or slough
2. Non-excisional debridement - defined as removal of devitalized tissue, necrosis or slough by such methods as irrigation, brushing, scrubbing or washing.
If the debridement was excisional, please also include:
1. Type of instrument used (#11 blade, #15 blade etc.)
2. What was excised (necrotic tissue, gangrenous tissue, slough etc.)
For excisional or non-excisional, please also include:
1. Depth of debridement (skin, subcutaneous tissue, fascia, muscle, bone etc)
2. Size and appearance of the wound (L, W, D, color of wound, drainage)
Use of terms such as suspected, likely, concern for, or probable (associated with a specific diagnosis that is being evaluated, monitored, or treated as if it exists) are acceptable and can be coded in the inpatient setting, when documented at the
time of discharge.
Thank you,
Georgia Carpio RN
CDI Specialist
Please use your independent medical judgment in providing your response.
[2024-09-13] MEDS: DILAUDID 0.5 MG IV ×3 (07:55→20:37)
[2024-09-13] MEDS: TYLENOL 1000 MG PO (07:57)
[2024-09-13] MEDS: HEPARIN 5000 UNITS SC ×2 (07:57→20:37)
[2024-09-13] MEDS: RETACRIT 10000 UNITS IV (09:10)
[2024-09-13 09:17] LABS: Hematocrit 31.2 % (37.0-47.0); Hemoglobin 9.2 g/dL (12.0-16.0); Mean Corp Hgb Conc. 29.5 g/dL (33.0-37.0); Mean Corpuscular Volume 83.4 fL (81.0-99.0); Nucleated Red Blood Cells % 0 %; Platelet Count 109 10^3/uL (130-400); Red Cell Dist. Width 17.5 % (11.5-14.5)
[2024-09-13] MEDS: NOVOLOG FLEXPEN-LOW RESISTANCE 300 UNITS SC (09:26)
[2024-09-13] MEDS: DESENEX/MITRAZOL/ZEASORB 1 APPLIC TOPICAL ×2 (09:27→20:38)
--- NOTE | 2024-09-13 09:30 | W.PN.UPDATE ---
Update Note
Progress Note Update
Attempted to see pt. Currently being dialyzed. Preferred not to reposition pt during dialysis for wound eval. Will see later today for wound check.
[2024-09-13 09:32] LABS: ALT (SGPT) 13 U/L (0-35); AST (SGOT) 21 U/L (14-36); Albumin 2.0 g/dl (3.5-5.0); Alkaline Phosphatase 94 U/L (38-126); Blood Urea Nitrogen 17 mg/dl (7-17); Calcium 6.5 mg/dl (8.4-10.2); Carbon Dioxide 23 mmol/L (22-30); Chloride 111 mmol/L (98-107); Estimated Creatinine Clearance 25 ml/min; Glucose 244 mg/dl (70-99); Potassium 3.4 mmol/L (3.5-5.1); Sodium 136 mmol/L (135-145); Total Protein 5.3 g/dl (6.3-8.2); eGFR 26.15
--- NOTE | 2024-09-13 09:32 | W.PN.CRS1 ---
Addendum entered and electronically signed by Medardo Cox MD 09/13/24 10:17:
For CDI purposes
-All debridement was excisional
Addendum entered and electronically signed by Medardo Cox MD 09/13/24 10:16:
For CDI purposes
-Left hip wound, debrided with metzenbaum scissors, removed fibrinous exudate and ischemic skin, down to depth of 1.5 cm, wound size 4x7cm
-L ischial wound, debrided with metzenbaum scissors, removed fibrinous exudate, down to depth of 2 cm, wound size 3x3cm
-R hip wound, debrided with 15blade by Will, removed necrotic tissue, down to depth of 1cm, wound size 3x5cm
Original Note:
Today's Communication / Plan
-
As below
Assessment/Plan
-
64-year-old female with PMH of ESRD, PAD s/p bilateral BKA's, CVA, CAD (on DAPT), paroxysmal A-fib, HTN, HLD, decubitus ulcer s/p debridement August [address] Abbasi who presented with rectal pain and bleeding, found to have concern for perianal
abscess on CT
POD 1 flex sig, incision and drainage of sacral abscess, culture sent; debridement of remaining decubitus ulcers with Dr. Solis
AFVSS
Labs pending
� Lower sacral abscess surrounding the coccyx and abutting the anal canal; more likely this represents an abscess associated with her stage I sacral decubitus ulcer; abscess was surrounding the coccyx concerning for osteomyelitis
�Low suspicion for cryptoglandular abscess; no anal pathology or fistula identified; no proctitis seen on flex sig
�Will defer to general surgery for remainder of care
�Recommend daily packing changes; appreciate wound care
�Will evaluate wounds later today as patient was undergoing dialysis during rounds
�Follow-up cultures, continue meropenem, appreciate ID
�Continue regular diet
�Okay to restart blood thinners from colorectal standpoint
� Appreciate nephrology and hospitalist; colorectal will sign off
Subjective Data
Subjective Data
Date of Service: September 13, 2024
Having some pain/soreness near the lower sacrum, controlled with medication. Currently undergoing hemodialysis. Denies any N/V.
Objective Data
-
Vital Signs
Temp Pulse Resp BP Pulse Ox
97 F 74 16 128/72 96
09/13/24 07:05 09/13/24 07:05 09/13/24 07:05 09/13/24 07:05 09/13/24 07:05
Intake & Output
09/12/24 09/13/24 09/14/24
06:59 06:59 06:59
Intake Total 1680 / 1680 480 / 480
Balance 1680 / 1680 480 / 480
Intake:
Oral fluids 480 / 480 480 / 480
IV fluids (Total) 1200 / 1200
Other:
How many times incontinent 1 1
SATURATED amount urine
Lab Results
09/13/24 08:21
09/13/24 08:21
Physical Exam
-
General: No Acute Distress and AOx3
HEENT: Grossly Normal
Abdomen: Soft, Non Distended and Non Tender
Rectal: Other (Deferred due to dialysis)
Skin: Warm and Dry
Wound: Other (deferred due to dialysis)
[2024-09-13] MEDS: MANNITOL 25% 12.5 GRAMS IV ×2 (09:35→10:42)
[2024-09-13] MEDS: FLEXBUMIN 25% FOR HEMODIALYSIS 12.5 GRAMS IV ×2 (09:36→10:42)
--- NOTE | 2024-09-13 09:36 | W.PN.NEPH.HD ---
Assessment
-
Seen on dialysis tolerating treatment
Blood sugars normalized and affect elevated will discontinue D5W NS in the setting of renal failure
Progress Note - Hemodialysis
-
Date of Service: September 13, 2024
Duration: 30 minutes and 3 hours
Potassium Bath: 2
Calcium Bath: 2.5
Opti-Dialyzer: 160
Ultrafiltration: Other (none)
Blood Flow: 350
Dialysate Flow: 600
Heparin: no
EPO: 0
--- NOTE | 2024-09-13 10:14 | W.PN.ID1 ---
Addendum entered and electronically signed by Ceci Varner MD 09/13/24 10:43:
Infusion sheet submitted to shoe caser. If SNF approves IV abx, will have IR place tunneled PICC. Spoke to nephrology who prefers tunneled PICC over regular PICC to preserve veins.
Original Note:
Date of Service
Date of Service: September 13, 2024
Today's Communication
Recommend 6 weeks of meropenem 1g IV q24 through 10/21/24.
Weekly CBC, CMP, CRP while on meropenem.
Will need PICC line.
Assessment / Plan
# Coccyx abscess and osteo
# Chronic osteo of left hip and ischium
# Allergy to PCN, cephalosporin, clinda
# ESRD on HD
- Appreciate Colorectal and Surgery. 09/12 s/p I+D coccyx abscess, (probed to bone/osteo); I+D of bilaterall hip wounds and left ischial wound.
OR abscess cx: pending
- Coccyx abscess wound swab cx: ESBL-Ecoli, Proteus, Pseudomonas
- Continue meropenem 1g IV q24h (d4).
- Recommend 6 weeks of meropenem 1g IV q24 through 10/21/24.
Weekly CBC, CMP, CRP while on meropenem.
Will need PICC line.
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
DM2
ESRD on HD via tunelled catheter
HTN
CVA x 5 with left hemiparesis
CAD s/p stents x 2
PAD s/p bilateral BKA
pAfib
asthma
chronic pain syndrome
Hx uterine/vulvar CA s/p hysterectomy/vulvectomy, Chemo, XRT
Appendectomy
Chief Complaint
-: Other (Bonny-rectal abscess)
Subjective / Review of Systems
Pain improved.
Vital Signs / Physical Exam
Vital Signs
Vital Signs
Temp Pulse Resp BP Pulse Ox
97 F 74 16 128/72 96
09/13/24 07:05 09/13/24 07:05 09/13/24 07:05 09/13/24 07:05 09/13/24 07:05
Physical Exam
Constitutional: Comfortable
Cardiovascular: Regular Rate and S1/S2
Pulmonary: Clear
Gastrointestinal: Soft, Non Tender, Non Distended and Normal Bowel Sounds
Neurological: AO x 3
Lines: HD Cath
Objective Data
Lab Data
Lab Results
09/13/24 08:21
09/13/24 08:21
Estimated Creat Clear 25 ml/min 09/13/24 08:21
Total Bilirubin 0.3 mg/dl (0.2-1.3) 09/13/24 08:21
AST 21 U/L (14-36) 09/13/24 08:21
ALT 13 U/L (0-35) 09/13/24 08:21
Alkaline Phosphatase 94 U/L (38-126) 09/13/24 08:21
Most recent labs reviewed.
Micro Results:
09/10/24 15:07 Wound Culture - Final
Abscess Proteus mirabilis
Escherichia coli - ESBL
Pseudomonas aeruginosa
Gram Stain - Final
09/12/24 15:30 Wound Culture - Pending
Abscess Gram Stain - Preliminary
09/12/24 15:30 Anaerobic Culture - Pending
Abscess
09/11/24 03:18 MRSA Screen - Final
Nose No Methicillin Resistant Staphylococcus aureus isolated.
09/10/24 CT Pelvis: Left sacral/hip soft tissue ulcers without definite CT evidence for underlying active osteomyelitis. Probable components of chronic osteomyelitis involving the left ischial tuberosity and proximal left femur. Diffuse rectal wall
thickening suggesting proctitis. Large adjacent perirectal abscess as described. Probable associated chronic osteomyelitis of the distal coccygeal segment. Reactive cystitis.
[2024-09-13 11:33] LABS: Glucose - Point of Care 110 mg/dl (70-99)
[2024-09-13] MEDS: NOVOLOG FLEXPEN-LOW RESISTANCE SC ×2 (11:37→17:08)
[2024-09-13 11:38] VITALS: BP 108/63
[2024-09-13] MEDS: HEPARIN 3700 UNITS INTRACATH (11:43)
--- NOTE | 2024-09-13 12:00 | W.PN.HOSP.TC ---
Today's Communication/Plan
-
Monitor vital signs see plan
Continue meropenem
Follow cultures
Dialysis today
Assessment / Plan
Assessment / Plan
General: Comfortable and Conversant
HEENT: Anicteric and Moist mucous membranes
Respiratory: Clear and Non Labored Respirations
Cardiac: S1/S2 and Regular Rhythm
GI: Soft and Tender (Mild tendernes to palpation in suprapubic region)
Rectal: Other (Bloody foul drainage from the rachel-rectal)
Skin: Warm, Dry and Rash (Intertrigo / Candidiasis of bilateral breasts)
Neuro: Awake, Alert and Oriented
Sacral abscess
- Colorectal surgery and general surgery following, 09/12 s/p I+D coccyx abscess, (probed to bone/osteo); I+D of bilaterall hip wounds and left ischial wound.
Resume Plavix
ID following
Plan for possible meropenem on discharge
Infected Left Hip and Ischial Wounds
-General Surgery following; s/p debridment
-Continue Wound Care
-Prior culture with Proteus and ESBL E.coli
-Continue meropenem
Suspect toxic metabolic encephalopathy likely multifactorial secondary to perirectal abscess and infected left hip and ischial wounds along with ESRD on hemodialysis
improving
Pancytopenia
Monitor
Hyponatremia
Monitor
Hypokalemia
Managed with dialysis
Monitor
Hypocalcemia
Managed with dialysis
Intertrigo / Candidiasis of Bilateral Breast Folds
-Continue miconazole powder
ESRD on HD
- Nephrology following, HD per nephrology
ASCVD
-Hold Plavix for OR
-Continue aspirin
Diabetes Mellitus, Type II
periods of hypoglycemia this hospitalization
Start Lantus 3 units at bedtime
-Monitor sugars and continue coverage insulin
Paroxysmal Atrial Fibrillation
-Continue Metoprolol and Amiodarone
Essential Hypertension
-Continue Metoprolol
Hyperlipidemia
-Continue Lipitor
Chronic Pain with Opioid Dependence
-Continue fentanyl patch
DVT proph: [place] Heparin
Code Status: DNR per patient at time of admission
I spent a total of 53 minutes with the patient or on the floor. More than 50% of this time involved counseling and coordination of care.
Anticipated Discharge: 24 - 48 hours
Subjective/Interval History
-
Date of Service: September 13, 2024
does have pain
Objective Data
-
Labs:
Laboratory Results
09/13/24 09/13/24 09/13/24
07:21 08:21 11:49
WBC Cancelled 4.3 L
Hgb Cancelled 9.2 L
Hct Cancelled 31.2 L
Plt Count Cancelled 109 L
Sodium Cancelled 136
Potassium Cancelled 3.4 L
Chloride Cancelled 111 H
Carbon Dioxide Cancelled 23
BUN Cancelled 17
Creatinine Cancelled 2.1 H
Glucose Cancelled 244 H
Calcium Cancelled 6.5 L* Cancelled
Total Bilirubin Cancelled 0.3
AST Cancelled 21
ALT Cancelled 13
Alkaline Phosphatase Cancelled 94
Vital Signs:
Vital Signs
Temp Pulse Resp BP Pulse Ox
97.8 F 81 16 108/63 98
09/13/24 11:38 09/13/24 11:38 09/13/24 11:38 09/13/24 11:38 09/13/24 11:38
I&O
09/12/24 09/13/24 09/14/24
06:59 06:59 06:59
Intake Total 1680 / 1680 480 / 480
Balance 1680 / 1680 480 / 480
[2024-09-13] MEDS: PROTONIX 40 MG PO (12:14)
[2024-09-13] MEDS: NEURONTIN 300 MG PO (12:14)
[2024-09-13] MEDS: PACERONE 200 MG PO (12:15)
[2024-09-13] MEDS: EFFEXOR 37.5 MG PO (12:15)
[2024-09-13] MEDS: TOPROL XL 12.5 MG PO (12:15)
[2024-09-13] MEDS: TYLENOL PO ×3 (12:16→23:46)
[2024-09-13] MEDS: LOW STRENGTH ASPIRIN 81 MG PO (12:16)
--- NOTE | 2024-09-13 13:58 | CM ---
Reviewed the chart notes. Received IV abx script from [place]. Sent script via [facility] to [facility]. CM continues to be available to patient/family and is monitoring medical plan for needs at discharge.
Plan: Discharge to [facility] when medically stable.
[2024-09-13 15:00] VITALS: BP 124/69
--- NOTE | 2024-09-13 16:14 | W.PN.UPDATE ---
Update Note
Progress Note Update
Pt seen and evaluated at bedside. Right and left lateral wounds and midline wound at superior aspect of gluteal crease examined. No further necrosis, no purulence, no bleeding. Wounds dressed with saline w2d. Would cont daily dressing changes. GS
will s/o pls call with questions.
[2024-09-13 17:03] LABS: Glucose - Point of Care 93 mg/dl (70-99)
[2024-09-13] MEDS: DURAGESIC 12 MCG/HR PATCH 1 PATCH TRANSDERM (17:26)
[2024-09-13] MEDS: REMOVE DURAGESIC PATCH 1 PATCH REMOVE (17:27)
--- NOTE | 2024-09-13 17:31 | PTCARENOTE ---
Patient post op dressing changed by Dr. Abbasi today. New wound care order in place. plan of care ongoing.
[2024-09-13 19:19] VITALS: BP 127/67
[2024-09-13] MEDS: MERREM 1000 MG IV (20:38)
[2024-09-13] MEDS: LIPITOR 80 MG PO (20:38)
[2024-09-13] MEDS: STERILE WATER FOR INJECTION 20 ML IV (20:38)
[2024-09-13] MEDS: SINGULAIR 10 MG PO (20:39)
[2024-09-13 21:55] LABS: Glucose - Point of Care 105 mg/dl (70-99)
[2024-09-13] MEDS: LANTUS 0.03 UNITS SC (22:02)
[2024-09-13 23:18] VITALS: BP 112/57
[2024-09-14 03:28] VITALS: BP 122/63
[2024-09-14] MEDS: TYLENOL 1000 MG PO ×4 (06:38→23:43)
[2024-09-14 07:05] VITALS: BP 127/72
[2024-09-14 08:00] LABS: Glucose - Point of Care 72 mg/dl (70-99)
[2024-09-14 08:33] LABS: ALT (SGPT) 14 U/L (0-35); AST (SGOT) 25 U/L (14-36); Albumin 2.3 g/dl (3.5-5.0); Alkaline Phosphatase 95 U/L (38-126); Blood Urea Nitrogen 7 mg/dl (7-17); Calcium 6.8 mg/dl (8.4-10.2); Carbon Dioxide 26 mmol/L (22-30); Chloride 109 mmol/L (98-107); Estimated Creatinine Clearance 40 ml/min; Glucose 80 mg/dl (70-99); Potassium 3.8 mmol/L (3.5-5.1); Sodium 137 mmol/L (135-145); Total Protein 5.4 g/dl (6.3-8.2); eGFR 46.49
[2024-09-14] MEDS: PACERONE 200 MG PO (08:54)
[2024-09-14] MEDS: NEURONTIN 300 MG PO (08:54)
[2024-09-14] MEDS: LOW STRENGTH ASPIRIN 81 MG PO (08:54)
[2024-09-14] MEDS: PROTONIX 40 MG PO (08:55)
[2024-09-14] MEDS: TOPROL XL 12.5 MG PO (08:55)
[2024-09-14] MEDS: PLAVIX 75 MG PO (08:55)
[2024-09-14] MEDS: EFFEXOR 37.5 MG PO (08:55)
[2024-09-14] MEDS: HEPARIN 5000 UNITS SC ×2 (08:56→21:02)
[2024-09-14] MEDS: DILAUDID 0.5 MG IV (08:58)
[2024-09-14] MEDS: DESENEX/MITRAZOL/ZEASORB 1 APPLIC TOPICAL ×2 (09:35→21:02)
[2024-09-14] MEDS: CALCIUM GLUCONATE 100 IV (09:36)
[2024-09-14] MEDS: NOVOLOG FLEXPEN-LOW RESISTANCE SC ×3 (09:36→17:22)
[2024-09-14 10:28] LABS: Hematocrit 32.8 % (37.0-47.0); Hemoglobin 10.1 g/dL (12.0-16.0); Mean Corp Hgb Conc. 30.8 g/dL (33.0-37.0); Mean Corpuscular Volume 81.0 fL (81.0-99.0); Nucleated Red Blood Cells % 0 %; Platelet Count 110 10^3/uL (130-400); Red Cell Dist. Width 17.7 % (11.5-14.5)
--- NOTE | 2024-09-14 10:39 | PTCARENOTE ---
critical calcium for patient during morning labs. made aware. STAT calcium given. bed exchanged. pt now on air mattress and woundcare complete.
--- NOTE | 2024-09-14 11:22 | W.PN.HOSP.TC ---
Today's Communication/Plan
-
Monitor vitals
See plan
Continue meropenem
IR guided tunneled PICC today
Continue wound care
HD per nephrology
IV calcium
Assessment / Plan
Assessment / Plan
General: Comfortable and Conversant
HEENT: Anicteric and Moist mucous membranes
Respiratory: Clear and Non Labored Respirations
Cardiac: S1/S2 and Regular Rhythm
GI: Soft and Tender (Mild tendernes to palpation in suprapubic region)
Rectal: Other (Bloody foul drainage from the rachel-rectal)
Skin: Warm, Dry and Rash (Intertrigo / Candidiasis of bilateral breasts)
Neuro: Awake, Alert and Oriented
Sacral abscess
- Colorectal surgery and general surgery following, 09/12 s/p I+D coccyx abscess, (probed to bone/osteo); I+D of bilateral hip wounds and left ischial wound.
Resumed Plavix
ID following
Plan for possible meropenem on discharge. Plan for IR tunneled PICC. ID recommend 6 weeks of meropenem 1g IV q24 through 10/21/24
Infected Left Hip and Ischial Wounds
-General Surgery following; s/p debridment
-Continue Wound Care
-Prior culture with Proteus and ESBL E.coli
-Continue meropenem
Suspect toxic metabolic encephalopathy likely multifactorial secondary to perirectal abscess and infected left hip and ischial wounds along with ESRD on hemodialysis
improving
Pancytopenia
Monitor
Hyponatremia
Monitor
Hypokalemia
Managed with dialysis
Monitor
Hypocalcemia
Managed with dialysis, no HD today, give IV calcium
Intertrigo / Candidiasis of Bilateral Breast Folds
-Continue miconazole powder
ESRD on HD
- Nephrology following, HD per nephrology
ASCVD
Plavix resumed
-Continue aspirin
Diabetes Mellitus, Type II
periods of hypoglycemia this hospitalization
Start Lantus 3 units at bedtime
-Monitor sugars and continue coverage insulin
Paroxysmal Atrial Fibrillation
-Continue Metoprolol and Amiodarone
Essential Hypertension
-Continue Metoprolol
Hyperlipidemia
-Continue Lipitor
Chronic Pain with Opioid Dependence
-Continue fentanyl patch
DVT proph: SC Heparin
Code Status: Full code
I spent a total of 51 minutes with the patient or on the floor. More than 50% of this time involved counseling and coordination of care.
Anticipated Discharge: Within 24 hours
Subjective/Interval History
-
Date of Service: September 14, 2024
Does have some pain
Objective Data
-
Labs:
Laboratory Results
09/14/24 09/14/24
06:50 10:10
WBC 4.2 L
Hgb 10.1 L
Hct 32.8 L
Plt Count 110 L
Sodium 137
Potassium 3.8
Chloride 109 H
Carbon Dioxide 26
BUN 7
Creatinine 1.3 H
Glucose 80
Calcium 6.8 L*
Total Bilirubin 0.4
AST 25
ALT 14
Alkaline Phosphatase 95
Vital Signs:
Vital Signs
Temp Pulse Resp BP Pulse Ox
97.9 F 83 18 127/72 100
09/14/24 07:05 09/14/24 08:55 09/14/24 07:05 09/14/24 08:55 09/14/24 07:05
I&O
09/13/24 09/14/24 09/15/24
06:59 06:59 06:59
Intake Total 480 / 480 570 / 570
Balance 480 / 480 570 / 570
--- NOTE | 2024-09-14 11:46 | W.PN.ID1 ---
Date of Service
Date of Service: September 14, 2024
Today's Communication
Continue meropenem 1g IV q24h x 6 weeks through 10/21/24.
Weekly CBC, CMP, CRP while on meropenem.
Infusion sheet submitted to rifle case repairer.
Consulted IR to place tunneled PICC.
Assessment / Plan
# Coccyx abscess and osteo
# Chronic osteo of left hip and ischium
# Allergy to PCN, cephalosporin, clinda
# ESRD on HD
- Appreciate Colorectal and Surgery. 09/12 s/p I+D coccyx abscess, (probed to bone/osteo); I+D of bilaterall hip wounds and left ischial wound.
OR abscess cx: ESBL-Ecoli, Proteus, Pseudomonas, E. coli, Enterococcus, Strep
- Continue meropenem 1g IV q24h x 6 weeks through 10/21/24.
Weekly CBC, CMP, CRP while on meropenem.
Infusion sheet submitted to rifle case repairer.
Consulted IR to place tunneled PICC.
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
DM2
ESRD on HD via tunelled catheter
HTN
CVA x 5 with left hemiparesis
CAD s/p stents x 2
PAD s/p bilateral BKA
pAfib
asthma
chronic pain syndrome
Hx uterine/vulvar CA s/p hysterectomy/vulvectomy, Chemo, XRT
Appendectomy
Chief Complaint
-: Other (Bonny-rectal abscess)
Subjective / Review of Systems
No new complaints.
Vital Signs / Physical Exam
Vital Signs
Vital Signs
Temp Pulse Resp BP Pulse Ox
97.9 F 83 18 127/72 100
09/14/24 07:05 09/14/24 08:55 09/14/24 07:05 09/14/24 08:55 09/14/24 07:05
Physical Exam
Constitutional: Comfortable
Cardiovascular: Regular Rate and S1/S2
Pulmonary: Clear
Gastrointestinal: Soft, Non Tender, Non Distended and Normal Bowel Sounds
Neurological: AO x 3
Lines: HD Cath
Objective Data
Lab Data
Lab Results
09/14/24 10:10
09/14/24 06:50
Estimated Creat Clear 40 ml/min 09/14/24 06:50
Total Bilirubin 0.4 mg/dl (0.2-1.3) 09/14/24 06:50
AST 25 U/L (14-36) 09/14/24 06:50
ALT 14 U/L (0-35) 09/14/24 06:50
Alkaline Phosphatase 95 U/L (38-126) 09/14/24 06:50
Most recent labs reviewed.
Micro Results:
09/12/24 15:30 Wound Culture - Preliminary
Abscess Proteus mirabilis
Escherichia coli - ESBL
Pseudomonas aeruginosa
Escherichia coli
Enterococcus species
Streptococcus species
Gram Stain - Preliminary
09/12/24 15:30 Anaerobic Culture - Preliminary
Abscess Culture pending. Anaerobic cultures are examined after 3
days incubation. Additional information to follow.
09/10/24 15:07 Wound Culture - Final
Abscess Proteus mirabilis
Escherichia coli - ESBL
Pseudomonas aeruginosa
Gram Stain - Final
09/11/24 03:18 MRSA Screen - Final
Nose No Methicillin Resistant Staphylococcus aureus isolated.
09/10/24 CT Pelvis: Left sacral/hip soft tissue ulcers without definite CT evidence for underlying active osteomyelitis. Probable components of chronic osteomyelitis involving the left ischial tuberosity and proximal left femur. Diffuse rectal wall
thickening suggesting proctitis. Large adjacent perirectal abscess as described. Probable associated chronic osteomyelitis of the distal coccygeal segment. Reactive cystitis.
[2024-09-14 12:22] LABS: Glucose - Point of Care 73 mg/dl (70-99)
--- NOTE | 2024-09-14 13:17 | CM ---
Per Beck @ [facility], the prescription for ABX was approved;
Per Attending, patient will probably be stable for discharge tomorrow; she is getting tunneled PICC today
Plan: return to [facility]
--- NOTE | 2024-09-14 14:13 | W.PN.NEPH.PH ---
Today's Communication / Plan
-
No acute need for dialysis tomorrow
Assessment/Plan
-
IMP:
ESRD dialysis since December 2023
Right IJ tunneled dialysis catheter
Bilateral hip wounds
Insulin-dependent diabetes mellitus
Rectal bleed
Ambulatory dysfunction
Hyperlipidemia
GERD
Plan:
Dialysis Wednesday
Dialysis ordered for tomorrow
Long-term antibiotics (meropenem through 10/21/2024) pending tunneled IJ catheter
No acute need for dialysis today
See orders for details
-
-
Date of Service: September 14, 2024
CC / HPI / ROS
-
Chief Complaint:
ESRD
History of Present Illness:
tolerated HD yesterday
BP stable low
K low today
Review of Systems:
no CP/SOB
pain from ulcers
Labs
-
Labs:
WBC 4.2 10^3/uL (4.8-10.8) L 09/14/24 10:10
RBC 4.05 10^6/uL (4.20-5.40) L 09/14/24 10:10
Hgb 10.1 g/dL (12.0-16.0) L 09/14/24 10:10
Hct 32.8 % (37.0-47.0) L 09/14/24 10:10
Plt Count 110 10^3/uL (130-400) L 09/14/24 10:10
Sodium 137 mmol/L (135-145) 09/14/24 06:50
Potassium 3.8 mmol/L (3.5-5.1) 09/14/24 06:50
Chloride 109 mmol/L (98-107) H 09/14/24 06:50
Carbon Dioxide 26 mmol/L (22-30) 09/14/24 06:50
BUN 7 mg/dl (7-17) 09/14/24 06:50
Creatinine 1.3 mg/dL (0.6-1.0) H 09/14/24 06:50
eGFR 46.49 09/14/24 06:50
Glucose 80 mg/dl (70-99) 09/14/24 06:50
Calcium 6.8 mg/dl (8.4-10.2) L* 09/14/24 06:50
Albumin 2.3 g/dl (3.5-5.0) L 09/14/24 06:50
Physical Exam
-
Vital Signs:
Vital Signs
Temp Pulse Resp BP Pulse Ox
97.9 F 83 18 127/72 100
09/14/24 07:05 09/14/24 08:55 09/14/24 07:05 09/14/24 08:55 09/14/24 07:05
Cardiovascular:: Regular rate and rhythm
Respiratory:: Bilateral: Coarse
Lung Excursion:: Normal
Abdomen:: Nontender and Soft
Bowel Sounds:: Normal
Extremity Edema:: None: Bilateral:
[2024-09-14 15:38] VITALS: BP 136/68
[2024-09-14 16:08] LABS: Glucose - Point of Care 68 mg/dl (70-99)
[2024-09-14 16:47] LABS: Glucose - Point of Care 68 mg/dl (70-99)
[2024-09-14 17:02] LABS: Glucose - Point of Care 81 mg/dl (70-99)
[2024-09-14 19:02] LABS: Glucose - Point of Care 100 mg/dl (70-99)
[2024-09-14] MEDS: LANTUS SC (20:56)
[2024-09-14] MEDS: STERILE WATER FOR INJECTION 20 ML IV (21:02)
[2024-09-14] MEDS: MERREM 1000 MG IV (21:02)
[2024-09-14] MEDS: LIPITOR 80 MG PO (21:06)
[2024-09-14] MEDS: SINGULAIR 10 MG PO (21:06)
[2024-09-14 21:45] LABS: Glucose - Point of Care 90 mg/dl (70-99)
[2024-09-14 23:14] VITALS: BP 107/56
[2024-09-15] VITALS (10 sets, daily range): BP systolic 78–130; BP diastolic 49–85
[2024-09-15 03:50] LABS: Glucose - Point of Care 83 mg/dl (70-99)
[2024-09-15] MEDS: TYLENOL 1000 MG PO ×2 (05:39→12:08)
[2024-09-15] MEDS: DILAUDID 0.5 MG IV ×3 (06:32→20:41)
[2024-09-15 07:35] LABS: Glucose - Point of Care 80 mg/dl (70-99)
[2024-09-15] MEDS: HEPARIN 5000 UNITS SC ×2 (07:54→20:15)
[2024-09-15] MEDS: NEURONTIN 300 MG PO (07:55)
[2024-09-15] MEDS: PROTONIX 40 MG PO (07:56)
[2024-09-15] MEDS: EFFEXOR 37.5 MG PO (07:56)
[2024-09-15] MEDS: LOW STRENGTH ASPIRIN 81 MG PO (07:56)
[2024-09-15] MEDS: PLAVIX 75 MG PO (07:56)
[2024-09-15] MEDS: NOVOLOG FLEXPEN-LOW RESISTANCE SC ×3 (07:57→17:23)
[2024-09-15] MEDS: TOPROL XL PO (08:04)
[2024-09-15] MEDS: PACERONE PO (08:05)
[2024-09-15 08:53] LABS: Hematocrit 29.6 % (37.0-47.0); Hemoglobin 8.8 g/dL (12.0-16.0); Mean Corp Hgb Conc. 29.7 g/dL (33.0-37.0); Mean Corpuscular Volume 83.1 fL (81.0-99.0); Nucleated Red Blood Cells % 0 %; Platelet Count 106 10^3/uL (130-400); Red Cell Dist. Width 17.8 % (11.5-14.5)
[2024-09-15] MEDS: MANNITOL 25% 12.5 GRAMS IV ×2 (09:06→10:04)
[2024-09-15] MEDS: RETACRIT 4000 UNITS IV (09:06)
[2024-09-15 09:15] LABS: ALT (SGPT) 25 U/L (0-35); AST (SGOT) 185 U/L (14-36); Albumin 2.1 g/dl (3.5-5.0); Alkaline Phosphatase 135 U/L (38-126); Blood Urea Nitrogen 12 mg/dl (7-17); Calcium 7.0 mg/dl (8.4-10.2); Carbon Dioxide 28 mmol/L (22-30); Chloride 106 mmol/L (98-107); Estimated Creatinine Clearance 28 ml/min; Glucose 85 mg/dl (70-99); Potassium 3.2 mmol/L (3.5-5.1); Sodium 137 mmol/L (135-145); Total Protein 5.2 g/dl (6.3-8.2); eGFR 29.49
--- NOTE | 2024-09-15 11:07 | W.PN.NEPH.HD ---
Assessment
-
Seen on dialysis tolerating blood pressure requiring midodrine
Progress Note - Hemodialysis
-
Date of Service: September 15, 2024
Duration: 30 minutes and 3 hours
Potassium Bath: 2
Calcium Bath: 2.5
Opti-Dialyzer: 160
Ultrafiltration: Other (none)
Blood Flow: 350
Dialysate Flow: 600
Heparin: no
EPO: 0
--- NOTE | 2024-09-15 11:16 | W.PN.HOSP.TC ---
Today's Communication/Plan
-
Monitor vital signs see plan
HD today
IR for tunneled PICC today
Continue with meropenem
Hopeful discharge today or tomorrow
Assessment / Plan
Assessment / Plan
General: Comfortable and Conversant
HEENT: Anicteric and Moist mucous membranes
Respiratory: Clear and Non Labored Respirations
Cardiac: S1/S2 and Regular Rhythm
GI: Soft and Tender (Mild tendernes to palpation in suprapubic region)
Rectal: Other (Bloody foul drainage from the rachel-rectal)
Skin: Warm, Dry and Rash (Intertrigo / Candidiasis of bilateral breasts)
Neuro: Awake, Alert and Oriented
Sacral abscess
- Colorectal surgery and general surgery following, 09/12 s/p I+D coccyx abscess, (probed to bone/osteo); I+D of bilateral hip wounds and left ischial wound.
Resumed Plavix
ID following
Plan for possible meropenem on discharge. Plan for IR tunneled PICC 09/15/2024. ID recommend 6 weeks of meropenem 1g IV q24 through 10/21/24
Infected Left Hip and Ischial Wounds
-General Surgery following; s/p debridment
-Continue Wound Care
-Prior culture with Proteus and ESBL E.coli
-Continue meropenem
Suspect toxic metabolic encephalopathy likely multifactorial secondary to perirectal abscess and infected left hip and ischial wounds along with ESRD on hemodialysis
improving
Pancytopenia
Monitor
Hyponatremia
Monitor
Hypokalemia
Managed with dialysis
Monitor
Thrombocytopenia
Monitor
Hypocalcemia
Managed with dialysis, no HD today, give IV calcium
Intertrigo / Candidiasis of Bilateral Breast Folds
-Continue miconazole powder
ESRD on HD
- Nephrology following, HD per nephrology
ASCVD
Plavix resumed
-Continue aspirin
Diabetes Mellitus, Type II
periods of hypoglycemia this hospitalization
Start Lantus 3 units at bedtime
-Monitor sugars and continue coverage insulin
Paroxysmal Atrial Fibrillation
-Continue Metoprolol and Amiodarone
Essential Hypertension
-Continue Metoprolol
Hyperlipidemia
-Continue Lipitor
Chronic Pain with Opioid Dependence
-Continue fentanyl patch
DVT proph: [place] Heparin
Code Status: Full code
I spent a total of 52 minutes with the patient or on the floor. More than 50% of this time involved counseling and coordination of care.
Anticipated Discharge: Within 24 hours
Subjective/Interval History
-
Date of Service: September 15, 2024
Does have some pain
Objective Data
-
Labs:
Laboratory Results
09/15/24
08:17
WBC 4.7 L
Hgb 8.8 L
Hct 29.6 L
Plt Count 106 L
Sodium 137
Potassium 3.2 L
Chloride 106
Carbon Dioxide 28
BUN 12
Creatinine 1.9 H
Glucose 85
Calcium 7.0 L
Total Bilirubin 0.6
AST 185 H
ALT 25
Alkaline Phosphatase 135 H
Vital Signs:
Vital Signs
Temp Pulse Resp BP Pulse Ox
97.7 F 81 16 77/52 98
09/15/24 07:52 09/15/24 10:43 09/15/24 07:52 09/15/24 10:43 09/15/24 07:52
I&O
09/14/24 09/15/24 09/16/24
06:59 06:59 06:59
Intake Total 570 / 570 430 / 430
Balance 570 / 570 430 / 430
[2024-09-15 12:09] LABS: Glucose - Point of Care 99 mg/dl (70-99)
[2024-09-15] MEDS: DESENEX/MITRAZOL/ZEASORB 1 APPLIC TOPICAL ×2 (12:10→20:15)
--- NOTE | 2024-09-15 14:16 | CM ---
Reviewed the chart notes and spoke with the patient at the bedside. IMM reviewed. Waiting for PICC tunnelled cath to be placed. CM continues to be available to patient/family and is monitoring medical plan for needs at discharge.
Plan: Discharge back to [facility] when medically stable.
Call report to: [phone]
Fax report to: [phone]
Medical and transport forms on the chart.
--- NOTE | 2024-09-15 15:30 | PTCARENOTE ---
Per Dr. Varner ok for patient to have a double lumen licc line. procedure complete. patient arrived and remained hypotensive during her time here in [facility]. Dressing clean, dry and intact
[2024-09-15 17:21] LABS: Glucose - Point of Care 78 mg/dl (70-99)
[2024-09-15] MEDS: TYLENOL PO (17:38)
--- NOTE | 2024-09-15 17:48 | PTCARENOTE ---
Addendum entered by Nataliya Wade RN 09/15/24 18:06:
rechecked BP of 108/62. HR of 91. sugar check of 68. following hypoglycemia protocol at this time.
Addendum entered by Nataliya Wade RN 09/15/24 18:01:
verbal for an additional 5mg of midodrine given PO
Original Note:
pt returned from [facility] this afternoon. pt hypotensive with BP of 93/52, PO midodrine ordered by . BP rechecked for a manual of 82/46. made aware.
[2024-09-15 18:05] LABS: Glucose - Point of Care 68 mg/dl (70-99)
[2024-09-15 18:43] LABS: Glucose - Point of Care 77 mg/dl (70-99)
--- NOTE | 2024-09-15 18:46 | W.PN.ID1 ---
Date of Service
Date of Service: September 15, 2024
Today's Communication
DC planning.
Continue meropenem.
Assessment / Plan
# Coccyx abscess and osteo
# Chronic osteo of left hip and ischium
# Allergy to PCN, cephalosporin, clinda
# ESRD on HD
- Appreciate Colorectal and Surgery. 09/12 s/p I+D coccyx abscess, (probed to bone/osteo); I+D of bilaterall hip wounds and left ischial wound.
OR abscess cx: ESBL-Ecoli, Proteus, Pseudomonas, E. coli, Enterococcus, Strep
- Continue meropenem 1g IV q24h x 6 weeks through 10/21/24.
Tunnelled PICC in place.
Check Weekly CBC, CMP, CRP while on meropenem.
Infusion sheet submitted to cyanide case hardener.
- Dispo planning.
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
DM2
ESRD on HD via tunelled catheter
HTN
CVA x 5 with left hemiparesis
CAD s/p stents x 2
PAD s/p bilateral BKA
pAfib
asthma
chronic pain syndrome
Hx uterine/vulvar CA s/p hysterectomy/vulvectomy, Chemo, XRT
Appendectomy
Chief Complaint
-: Other (Bonny-rectal abscess)
Subjective / Review of Systems
Feeling better.
Vital Signs / Physical Exam
Vital Signs
Vital Signs
Temp Pulse Resp BP Pulse Ox
97.6 F 91 16 108/62 96
09/15/24 16:00 09/15/24 18:06 09/15/24 16:00 09/15/24 18:06 09/15/24 16:00
Physical Exam
Constitutional: Comfortable
Cardiovascular: Regular Rate and S1/S2
Pulmonary: Clear
Gastrointestinal: Soft, Non Tender, Non Distended and Normal Bowel Sounds
Neurological: AO x 3
Lines: PICC (Left IJ tunnelled Picc intact) and HD Cath
Objective Data
Lab Data
Lab Results
09/15/24 08:17
09/15/24 08:17
Estimated Creat Clear 28 ml/min 09/15/24 08:17
Total Bilirubin 0.6 mg/dl (0.2-1.3) 09/15/24 08:17
AST 185 U/L (14-36) H 09/15/24 08:17
ALT 25 U/L (0-35) 09/15/24 08:17
Alkaline Phosphatase 135 U/L (38-126) H 09/15/24 08:17
Most recent labs reviewed.
Micro Results:
09/12/24 15:30 Anaerobic Culture - Preliminary
Abscess Culture pending. Anaerobic cultures are examined after 3
days incubation. Additional information to follow.
09/12/24 15:30 Wound Culture - Preliminary
Abscess Proteus mirabilis
Escherichia coli - ESBL
Pseudomonas aeruginosa
Escherichia coli
Enterococcus species
Streptococcus species
Gram Stain - Preliminary
09/10/24 15:07 Wound Culture - Final
Abscess Proteus mirabilis
Escherichia coli - ESBL
Pseudomonas aeruginosa
Gram Stain - Final
09/11/24 03:18 MRSA Screen - Final
Nose No Methicillin Resistant Staphylococcus aureus isolated.
09/10/24 CT Pelvis: Left sacral/hip soft tissue ulcers without definite CT evidence for underlying active osteomyelitis. Probable components of chronic osteomyelitis involving the left ischial tuberosity and proximal left femur. Diffuse rectal wall
thickening suggesting proctitis. Large adjacent perirectal abscess as described. Probable associated chronic osteomyelitis of the distal coccygeal segment. Reactive cystitis.
[2024-09-15] MEDS: STERILE WATER FOR INJECTION 20 ML IV (20:15)
[2024-09-15] MEDS: MERREM 1000 MG IV (20:15)
[2024-09-15] MEDS: ZOFRAN 4 MG IV (20:41)
[2024-09-15 20:42] LABS: Glucose - Point of Care 67 mg/dl (70-99)
[2024-09-15 21:15] LABS: Glucose - Point of Care 94 mg/dl (70-99)
[2024-09-15] MEDS: LANTUS SC (22:11)
[2024-09-15] MEDS: SINGULAIR 10 MG PO (22:19)
[2024-09-15] MEDS: LIPITOR 80 MG PO (22:19)
[2024-09-15 23:12] LABS: Glucose - Point of Care 80 mg/dl (70-99)
[2024-09-16] VITALS (48 sets, daily range): BP systolic 82–155; BP diastolic 47–141; BMI 27.8
--- NOTE | 2024-09-16 00:22 | W.PN.UPDATE ---
Update Note
Progress Note Update
Notified by RN patient c/o N/V and abdominal pain associated with diarrhea throughout the day. Patient also noted for intermittent hypotension and hypoglycemia. Upon assessment pt AAOX3, reports of new right lower quadrant abdominal pain. Abdomen
obese nondistented, no bowel sounds heard. Rx zofran, NPO, KUB.
[2024-09-16] MEDS: TYLENOL 1000 MG PO (00:27)
[2024-09-16 01:30] LABS: Glucose - Point of Care 75 mg/dl (70-99)
[2024-09-16 04:10] LABS: Glucose - Point of Care 59 mg/dl (70-99)
[2024-09-16] MEDS: DEXTROSE 50% SYRINGE 12.5 GRAMS IV ×2 (04:11→11:12)
[2024-09-16] MEDS: ZOFRAN 4 MG IV ×2 (04:18→13:10)
[2024-09-16 04:52] LABS: Glucose - Point of Care 104 mg/dl (70-99)
[2024-09-16] MEDS: TYLENOL PO (05:36)
--- NOTE | 2024-09-16 05:56 | PTCARENOTE ---
Patient complains of nausea and spits up mucus. Also complains of abdominal pain 7/10 and fatigue/weakness at 20:10. Messaged BARREL ASSEMBLER Zofran given and PRN Dilaudid
At 20:20 patients vitals are BP 112/61 HR 81 O2 98 Resp 14
At 20:40 Blood sugar 67. Juice given. 21:13 Blood sugar 94.
At 21:20 BP manual BP 84/50. Messaged KALI. BARREL ASSEMBLER came to floor to evaluate patient. Monitor blood pressure
At 22:30: Patients blood pressure 130/85
[2024-09-16 06:59] LABS: Glucose - Point of Care 80 mg/dl (70-99)
[2024-09-16 08:11] LABS: Hematocrit 33.6 % (37.0-47.0); Hemoglobin 10.0 g/dL (12.0-16.0); Mean Corp Hgb Conc. 29.8 g/dL (33.0-37.0); Mean Corpuscular Volume 82.8 fL (81.0-99.0); Nucleated Red Blood Cells % 0.2 %; Platelet Count 129 10^3/uL (130-400); Red Cell Dist. Width 18.5 % (11.5-14.5)
[2024-09-16] MEDS: NOVOLOG FLEXPEN-LOW RESISTANCE SC ×3 (08:18→18:48)
[2024-09-16] MEDS: TOPROL XL PO (08:19)
[2024-09-16 08:33] LABS: ALT (SGPT) 195 U/L (0-35); Albumin 2.1 g/dl (3.5-5.0); Alkaline Phosphatase 248 U/L (38-126); Blood Urea Nitrogen 4 mg/dl (7-17); Calcium 7.2 mg/dl (8.4-10.2); Carbon Dioxide 22 mmol/L (22-30); Chloride 107 mmol/L (98-107); Estimated Creatinine Clearance 49 ml/min; Glucose 85 mg/dl (70-99); Potassium 4.5 mmol/L (3.5-5.1); Sodium 138 mmol/L (135-145); Total Protein 5.2 g/dl (6.3-8.2); eGFR 51.18
[2024-09-16 09:02] LABS: AST (SGOT) 3533 U/L (14-36)
[2024-09-16 09:10] LABS: Glucose - Point of Care 74 mg/dl (70-99)
--- NOTE | 2024-09-16 09:35 | PTCARENOTE ---
Patient Manual BP 84/60. Made aware. Midodrine 10mg ordered. plan of care ongoing.
[2024-09-16] MEDS: PACERONE PO (09:41)
[2024-09-16] MEDS: PROTONIX 40 MG PO (09:53)
[2024-09-16] MEDS: LOW STRENGTH ASPIRIN 81 MG PO (09:53)
[2024-09-16] MEDS: NEURONTIN 300 MG PO (09:53)
[2024-09-16] MEDS: EFFEXOR 37.5 MG PO (09:53)
[2024-09-16] MEDS: HEPARIN 5000 UNITS SC ×2 (09:54→19:35)
[2024-09-16] MEDS: DESENEX/MITRAZOL/ZEASORB 1 APPLIC TOPICAL ×2 (09:54→22:47)
[2024-09-16] MEDS: PLAVIX PO (10:05)
--- NOTE | 2024-09-16 10:15 | W.PN.ID1 ---
Date of Service
Date of Service: September 16, 2024
Today's Communication
See below,
Assessment / Plan
# New N/V/R abd pain
# Acute elevated LFT's T. bili, AST>3000, ALT 195
# Acute leukocytosis
# hx cholecystectomy
- Concern for biliary obstruction
- For Abd US, if neg CT a/p
- Already on meropenem.
- Follow temps/wbc/LFT's
# Coccyx abscess and osteo
# Chronic osteo of left hip and ischium
# Allergy to PCN, cephalosporin, clinda
# ESRD on HD
- Appreciate Colorectal and Surgery. 09/12 s/p I+D coccyx abscess, (probed to bone/osteo); I+D of bilaterall hip wounds and left ischial wound.
OR abscess cx: ESBL-Ecoli, Proteus, Pseudomonas, E. coli, Enterococcus, Strep
- Continue meropenem 1g IV q24h x 6 weeks through 10/21/24.
Tunnelled PICC in place.
Check Weekly CBC, CMP, CRP while on meropenem.
Infusion sheet submitted to rehabilitation case coordinator.
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
DM2
ESRD on HD via tunelled catheter
HTN
CVA x 5 with left hemiparesis
CAD s/p stents x 2
PAD s/p bilateral BKA
pAfib
asthma
chronic pain syndrome
Hx uterine/vulvar CA s/p hysterectomy/vulvectomy, Chemo, XRT
Cholecystectomy
Chief Complaint
-: Other (Bonny-rectal abscess)
Subjective / Review of Systems
c/o N/V since yesterday evening. + right abd pain, loose stools.
Vital Signs / Physical Exam
Vital Signs
Vital Signs
Temp Pulse Resp BP Pulse Ox
97.8 F 93 16 84/60 97
09/16/24 09:00 09/16/24 09:00 09/16/24 07:00 09/16/24 09:25 09/16/24 07:00
Physical Exam
Constitutional: Acutely Ill and Chronically Ill
Cardiovascular: Regular Rate and S1/S2
Pulmonary: Clear
Gastrointestinal: Soft, Tender (right upper and lower) and Normal Bowel Sounds
Genito-Urinary: Negative CVA Tenderness
Neurological: AO x 3
Lines: HD Cath and Other (Tunneled PICC)
Objective Data
Lab Data
Lab Results
09/16/24 07:26
09/16/24 07:26
Estimated Creat Clear 49 ml/min 09/16/24 07:26
Total Bilirubin 1.9 mg/dl (0.2-1.3) H D 09/16/24 07:26
AST 3533 U/L (14-36) H* 09/16/24 07:26
ALT 195 U/L (0-35) H 09/16/24 07:26
Alkaline Phosphatase 248 U/L (38-126) H 09/16/24 07:26
Most recent labs reviewed.
Micro Results:
09/12/24 15:30 Anaerobic Culture - Preliminary
Abscess Culture pending. Anaerobic cultures are examined after 3
days incubation. Additional information to follow.
09/12/24 15:30 Wound Culture - Preliminary
Abscess Proteus mirabilis
Escherichia coli - ESBL
Pseudomonas aeruginosa
Escherichia coli
Enterococcus species
Streptococcus species
Gram Stain - Preliminary
09/10/24 15:07 Wound Culture - Final
Abscess Proteus mirabilis
Escherichia coli - ESBL
Pseudomonas aeruginosa
Gram Stain - Final
09/11/24 03:18 MRSA Screen - Final
Nose No Methicillin Resistant Staphylococcus aureus isolated.
7/27/25 CT Pelvis: Left sacral/hip soft tissue ulcers without definite CT evidence for underlying active osteomyelitis. Probable components of chronic osteomyelitis involving the left ischial tuberosity and proximal left femur. Diffuse rectal wall
thickening suggesting proctitis. Large adjacent perirectal abscess as described. Probable associated chronic osteomyelitis of the distal coccygeal segment. Reactive cystitis.
Care Review
Plan reviewed with: Physician (Dr. Leger)
[2024-09-16 11:08] LABS: Glucose - Point of Care 60 mg/dl (70-99)
--- NOTE | 2024-09-16 11:27 | PTCARENOTE ---
Rechecked manual bp 90/55. HR of 90. sugar check of 60. Following hypoglycemia protocol at this time. made aware.
--- NOTE | 2024-09-16 11:33 | W.PN.HOSP.TC ---
Today's Communication/Plan
-
Monitor vital sign
see plan
Elevated LFTs with bilirubin
Could not tolerate ultrasound abdomen, check CT abdomen/pelvis
Discussed with son, patient has history of biliary stones with stent. He is not sure if stent has been taken out. Procedure was done at [facility]. Requested [facility] records.
GI evaluation
Blood pressure low despite midodrine. ESRD patient. Will transfer to IMU for Levophed. If Levophed requirement increasing then will transfer to ICU
Continue with antibiotics
Assessment / Plan
Assessment / Plan
General: Comfortable and Conversant
HEENT: Anicteric and Moist mucous membranes
Respiratory: Clear and Non Labored Respirations
Cardiac: S1/S2 and Regular Rhythm
GI: Soft and Tender (Mild tendernes to palpation in suprapubic region)
Rectal: Other (Bloody foul drainage from the rachel-rectal)
Skin: Warm, Dry and Rash (Intertrigo / Candidiasis of bilateral breasts)
Neuro: Awake, Alert and Oriented
Sacral abscess
- Colorectal surgery and general surgery following, 09/12 s/p I+D coccyx abscess, (probed to bone/osteo); I+D of bilateral hip wounds and left ischial wound.
Hold Plavix for now in case need any procedure
ID following
Plan for meropenem on discharge. s/p IR tunneled line 09/15/2024. ID recommend 6 weeks of meropenem 1g IV q24 through 10/21/24
Overnight 09/15 -09/16, developed abdominal pain nausea and vomiting along with hypotension
History of cholecystectomy, significant abdominal pain on exam
Could not tolerate ultrasound abdomen, check CT abdomen/pelvis
GI evaluation
Elevated LFTs and bilirubin, could be from shock liver given hypotension however cannot rule out obstructive biliary problem
Given patient is ESRD on hemodialysis, cannot do full fluid resuscitation. Persistently hypotensive. Responded minimally to midodrine. Will transfer patient to IMU for now for pressors. If pressor requirements will go up then we will transfer to
ICU
New leukocytosis today, continue to monitor. Repeat labs later today
Maintain n.p.o.
per son, patient had biliary stent at [facility]. he is not sure if stent was taken out recently or not. she has hx of CBD stones. request records from [facility]
Infected Left Hip and Ischial Wounds
-General Surgery following; s/p debridment
-Continue Wound Care
-Prior culture with Proteus and ESBL E.coli
-Continue meropenem
Suspect toxic metabolic encephalopathy likely multifactorial secondary to perirectal abscess and infected left hip and ischial wounds along with ESRD on hemodialysis
improving
Pancytopenia
Monitor
Hyponatremia
Monitor
Hypokalemia
Managed with dialysis
Monitor
Thrombocytopenia
Monitor
Hypocalcemia
Managed with dialysis, no HD today, give IV calcium
Intertrigo / Candidiasis of Bilateral Breast Folds
-Continue miconazole powder
ESRD on HD
- Nephrology following, HD per nephrology
ASCVD
Plavix resumed
-Continue aspirin
Diabetes Mellitus, Type II
periods of hypoglycemia this hospitalization
Hold Lantus
-Monitor sugars and continue coverage insulin
Paroxysmal Atrial Fibrillation
- Hold metoprolol due to blood pressure, hold amiodarone due to elevated LFTs
CVA x 5 with left hemiparesis
CAD status post stents
PAD s/p bilateral BKA
Essential Hypertension
-Continue Metoprolol
Hyperlipidemia
-Continue Lipitor
Chronic Pain with Opioid Dependence
-Continue fentanyl patch
Hx uterine/vulvar CA s/p hysterectomy/vulvectomy, Chemo, XRT
DVT proph: SC Heparin
Code Status: Full code
Total Critical Care Time__54___ minutes. I was immediately available to the patient and staff. I personally examined, reviewed labs, diagnostic images/reports, interpretations, treatment plans, discussed patient care with other providers and
family or caregivers (if patient is unable to make decisions), entered orders as appropriate and documented the medical record.
Anticipated Discharge: > 48 hours
Subjective/Interval History
-
Date of Service: September 16, 2024
Overnight developed abdominal pain, nausea and vomiting
Objective Data
-
Labs:
Laboratory Results
09/16/24 09/16/24
07:26 17:00
WBC 13.3 H Pending
Hgb 10.0 L Pending
Hct 33.6 L Pending
Plt Count 129 L D Pending
Sodium 138 Pending
Potassium 4.5 D Pending
Chloride 107 Pending
Carbon Dioxide 22 Pending
BUN 4 L Pending
Creatinine 1.2 H Pending
Glucose 85 Pending
Calcium 7.2 L Pending
Total Bilirubin 1.9 H D Pending
AST 3533 H* Pending
ALT 195 H Pending
Alkaline Phosphatase 248 H Pending
Vital Signs:
Vital Signs
Temp Pulse Resp BP Pulse Ox
97.8 F 93 16 90/55 97
09/16/24 09:00 09/16/24 09:00 09/16/24 07:00 09/16/24 11:19 09/16/24 10:00
I&O
09/15/24 09/16/24 09/17/24
06:59 06:59 06:59
Intake Total 430 / 430 120 / 120
Balance 430 / 430 120 / 120
[2024-09-16 11:35] LABS: Glucose - Point of Care 102 mg/dl (70-99)
[2024-09-16] MEDS: LEVOPHED 250 IV (13:09)
[2024-09-16] MEDS: OMNIPAQUE 50 ML PO (13:09)
[2024-09-16 14:12] LABS: Glucose - Point of Care 81 mg/dl (70-99)
--- NOTE | 2024-09-16 15:02 | PTCARENOTE ---
Received from [address] [place] [id number], IMU monitors placed- SR/ ST 94, BP 80/50 map 60, RR16 pox 98 on RAIR. AAOx3, lethargic and 'dizzy'. IV Levophed initiated via left chest wall PICC. Adjusted per MAPS currently at 2mcg. ACCU check 81. PO Contrast given
once more awake took over half dose. Will transport to CT scan.
--- NOTE | 2024-09-16 16:35 | W.PN.NEPH.PH ---
Today's Communication / Plan
-
cont supportive care
likely start midodrine if unable to be off pressor
Assessment/Plan
-
IMP:
ESRD dialysis since December 2023
Right IJ tunneled dialysis catheter
Bilateral hip wounds
Insulin-dependent diabetes mellitus
Rectal bleed
Ambulatory dysfunction
Hyperlipidemia
GERD
Plan:
noted events, on low dose norepi for hypotension
pending CT today
Long-term antibiotics (meropenem through 10/21/2024) per ID
monitor LFTs
HD on Wednesday
-
-
Date of Service: September 16, 2024
CC / HPI / ROS
-
Chief Complaint:
ESRD
History of Present Illness:
tolerated HD yesterday
BP low today, better on levo
WBC and LFts up
Review of Systems:
no CP/SOB
no fever
has nausea, vomitng, abd pain from last night-symp little better now
Labs
-
Labs:
eGFR 51.18 09/16/24 07:26
Physical Exam
-
Vital Signs:
Vital Signs
Temp Pulse Resp BP Pulse Ox
97.8 F 88 15 90/51 98
09/16/24 09:00 09/16/24 15:00 09/16/24 15:00 09/16/24 14:54 09/16/24 13:42
Cardiovascular:: Regular rate and rhythm
Respiratory:: Bilateral: Coarse
Lung Excursion:: Normal
Abdomen:: Nontender and Soft
Bowel Sounds:: Normal
Extremity Edema:: None: Bilateral:
[2024-09-16 17:51] LABS: Hematocrit 31.2 % (37.0-47.0); Hemoglobin 9.4 g/dL (12.0-16.0); Mean Corp Hgb Conc. 30.1 g/dL (33.0-37.0); Mean Corpuscular Volume 82.1 fL (81.0-99.0); Platelet Count 134 10^3/uL (130-400); Red Cell Dist. Width 18.5 % (11.5-14.5)
--- NOTE | 2024-09-16 17:57 | CON.GI ---
Consultation
-
Date/Time Consultation Requested: 09/16/2024, 10:30am
Date/Time Consultation Performed: 09/16/2024, 6pm
Requesting Provider: Dr. Amador
Performing Provider: Dr. Leger
Reason for Consultation: abnormal LFTs
Medical History
Chief Complaint / HPI
Chief Complaint: bloody drainage from rectum
History of Present Illness:
64-year-old female past medical history of end-stage renal disease on dialysis, CAD/PAD on plavix, chronic pain on opioids, presenting initially on September 10 with rectal bloody drainage found to have a perirectal abscess as well as infected left hip
and ischial wounds. She went to the OR September 12 for debridement of the ulcers as well as incision and drainage of sacral abscess and flexible sigmoidoscopy. She has been followed both by colorectal surgery, general surgery, and infectious disease.
Reviewing the infectious disease note, she had new onset of nausea, vomiting and right-sided abdominal pain and her LFTs also dione significantly with AST 3533, ALT 195, total bilirubin 1.9. She underwent abdominal CT today which shows diffuse
circumferential rectal wall thickening, interval increase in air density possibly from debridement, status postcholecystectomy with no evidence of biliary ductal dilation, diffuse fatty liver (unable to sit for US). She has been hypotensive
intermittently with systolic blood pressure as low as 77-78 yesterday.
Pt minimally verbal and unable to get much history from her, obtained from chart.
Past Medical History
Past Medical History: Arrhythmias (a fib), Asthma, CAD (stents), CVA, NIDDM, Renal Failure (esrd on hd) and Other (chronic pain with opioid dependence; GERD; obesity; ? clotting disorder; bedbound with L hemiparesis; vulvar cancer s/p pelvic
radiation; decubiti, PAD)
Past Surgical History: Appendectomy, Cholecystectomy, Gynecological (hysterectomy, vulvetomy) and Other (bilateral LE amputations; tunneled HD catheter)
Social History
Tobacco: Non-Smoker
Alcohol: None
Drug: None
Living: Long-Term ([place])
Family History
Family History: Reviewed & Not Pertinent
Allergies / Home Medications
Allergy/AdvReac Type Severity Reaction Status Date / Time
bacitracin (From Neosporin Allergy Rash/bliste Verified 08/25/24 17:41
([id number])) rs
Cephalosporins Allergy Anaphylaxis Verified 08/25/24 17:41
clindamycin Allergy Shortness Verified 08/25/24 17:41
of
Breath/rash,
wheezing
Fish Containing Products Allergy Shortness Verified 08/25/24 17:41
of
Breath/wheezing
latex Allergy Shortness Verified 08/25/24 17:41
of
Breath/rash,
itching
morphine Allergy hallucinati Verified 08/25/24 17:41
ons
neomycin (From Neosporin Allergy Rash/bliste Verified 08/25/24 17:41
([id number])) rs
Penicillins Allergy Anaphylaxis Verified 08/25/24 17:41
polymyxin B (From Neosporin Allergy Rash/bliste Verified 08/25/24 17:41
([id number])) rs
shellfish derived Allergy Shortness Verified 08/25/24 17:41
of
Breath/wheezing
silicone Allergy Rash/bliste Verified 08/25/24 17:41
rs
strawberry Allergy Itching/whe Verified 08/25/24 17:41
ezing
�Medication �Instructions �Recorded
acetaminophen 325 mg tablet 650 mg PO Q4HPRN PRN mild 07/08/24
(Tylenol) pain/fever
albuterol sulfate 90 mcg/actuation 2 puff inhalation R Q6HPRN PRN SOB 07/08/24
aerosol inhaler
amiodarone 200 mg tablet 200 mg PO DAILY Heart 07/08/24
Disease/Condition
atorvastatin 80 mg tablet (Lipitor) 80 mg PO HS High Cholesterol 07/08/24
clopidogrel 75 mg tablet (Plavix) 75 mg PO DAILY Blood Clot 07/08/24
Prevention/Tx
docusate sodium 100 mg capsule 100 mg PO BID Gastrointestinal 07/08/24
(Colace) Issue
gabapentin 300 mg capsule 300 mg PO DAILY Neurological 07/08/24
Condition
insulin glargine 100 unit/mL (3 7 unit SC HS Diabetes 07/08/24
mL) subcutaneous pen (Lantus
Solostar U-100 Insulin)
lactulose 10 gram/15 mL oral 30 ml PO BIDPRN PRN CONSTIPATION 07/08/24
solution
loperamide 2 mg tablet 2 mg PO DAILYPRN PRN DIARRHEA 07/08/24
metoprolol succinate 25 mg 12.5 mg PO DAILY Blood Pressure 07/08/24
tablet,extended release 24 hr
(Toprol XL)
montelukast 10 mg tablet 10 mg PO HS Allergies 07/08/24
(Singulair)
nystatin 100,000 unit/gram topical 1 applic topical TID 07/08/24
cream
ondansetron HCl 4 mg tablet 4 mg PO Q8HPRN PRN NAUSEA 07/08/24
pantoprazole 40 mg tablet,delayed 40 mg PO DAILY Gastrointestinal 07/08/24
release (Protonix) Issue
polyethylene glycol 3350 17 gram 17 g PO DAILY Gastrointestinal 07/08/24
oral powder packet (Miralax) Issue
sennosides 8.6 mg tablet (senna) 17.2 mg PO BID Gastrointestinal 07/08/24
Issue
simethicone 125 mg chewable tablet 125 mg PO Q6HPRN PRN GAS PAINS 07/08/24
(Gas-X Extra Strength)
diclofenac sodium 1 % topical gel 4 g topical BID Pain 08/16/24
fentanyl 12 mcg/hr transdermal 1 patch transdermal Q72H Pain #5 ea 08/17/24
patch
aspirin 81 mg chewable tablet 81 mg PO DAILY Blood Clot 09/10/24
Prevention/Tx
capsaicin 0.075 % topical cream 1 applic topical BID Pain 09/10/24
glucagon HCl 1 mg solution for 1 mg IM [id number] PRN symptomatic 09/10/24
injection (Glucagon (HCl) hypoglycemia
Emergency Kit)
phenylephrine 0.25 %-pramoxine 1 1 applic SC DAILYPRN PRN rectal 09/10/24
%-glycerin-wh.petrolatum rectal pain after BM
cream (Preparation H Maximum
Strength)
phenylephrine 0.25 %-pramoxine 1 1 applic SC HS 09/10/24
%-glycerin-wh.petrolatum rectal
cream (Preparation H Maximum
Strength)
promethazine 25 mg tablet 25 mg PO Q6HPRN PRN nausea 09/10/24
sulfamethoxazole 400 1 tab PO HS Infection 09/10/24
mg-trimethoprim 80 mg tablet
(Bactrim)
tramadol 50 mg tablet 50 mg PO Q8H PRN moderate pain 09/10/24
venlafaxine 37.5 mg tablet 37.5 mg PO DAILY Mental 09/10/24
Health/Anxiety
Review of Systems
-
Unable to obtain full review of systems at this time due to: Other (pt minimally verbal)
Vital Signs
Temp Pulse Resp BP Pulse Ox
97.8 F 88 15 90/51 98
09/16/24 09:00 09/16/24 15:00 09/16/24 15:00 09/16/24 14:54 09/16/24 13:42
Physical Exam
Exam
General: Well Developed
HEENT: Normocephalic
Respiratory: Clear
Cardiac: S1/S2
GI: Non Distended and Tender (RUQ)
Musculoskeletal: No Clubbing
Skin: Warm
Neuro: AO x 3
Hematologic/Lymphatic: No Lymphadenopathy
Psych: Calm
Results
WBC 15.9 10^3/uL (4.8-10.8) H 09/16/24 17:24
Hgb 9.4 g/dL (12.0-16.0) L 09/16/24 17:24
Hct 31.2 % (37.0-47.0) L 09/16/24 17:24
MCV 82.1 fL (81.0-99.0) 09/16/24 17:24
Plt Count 134 10^3/uL (130-400) 09/16/24 17:24
Absolute Neuts (auto) 12.8 10^3/uL (1.4-6.5) H 09/16/24 07:26
Sodium 138 mmol/L (135-145) 09/16/24 07:26
Potassium 4.5 mmol/L (3.5-5.1) D 09/16/24 07:26
Chloride 107 mmol/L (98-107) 09/16/24 07:26
Carbon Dioxide 22 mmol/L (22-30) 09/16/24 07:26
BUN 4 mg/dl (7-17) L 09/16/24 07:26
Creatinine 1.2 mg/dL (0.6-1.0) H 09/16/24 07:26
Calcium 7.2 mg/dl (8.4-10.2) L 09/16/24 07:26
Total Bilirubin 1.9 mg/dl (0.2-1.3) H D 09/16/24 07:26
AST 3533 U/L (14-36) H* 09/16/24 07:26
ALT 195 U/L (0-35) H 09/16/24 07:26
Alkaline Phosphatase 248 U/L (38-126) H 09/16/24 07:26
Hep Bs Antibody Negative 09/11/24 08:36
Diagnostic Image Results:
Prior GI Procedures:
EGD:
Colonoscopy:
Assessment / Plan
-
64-year-old female presenting with perirectal abscess, ischial and hip wounds status post I&D of abscess and debridement of wounds having acute elevation of LFTs in the setting of hypotension yesterday and now requiring pressors. Also developed
abdominal pain, nausea, vomiting with CT scan being unrevealing. No biliary dilation on CT.
Suspect with such significant rise in AST more c/w shock liver. Given RUQ pain and n/v, biliary in differential but no biliary dilation on CT. Doubtful patient would sit for MRI unable to get US and CT didn't show dilation.
With such signifcant AST >> ALT will check troponin (pain more RUQ then chest pain).
Unclear why acute abd pain/n/v as well.
Contineu antibiotics per ID.
-
-
Thank you for consultation and allowing me to participate in the patient's care. Please call the environmental sustainability manager GI physician during the after hours with any questions or concerns.
[2024-09-16 18:11] LABS: Albumin 2.0 g/dl (3.5-5.0); Alkaline Phosphatase 290 U/L (38-126); Blood Urea Nitrogen 4 mg/dl (7-17); Calcium 7.2 mg/dl (8.4-10.2); Carbon Dioxide 17 mmol/L (22-30); Chloride 105 mmol/L (98-107); Estimated Creatinine Clearance 40 ml/min; Glucose 97 mg/dl (70-99); Potassium 4.4 mmol/L (3.5-5.1); Sodium 137 mmol/L (135-145); Total Protein 5.1 g/dl (6.3-8.2); eGFR 39.16
[2024-09-16 18:13] LABS: Nucleated Red Blood Cells % 0.2 %
[2024-09-16 18:21] LABS: ALT (SGPT) 271 U/L (0-35)
[2024-09-16 18:29] LABS: Glucose - Point of Care 76 mg/dl (70-99)
[2024-09-16 18:44] LABS: AST (SGOT) 5080 U/L (14-36)
[2024-09-16] MEDS: DURAGESIC 12 MCG/HR PATCH 1 PATCH TRANSDERM (18:48)
[2024-09-16] MEDS: REMOVE DURAGESIC PATCH 1 PATCH REMOVE (18:48)
--- NOTE | 2024-09-16 19:03 | PTCARENOTE ---
CT scan completed, labs drawn and sent. Remains on levo 2 mcg via left chest wall PICC line. Map 69. SR on tele. AA responsive, answers simple questions, soft spoken. Hands contracted, skin taut. Dressings on buttocks cdi. Turning q 2.
[2024-09-16] MEDS: COLACE 100 MG PO (19:35)
[2024-09-16] MEDS: MERREM 1000 MG IV (19:37)
[2024-09-16] MEDS: SINGULAIR 10 MG PO (19:38)
[2024-09-16] MEDS: STERILE WATER FOR INJECTION 20 ML IV (19:40)
[2024-09-16 19:48] LABS: Troponin I 0.037 ng/ml
--- NOTE | 2024-09-16 20:09 | W.PN.UPDATE ---
Addendum entered and electronically signed by Shruthi Amador MD 09/16/24 20:11:
Trop very mild elevation will d/w hospitalist
Original Note:
Update Note
Progress Note Update
AST continuing to rise
will check coags and hep studies in am
[2024-09-17] VITALS (89 sets, daily range): BP systolic 65–185; BP diastolic 30–142; BMI 28.3
[2024-09-17 00:45] LABS: Troponin I 0.051 ng/ml
[2024-09-17] MEDS: DEXTROSE 50% SYRINGE 12.5 GRAMS IV (00:45)
[2024-09-17 00:54] LABS: Glucose - Point of Care 47 mg/dl (70-99)
[2024-09-17 01:20] LABS: Glucose - Point of Care 158 mg/dl (70-99)
--- NOTE | 2024-09-17 02:00 | PTCARENOTE ---
Pt received at beginning of shift resting in bed. AAOx1. Appears almost in a catatonic-like state. With repeated attempts pt able to make some eye contact and slightly shake her head yes or no at times. Mostly nonverbal. Will moan intermittently
when turning pt. Received on Levophed gtt which is currently at 6mcq/min for MAP >65. VS currently stable. Afebrile. POX 97% RA. SR/ST on CM. Hypoglycemic at 0000 47. See MAR for amp D50. Repeat accucheck 158. Pt anuric throughout shift. No BM.
Received CHG bath. Linens changed. Wound care completed. Pt remains NPO as ordered. Trending Troponins w/EKG's. Last troponin 0.051. Marlyn BASS made aware. Continuing to monitor. AST elevated at 5080. Dr Amador made aware at beginning of shift as
well as Marlyn BASS. AM labs entered. Rest of assessment as documented. Maintained on Q2hr turns. Will continue to monitor.
--- NOTE | 2024-09-17 02:25 | W.PN.UPDATE ---
Update Note
Progress Note Update
~ 19:00 Critical lab: AST 5080 (previously 3533). TT'd GI, nothing to do at this time. Repeat LFT's ordered for AM.
~ 20:30 Troponin resulted 0.037, EKG NSR, continue to trend. No chest pain, vital signs stable. Possibly elevated d/t liver shock.
~ 01:00 Troponin resulted 0.051, continue to trend. Repeat w/am labs, troponin result 0.060. Discussed with hospitalist, continue to trend.�
Midnight Accu check critical result 47, treated w/1 amp D50 IV, 15 minutes 158, 2 hour recheck 117, repeat 2 hour recheck 119.
Critical value AM labs: INR > 8.0.� TT to GI, Dr. Amador, advised to order NAC gtt for possible liver failure, medication ordered w/assistance from pharmacy.
Requested additional labs be ordered for noon: CBC, LFTs, Coags, DIC panel.
[2024-09-17 03:04] LABS: Glucose - Point of Care 117 mg/dl (70-99)
[2024-09-17 04:40] LABS: Hematocrit 30.6 % (37.0-47.0); Hemoglobin 9.3 g/dL (12.0-16.0); Mean Corp Hgb Conc. 30.4 g/dL (33.0-37.0); Mean Corpuscular Volume 81.8 fL (81.0-99.0); Platelet Count 145 10^3/uL (130-400); Red Cell Dist. Width 18.7 % (11.5-14.5)
[2024-09-17 04:42] LABS: PT 83.6 Sec (11.4-14.6)
[2024-09-17 04:59] LABS: INR > 8.0
[2024-09-17 05:07] LABS: Troponin I 0.060 ng/ml
[2024-09-17 05:11] LABS: Glucose - Point of Care 119 mg/dl (70-99)
[2024-09-17 05:25] LABS: Albumin 1.9 g/dl (3.5-5.0); Alkaline Phosphatase 377 U/L (38-126); Blood Urea Nitrogen 4 mg/dl (7-17); Calcium 7.2 mg/dl (8.4-10.2); Carbon Dioxide 15 mmol/L (22-30); Chloride 105 mmol/L (98-107); Estimated Creatinine Clearance 33 ml/min; Glucose 145 mg/dl (70-99); Potassium 4.6 mmol/L (3.5-5.1); Sodium 136 mmol/L (135-145); Total Protein 5.0 g/dl (6.3-8.2); eGFR 31.46
--- NOTE | 2024-09-17 05:37 | PTCARENOTE ---
Critical INR >8.0 this am. Marlyn BRARNP on floor and made aware. Awaiting AST level this am.
[2024-09-17 05:55] LABS: ALT (SGPT) 280 U/L (0-35)
[2024-09-17 06:16] LABS: Anisocytosis 1+; Normal RBC Morphology No; Nucleated Red Blood Cells % 0.5 %
[2024-09-17 06:20] LABS: Hypochromasia 1+; Ovalocytes 1+; Target Cells 1+; Tear Drop Red Blood Cells Occasional
[2024-09-17 06:21] LABS: Basophilic Stippling Occasional
[2024-09-17 06:22] LABS: Acanthocytes Occasional; Polychromasia Occasional
[2024-09-17] MEDS: LEVOPHED 250 IV ×2 (06:30→12:10)
[2024-09-17 06:56] LABS: AST (SGOT) > 7500 U/L (14-36)
[2024-09-17] MEDS: ACETADOTE 257.8 MG IV (07:28)
[2024-09-17] MEDS: DESENEX/MITRAZOL/ZEASORB 1 APPLIC TOPICAL (07:33)
[2024-09-17] MEDS: COLACE PO (07:33)
[2024-09-17] MEDS: PROTONIX PO (07:33)
[2024-09-17] MEDS: LOW STRENGTH ASPIRIN PO (07:33)
[2024-09-17] MEDS: NEURONTIN PO (07:33)
[2024-09-17] MEDS: TOPROL XL PO (07:33)
[2024-09-17] MEDS: EFFEXOR PO (07:33)
--- NOTE | 2024-09-17 07:37 | PTCARENOTE ---
Dr. Leger made aware that patient is too lethargic to take oral medications and that all AM PO medications are being held. Patient opens eyes to voice and tracks with her eyes, but cannot answer questions. Care ongoing.
--- NOTE | 2024-09-17 08:08 | W.PN.GI.CBS2 ---
Today's Communication / Plan
-
upgrade ICU, critical care, nac gtt, labs
Assessment / Plan
-
64-year-old female presenting with perirectal abscess, ischial and hip wounds status post I&D of abscess and debridement of wounds having acute elevation of LFTs in the setting of hypotension yesterday and now requiring pressors. Also developed
abdominal pain, nausea, vomiting with CT scan being unrevealing. No biliary dilation on CT (unable to get US).
Suspect with such significant rise in AST more c/w shock liver. Given RUQ pain and n/v, biliary in differential but no biliary dilation on CT. Doubtful patient would sit for MRI unable to get US and CT didn't show dilation.
AST continues to rise exponentially out of proportion.
I got called this AM - coags also elevated.
Recommended NAC gtt d/w DICE TABLE OPERATOR siphon operator overnight given coags - ? liver failure.
Close monitoring of labs.
Will do full liver work up.
Check DIC labs as well.
Will give dose of lactulose enema x1 and check ammonia.
Trop mild risk per primary team; also will check CK.
Unclear why acute abd pain/n/v as well. CT unrevealing.
Continue antibiotics per ID.
D/w nursing this AM - felt patient likely needed to be moved to ICU - after I saw her, rapid response called, worsening hypotension.
D/w Dr. Leger.
Planning to do peña CT.
Extensive time spent help managing critically ill patient.
Subjective
Subjective
Date of Service: September 17, 2024
worsening mental status completely not verbal, not responding to painful stimuli
Objective
Data Reviewed
Laboratory Data:
Laboratory Results
PT 83.6 Sec (11.4-14.6) H 09/17/24 04:19
INR > 8.0 H* 09/17/24 04:19
Total Bilirubin 2.1 mg/dl (0.2-1.3) H 09/17/24 04:19
AST > 7500 U/L (14-36) H* 09/17/24 04:19
ALT 280 U/L (0-35) H 09/17/24 04:19
Alkaline Phosphatase 377 U/L (38-126) H 09/17/24 04:19
Vital Signs and I&O:
Vital Signs
Temp Pulse Resp BP Pulse Ox
98.0 F 112 32 106/60 96
09/17/24 07:27 09/17/24 04:30 09/17/24 04:30 09/17/24 04:30 09/17/24 04:01
I&O
09/16/24 09/17/24 09/18/24
06:59 06:59 06:59
Intake Total 120 / 120 48 / 48 257.8 / 257.8
Balance 120 / 120 48 / 48 257.8 / 257.8
Physical Exam
Physical Exam
GI: Non Distended and Non Tender
Neuro: Other (non verbal not responding to painful stimuli)
--- NOTE | 2024-09-17 08:23 | PTCARENOTE ---
A Rapid Response was called on this patient, please see Rapid Response form.
This RN called a Rapid Response at approx 0800 due to patient becoming unresponsive. During AM assessment, patient opened eyes to verbal stimuli, tacked with her eyes, but was nonverbal. Patient quickly became unresponsive to painful stimuli. BP
dropped from 97/64 to 77/48 on 4 mcg/hr of levo. Levo increased by CERAMIC COATER MACHINE. Dr. Leger and ICU physician at bedside. Patient brought to CT scan by CERAMIC COATER MACHINE's.
[2024-09-17 08:47] LABS: Iron 53 ug/dl (37-170)
[2024-09-17 08:56] LABS: Total Iron Binding Capacity 72 ug/dl (265-497)
[2024-09-17] MEDS: SOLU-MEDROL PF 60 MG IV (09:10)
--- NOTE | 2024-09-17 09:24 | CON.INTV ---
Consultation
Consultation Request
Date/Time Consultation Requested: 09/17/24
Date/Time Consultation Performed: 09/17/24
Performing Provider: Phan
Reason for Consultation: Hypotension, LONGTERM
Medical History
-
History of Present Illness:
Patient is a 64-year-old female with previous history of ASCVD, end-stage renal disease on HD, hypertension, diabetes presenting to ER on 09/10/2024 for nonhealing wound of the left hip and ischial areas with new hematochezia. She had been
experiencing increased rectal pain, pain with bowel movements. She has been on oral antibiotics for history of wounds since 09/03/2024. Underwent CT abdomen pelvis demonstrating sacral and hip ulcers without evidence of underlying active
osteomyelitis. She is maintained on IV antibiotics. Underwent excisional debridement of sacral and ischial pressure ulcers on 09/12/2024. Developed worsening nausea/vomiting abdominal pain on 09/16/24 with elevation of LFTs. She was started on
N-acetylcysteine overnight. This AM 09/17/2024 RR was called; patient was profoundly hypotensive in IMU, placed on pressors. She is more lethargic and unresponsive; CT of the head and pelvis repeated are negative. She is transferred to ICU for
further management.
Past Medical History
Past Medical History: Other (see list below)
Social History
Tobacco: Non-smoker
Alcohol: None
Drug: None
Family History
Family History: Reviewed & Not Pertinent
Allergies / Home Medications
Allergies
Allergy/AdvReac Type Severity Reaction Status Date / Time
bacitracin (From Neosporin Allergy Rash/bliste Verified 08/25/24 17:41
([id number])) rs
Cephalosporins Allergy Anaphylaxis Verified 08/25/24 17:41
clindamycin Allergy Shortness Verified 08/25/24 17:41
of
Breath/rash,
wheezing
Fish Containing Products Allergy Shortness Verified 08/25/24 17:41
of
Breath/wheezing
latex Allergy Shortness Verified 08/25/24 17:41
of
Breath/rash,
itching
morphine Allergy hallucinati Verified 08/25/24 17:41
ons
neomycin (From Neosporin Allergy Rash/bliste Verified 08/25/24 17:41
([id number])) rs
Penicillins Allergy Anaphylaxis Verified 08/25/24 17:41
polymyxin B (From Neosporin Allergy Rash/bliste Verified 08/25/24 17:41
([id number])) rs
shellfish derived Allergy Shortness Verified 08/25/24 17:41
of
Breath/wheezing
silicone Allergy Rash/bliste Verified 08/25/24 17:41
rs
strawberry Allergy Itching/whe Verified 08/25/24 17:41
ezing
Home Medications
�Medication �Instructions �Recorded �Confirmed �Last Taken �Type
acetaminophen 325 mg tablet 650 mg PO Q4HPRN PRN mild 07/08/24 09/10/24 07/31/24 History
(Tylenol) pain/fever
albuterol sulfate 90 mcg/actuation 2 puff inhalation R Q6HPRN PRN SOB 07/08/24 09/10/24 08/18/24 History
aerosol inhaler
amiodarone 200 mg tablet 200 mg PO DAILY Heart 07/08/24 09/10/24 09/10/24 08:10 History
Disease/Condition
atorvastatin 80 mg tablet (Lipitor) 80 mg PO HS High Cholesterol 07/08/24 09/10/24 09/09/24 20:00 History
clopidogrel 75 mg tablet (Plavix) 75 mg PO DAILY Blood Clot 07/08/24 09/10/24 09/10/24 08:10 History
Prevention/Tx
docusate sodium 100 mg capsule 100 mg PO BID Gastrointestinal 07/08/24 09/10/24 09/10/24 07:00 History
(Colace) Issue
gabapentin 300 mg capsule 300 mg PO DAILY Neurological 07/08/24 09/10/24 09/10/24 08:10 History
Condition
insulin glargine 100 unit/mL (3 7 unit SC HS Diabetes 07/08/24 09/10/24 09/09/24 History
mL) subcutaneous pen (Lantus
Solostar U-100 Insulin)
lactulose 10 gram/15 mL oral 30 ml PO BIDPRN PRN CONSTIPATION 07/08/24 09/10/24 07/29/24 History
solution
loperamide 2 mg tablet 2 mg PO DAILYPRN PRN DIARRHEA 07/08/24 09/10/24 08/21/24 History
metoprolol succinate 25 mg 12.5 mg PO DAILY Blood Pressure 07/08/24 09/10/24 09/10/24 08:10 History
tablet,extended release 24 hr
(Toprol XL)
montelukast 10 mg tablet 10 mg PO HS Allergies 07/08/24 09/10/24 09/09/24 History
(Singulair)
nystatin 100,000 unit/gram topical 1 applic topical TID 07/08/24 09/10/24 09/10/24 07:00 History
cream
ondansetron HCl 4 mg tablet 4 mg PO Q8HPRN PRN NAUSEA 07/08/24 09/10/24 08/23/24 History
pantoprazole 40 mg tablet,delayed 40 mg PO DAILY Gastrointestinal 07/08/24 09/10/24 09/10/24 08:10 History
release (Protonix) Issue
polyethylene glycol 3350 17 gram 17 g PO DAILY Gastrointestinal 07/08/24 09/10/24 09/10/24 08:15 History
oral powder packet (Miralax) Issue
sennosides 8.6 mg tablet (senna) 17.2 mg PO BID Gastrointestinal 07/08/24 09/10/24 09/10/24 08:15 History
Issue
simethicone 125 mg chewable tablet 125 mg PO Q6HPRN PRN GAS PAINS 07/08/24 09/10/24 Unknown History
(Gas-X Extra Strength)
diclofenac sodium 1 % topical gel 4 g topical BID Pain 08/16/24 09/10/24 09/10/24 08:15 History
fentanyl 12 mcg/hr transdermal 1 patch transdermal Q72H Pain #5 ea 08/17/24 09/10/24 09/08/24 05:35 Rx
patch
aspirin 81 mg chewable tablet 81 mg PO DAILY Blood Clot 09/10/24 09/10/24 09/10/24 08:15 History
Prevention/Tx
capsaicin 0.075 % topical cream 1 applic topical BID Pain 09/10/24 09/10/24 09/10/24 08:15 History
glucagon HCl 1 mg solution for 1 mg IM [id number] PRN symptomatic 09/10/24 09/10/24 Unknown History
injection (Glucagon (HCl) hypoglycemia
Emergency Kit)
phenylephrine 0.25 %-pramoxine 1 1 applic SD DAILYPRN PRN rectal 09/10/24 09/10/24 09/09/24 20:00 History
%-glycerin-wh.petrolatum rectal pain after BM
cream (Preparation H Maximum
Strength)
phenylephrine 0.25 %-pramoxine 1 1 applic SD HS 09/10/24 09/10/24 09/09/24 20:00 History
%-glycerin-wh.petrolatum rectal
cream (Preparation H Maximum
Strength)
promethazine 25 mg tablet 25 mg PO Q6HPRN PRN nausea 09/10/24 09/10/24 09/08/24 History
sulfamethoxazole 400 1 tab PO HS Infection 09/10/24 09/10/24 09/09/24 History
mg-trimethoprim 80 mg tablet
(Bactrim)
tramadol 50 mg tablet 50 mg PO Q8H PRN moderate pain 09/10/24 09/10/24 09/08/24 09:45 History
venlafaxine 37.5 mg tablet 37.5 mg PO DAILY Mental 09/10/24 09/10/24 09/10/24 08:10 History
Health/Anxiety
Review of Systems
-
Unable to Obtain full review of systems at this time due to: Acuity
History Source: Transfer Record
Vitals / Labs / Diagnostic Testing
Vital Signs
Temp Pulse Resp BP Pulse Ox
99.7 F 130 21 87/74 100
09/17/24 09:10 09/17/24 09:15 09/17/24 09:15 09/17/24 09:15 09/17/24 09:01
Laboratory Results
09/17/24
04:19
PT 83.6 H
INR > 8.0 H*
Microbiology
09/12/24 15:30 Abscess Anaerobic Culture - Preliminary
Culture pending. Anaerobic cultures are examined after 3
days incubation. Additional information to follow.
09/12/24 15:30 Abscess Wound Culture - Preliminary
Proteus mirabilis
Escherichia coli - ESBL
Pseudomonas aeruginosa
Escherichia coli
Enterococcus species
Streptococcus species
09/12/24 15:30 Abscess Gram Stain - Preliminary
Diagnostic Testing:
Physical Exam
-
HEENT: Normocephalic, Anicteric and Moist Mucous Membranes
Cardiovascular: S1/S2, Regular Rhythm and Other (B/l BKA)
Respiratory: Clear and Non-Labored Respirations
GI: Soft, Non Distended and Non Tender
Neurology: Other (Lethargic, minimally responsive)
Skin: Warm, Dry and Other (Rash noted under breasts, pale)
General: Comfortable and Other (NAD)
Assessment
-
Patient is a 64-year-old female with previous history of ASCVD, end-stage renal disease on HD, hypertension, diabetes presenting to ER on 09/10/2024 for nonhealing wound of the left hip and ischial areas with new hematochezia. She had been
experiencing increased rectal pain, pain with bowel movements. She has been on oral antibiotics for history of wounds since 09/03/2024. Underwent CT abdomen pelvis demonstrating sacral and hip ulcers without evidence of underlying active
osteomyelitis. She is maintained on IV antibiotics. Underwent excisional debridement of sacral and ischial pressure ulcers on 09/12/2024. Developed worsening nausea/vomiting abdominal pain on 09/16/24 with elevation of LFTs. She was started on
N-acetylcysteine overnight. This AM 09/17/2024 RR was called; patient was profoundly hypotensive in IMU, placed on pressors. She is more lethargic and unresponsive; CT of the head and pelvis repeated are negative. She is transferred to ICU for
further management.
Hypotensive, on pressors
Fulminant hepatic/liver failure s/p NAC, ^^AST>ALT
Unresponsive, suspect TME but unclear cause
Acute on chronic sacral/ischial ulcers s/p debridement 09/12/2024
Acute on chronic anemia
Leukocytosis
Supratherapeutic INR indicating acute coagulopathy
Metabolic acidosis, likely sepsis
Hyperglycemia
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
CVA x 5
PAD s/p Bilateral BKA
CAD s/p PTCA with Stent x 2
CVA w/ Hemiplegia
IDDM
ESRD on HD
Appendectomy
Cholecystectomy/ERCP x 2
HLD
HTN
GERD
Obesity
Uterine Cancer / Vulvar Cancer s/p Hysterectomy / Vulvectomy, Chemo, XRT
Asthma
? Clotting Disorder
Right IJ Tunneled HD Catheter (last changed in June 2024)
Appendectomy
Plan
Very extensive neuro history, CVA x 5/wheelchair bound, PAD s/p BL BKA
Unknown baseline MS --she is now minimally responsive
HCT x 2 on this admission negative, may consider Neuro eval if ongoing
Pain/sedation: PRN, avoid if possible
RASS goals: 0
Hemodynamically unstable, requiring pressors.
Requiring pressors: Levo @10, add vasopressin
Cardiac history reviewed--HTN, CAD s/p PTCA, PAD s/p BKA, HTN
No prior ECHO noted, will obtain new study given hypotension--etiology could be sepsis, or due to NAC induction
Hold home meds
Monitor on telemetry
Oxygen needs: on RA, no O2 needed
Prior history of lung disease: asthma, on albuterol PRN which can be resumed
No evidence of pulmonary issue, not wheezing/bronchospastic
Supplemental O2 as indicated to maintain sats > 89%
CHEST CT reviewed indicating no PE in past, severe CAD but no acute lung path
Family wants her to remain Full Code
Liver enzymes ^^ unclear cause, NAC started--will add IV steroids
GI consult obtained, DIC labs and other w/u pending
CT AP negative x 2
NPO, resume diet when able/MS improves
Loss Prevention Consultant recommendations
Aspiration precautions, HOB > 30 degrees
Speech therapy eval can be considered if at elevated risk
GI prophylaxis if indicated for mechanical ventilation >48 hours, prior history of GERD, stress ulcer formation in the critically ill
ESRD on HD
Renal following for further HD management
Follow urine output, critical I/Os
Replete electrolytes as needed
Acid/base status: met acid, replete via HD
Fever and increased WBC on presentation, suspect underlying sepsis from wounds
s/p debridement 09/12/2024
ID following
Started on empiric antibiotics-- plan for PICC placement and prolonged IV antibiotics
Cultures [id number] in wounds
Follow fever trend, WBC count
History of potential coagulating/clotting disorder via records
Liver enzymes elevated, supratherapeutic INR
DIC labs are pending
No overt signs of bleeding
May consider heme consult if no other etiology is noted
DVT prophylaxis as assessed based on risk, including mechanical SCDs
Can transfuse if indicated for Hb <7, plt < 10
No prior h/o thyroid disease
H/o diabetes, can continue on home meds, SS for coverage
HbA1c 4.8
Overall prognosis is poor in this patient who has suffered numerous CVAs and has BL BKA. QoL exceedingly poor. Family wants full measures, continue discussion is recommended if she should continue to deteriorate.
Diagnostic Data
Chest X-Ray:
CT Scan: AP 09/17/24- Sacral decubitus ulceration inferior to the coccyx with foci of soft tissue gas in the presacral space adjacent to the rectum. Rectal wall thickening indicating proctitis. No significant change compared to the recent CT
abdomen/pelvis performed one day earlier. Other decubitus ulcerations at the level of the left ischial tuberosity and bilateral greater femoral trochanters.
09/16/24- Diffuse circumferential rectal wall thickening suggesting proctitis. There is extraluminal air and soft tissue density posterior to the rectum extending to the presacral region. Interval increase in air density wound extending to the
posterior margin of the perirectal region, just inferior to the coccyx, possibly from debridement. Slight interval increase in air density extending to the posterior margin initial tuberosity. No convincing evidence for osteomyelitis. Status post
cholecystectomy. Diffuse fatty infiltration the liver. Moderate bilateral subcutaneous edema.
HCT 09/17/24- Mild age-related parenchymal atrophy. No intra- or extra-axial mass, hemorrhage, or fluid collection. Moderate subcortical, deep, and periventricular white matter low-attenuation, compatible with changes of chronic small vessel ischemic
disease. Hyperostosis frontalis interna. The imaged sinuses are clear. Unchanged complete opacification of the left mastoid air cells. No acute intracranial abnormality.
CHEST CT 08/25/24- No evidence for an acute pulmonary thromboembolism. No CT correlate for the opacity described on the chest radiograph, which was likely artifactual, possibly secondary to an overlying skin fold.
Severe coronary artery calcifications. Please correlate with symptoms of and risk factors for coronary artery disease, with further workup as clinically appropriate.
Echo:
PFT's:
Reports and relevant images were personally reviewed.
Critical Care time 75 mins -- The patient is admitted for acute critical illness for the treatment of vital organ failure and/or prevention of further life-threatening conditions. Total care includes time spent in review of history, physical exam,
medications, hemodynamic/ventilator parameters, laboratory data, imaging and discussion with house staff, pharmacy, respiratory therapy, hris specialist, and nursing. I was present during rapid response.
[2024-09-17 09:30] LABS: B.E. -8.7 mmol/L; O2 Saturation % 97.0 % (94-98); PCO2 24 mmHg (32-35); PO2 89 mmHg (83-108)
[2024-09-17 09:31] LABS: HCO3 14.9 mmol/L (21-28)
--- NOTE | 2024-09-17 10:00 | PTCARENOTE ---
Assumed care of patient, patient remains lethargic, not speaking. up on levophed demand, vasopressin added, administering 2nd bag of acetylcysteine. CT of head and abdomen/pelvis complete. Labs sent. ongoing supportive care.
--- NOTE | 2024-09-17 10:03 | W.PN.ID1 ---
Date of Service
Date of Service: September 17, 2024
Today's Communication
Decrease meropenem dose to 500m q24.
Assessment / Plan
# Acute hepatitis: AST now> 7500, AST 280, T. bili 2.1
# Acute coagulopathy
# Acute leukocytosis, worse
# Abrupt change in mental status
- Head CT no acute pathology
- CT a/p x 2 no acute liver pathology
- Amiodarone, atorvastatin held per Hospitalist
- Possible acetaminophen liver toxicity per hospitalist
- GI on case
- Prognosis guarded
# Coccyx abscess and osteo
# Chronic osteo of left hip and ischium
# Allergy to PCN, cephalosporin, clinda
# ESRD on HD
- Appreciate Colorectal and Surgery. 09/12 s/p I+D coccyx abscess, (probed to bone/osteo); I+D of bilaterall hip wounds and left ischial wound.
OR abscess cx: ESBL-Ecoli, Proteus, Pseudomonas, E. coli, Enterococcus, Strep
- Reduce meropenem 1g IV q24h to 500mg IV q24h x 6 weeks through 10/21/24.
- Tunnelled PICC in place.
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
DM2
ESRD on HD via tunelled catheter
HTN
CVA x 5 with left hemiparesis
CAD s/p stents x 2
PAD s/p bilateral BKA
pAfib
asthma
chronic pain syndrome
Hx uterine/vulvar CA s/p hysterectomy/vulvectomy, Chemo, XRT
Cholecystectomy
Chief Complaint
-: Other (Bon[place]-rectal abscess)
Subjective / Review of Systems
Events noted overnight - pt unresponsive.
Vital Signs / Physical Exam
Vital Signs
Vital Signs
Temp Pulse Resp BP Pulse Ox
99.7 F 130 21 87/74 100
09/17/24 09:10 09/17/24 09:15 09/17/24 09:15 09/17/24 09:15 09/17/24 09:01
Physical Exam
Constitutional: Acutely Ill
Eyes: Other (+ icterus)
Cardiovascular: S1/S2 (tachycardic)
Pulmonary: Clear
Objective Data
Lab Data
PT 83.6 Sec (11.4-14.6) H 09/17/24 04:19
INR > 8.0 H* 09/17/24 04:19
Estimated Creat Clear 33 ml/min 09/17/24 04:19
Total Bilirubin 2.1 mg/dl (0.2-1.3) H 09/17/24 04:19
AST > 7500 U/L (14-36) H* 09/17/24 04:19
ALT 280 U/L (0-35) H 09/17/24 04:19
Alkaline Phosphatase 377 U/L (38-126) H 09/17/24 04:19
Most recent labs reviewed.
Micro Results:
09/12/24 15:30 Anaerobic Culture - Preliminary
Abscess Culture pending. Anaerobic cultures are examined after 3
days incubation. Additional information to follow.
09/12/24 15:30 Wound Culture - Preliminary
Abscess Proteus mirabilis
Escherichia coli - ESBL
Pseudomonas aeruginosa
Escherichia coli
Enterococcus species
Streptococcus species
Gram Stain - Preliminary
09/10/24 15:07 Wound Culture - Final
Abscess Proteus mirabilis
Escherichia coli - ESBL
Pseudomonas aeruginosa
Gram Stain - Final
09/11/24 03:18 MRSA Screen - Final
Nose No Methicillin Resistant Staphylococcus aureus isolated.
09/17/24 CT a/p: Surgically absent gallbladder. The unenhanced liver, bile ducts, pancreas, spleen, and bilateral adrenal glands are unremarkable. Sacral decubitus ulceration inferior to the coccyx with foci of soft tissue gas in the presacral space
adjacent to the rectum. Rectal wall thickening indicating proctitis. No significant change compared to the recent CT abdomen/pelvis performed one day earlier. Other decubitus ulcerations at the level of the left ischial tuberosity and bilateral
greater femoral trochanters.
09/17/24 CT head: No acute intracranial abnormality
09/10/24 CT Pelvis: Left sacral/hip soft tissue ulcers without definite CT evidence for underlying active osteomyelitis. Probable components of chronic osteomyelitis involving the left ischial tuberosity and proximal left femur. Diffuse rectal wall
thickening suggesting proctitis. Large adjacent perirectal abscess as described. Probable associated chronic osteomyelitis of the distal coccygeal segment. Reactive cystitis.
Care Review
Plan reviewed with: Physician (Drs. Leger and Marjorie)
[2024-09-17] MEDS: ACETADOTE IV (10:04)
[2024-09-17] MEDS: STERILE WATER FOR INJECTION 2 ML INJ (10:05)
[2024-09-17 10:14] LABS: Ammonia 15 umol/L (9-30)
[2024-09-17] MEDS: ACETADOTE 519.3 MG IV (10:20)
[2024-09-17 10:23] LABS: Acetaminophen < 10 ug/ml (10-30)
[2024-09-17] MEDS: PITRESSIN 100 IV (10:26)
[2024-09-17 10:53] LABS: Ferritin > 10000.0 ng/ml (11.1-264.0)
--- NOTE | 2024-09-17 11:03 | W.PN.NEPH.PH ---
Today's Communication / Plan
-
see plan
Assessment/Plan
-
IMP:
ESRD dialysis since December 2023
Right IJ tunneled dialysis catheter
Bilateral hip wounds
Insulin-dependent diabetes mellitus
Rectal bleed
Ambulatory dysfunction
Hyperlipidemia
GERD
Plan:
noted events, on high dose norepi for hypotension
RR this am, remains unresponsive
worsening met acidosis, high lactate
LFTs remain significantly elevated-?shock liver
coagulopathy INR >8, pending DIC panel
steroids and NAC started
antibiotics per ID
HD on Wednesday depend on clinical course as she seem to have guarded prognosis
-
-
Date of Service: September 17, 2024
CC / HPI / ROS
-
Chief Complaint:
ESRD
History of Present Illness:
on pressors for hypotension
WBC up at 17.5 and LFts up
moved to ICU this am after RR
Ph 7.4, [place] kay 9.4
Review of Systems:
AMS, not responsive
Labs
-
Labs:
eGFR 31.46 09/17/24 04:19
Physical Exam
-
Vital Signs:
Vital Signs
Temp Pulse Resp BP Pulse Ox
99.7 F 130 21 87/74 100
09/17/24 09:10 09/17/24 09:15 09/17/24 09:15 09/17/24 09:15 09/17/24 09:01
Cardiovascular:: Regular rate and rhythm (tachy)
Respiratory:: Bilateral: CTA (decreased BS)
Abdomen:: Nontender and Soft
[place] Catheter: No
Other Findings::
bilat BKA
[2024-09-17] MEDS: HEPARIN SC (11:06)
[2024-09-17 11:25] LABS: LDH 4673 U/L (120-246)
[2024-09-17] MEDS: PROTONIX IV 40 MG IV (12:11)
[2024-09-17] MEDS: NSS (PRESERVATIVE FREE) 10 ML IV (12:11)
[2024-09-17 12:36] LABS: Glucose - Point of Care 72 mg/dl (70-99)
--- NOTE | 2024-09-17 12:36 | W.PN.HOSP.TC ---
Addendum entered and electronically signed by Cody Leger MD 09/17/24 13:50:
Elevated troponin likely secondary to nonischemic myocardial injury secondary to shock
Monitor
Original Note:
Today's Communication/Plan
-
Monitor vital signs see plan
Maintain pressors as tolerated
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
Continue with current management
Prognosis guarded
Monitor LFTs
Discussed with sons
Assessment / Plan
Assessment / Plan
General: Lethargic, nonconversant
HEENT: Anicteric and Moist mucous membranes
Respiratory: Clear and Non Labored Respirations
Cardiac: S1/S2 and Regular Rhythm
GI: Soft and Tender
Skin: Warm, Dry and Rash (Intertrigo / Candidiasis of bilateral breasts)
Neuro: Sedated
Hospital course:
64-year-old female with history of CVA x 5, CAD, PAD, bedbound state due to chronic left hemiparesis, paroxysmal atrial fibrillation, essential hypertension, diabetes mellitus, chronic pain with opioid dependence, GERD, obesity, uterine
cancer/vulvar cancer status postsurgery, chemotherapy, radiation, asthma, cholecystectomy, sacral wound, left hip wound came to the hospital with sacral abscess. Patient required I&D. Cultures was positive for multiple organism and infectious
disease finalize antibiotics to meropenem. While patient was in the hospital she went into shock with fulminant liver failure. Patient was then transferred to ICU for further management.
Sacral abscess
- Colorectal surgery and general surgery following, 09/12 s/p I+D coccyx abscess, (probed to bone/osteo); I+D of bilateral hip wounds and left ischial wound.
Hold Plavix for now in case need any procedure
ID following
Plan for meropenem on discharge. s/p IR tunneled line 09/15/2024. ID recommend 6 weeks of meropenem through 10/21/24
Overnight 09/15 -09/16, developed abdominal pain nausea and vomiting along with hypotension
History of cholecystectomy, significant abdominal pain on exam
Could not tolerate ultrasound abdomen, CT abdomen/pelvis without obstructive pathology
GI following
Overnight continue to get worse and is now lethargic. 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
CT head without any hemorrhage. CT abdomen/pelvis unchanged from previous. GI started NAC protocol. Added steroids
Currently on nasal cannula, discussed initially this morning with family and they wanted full code however later on family decided on DNR. Prognosis appears guarded
Does not appear she will be a candidate for liver
Acute shock with acute liver injury
Fulminant hepatic/liver failure on NAC
Continue to trend LFTs
ABG noted with pH 7.4, PCO2 24
DIC labs pending
Tylenol level less than 10
NPO
Severe coagulopathy secondary to liver failure
Lactic acidosis likely secondary to poor clearance
Infected Left Hip and Ischial Wounds
-General Surgery following; s/p debridment
-Continue Wound Care
-Prior culture with Proteus and ESBL E.coli
-Continue meropenem
Pancytopenia
Monitor
Hyponatremia
Monitor
Hypokalemia
Managed with dialysis
Monitor
Thrombocytopenia
Monitor
Hypocalcemia
Managed with dialysis, no HD today, monitor
Intertrigo / Candidiasis of Bilateral Breast Folds
-Continue miconazole powder
ESRD on HD
- Nephrology following, HD per nephrology
ASCVD
Hold Plavix
-Continue aspirin
Diabetes Mellitus, Type II
periods of hypoglycemia this hospitalization
Hold Lantus
-Monitor sugars and continue coverage insulin
Paroxysmal Atrial Fibrillation
- Hold metoprolol due to blood pressure, hold amiodarone due to elevated LFTs
CVA x 5 with left hemiparesis
CAD status post stents
PAD s/p bilateral BKA
Appendectomy
Cholecystectomy/ERCP x 2
Essential Hypertension
- Hold metoprolol given shock
Hyperlipidemia
- Hold Lipitor given liver failure
Chronic Pain with Opioid Dependence
- Hold fentanyl patch given poor mental status
Hx uterine/vulvar CA s/p hysterectomy/vulvectomy, Chemo, XRT
DVT proph: Hold pharmacological prophylaxis given INR greater than 8
Code Status: DNR
Total Critical Care Time__53___ minutes. I was immediately available to the patient and staff. I personally examined, reviewed labs, diagnostic images/reports, interpretations, treatment plans, discussed patient care with other providers and
family or caregivers (if patient is unable to make decisions), entered orders as appropriate and documented the medical record.
Anticipated Discharge: > 48 hours
Subjective/Interval History
-
Date of Service: September 17, 2024
Lethargic
Objective Data
-
Labs:
Laboratory Results
09/17/24 09/17/24 09/17/24
04:19 08:19 12:00
WBC 17.5 H Pending
Hgb 9.3 L Pending
Hct 30.6 L Pending
Plt Count 145 Pending
PT 83.6 H Pending
INR > 8.0 H* Pending
APTT Pending
HCO3 14.9 L*
Sodium 136 Pending
Potassium 4.6 Pending
Chloride 105 Pending
Carbon Dioxide 15 L Pending
BUN 4 L Pending
Creatinine 1.8 H Pending
Glucose 145 H Pending
Calcium 7.2 L Pending
Total Bilirubin 2.1 H Pending
AST > 7500 H* Pending
ALT 280 H Pending
Alkaline Phosphatase 377 H Pending
Vital Signs:
Vital Signs
Temp Pulse Resp BP Pulse Ox
98.9 F 133 24 111/69 99
09/17/24 12:00 09/17/24 12:15 09/17/24 12:15 09/17/24 12:15 09/17/24 12:15
I&O
09/16/24 09/17/24 09/18/24
06:59 06:59 06:59
Intake Total 120 / 120 48 / 838.4 / 838.4
Balance 120 / 120 48 / 48 838.4 / 838.4
[2024-09-17 13:04] LABS: Hematocrit 30.0 % (37.0-47.0); Hemoglobin 9.1 g/dL (12.0-16.0); Mean Corp Hgb Conc. 30.3 g/dL (33.0-37.0); Mean Corpuscular Volume 82.4 fL (81.0-99.0); Platelet Count 135 10^3/uL (130-400); Red Cell Dist. Width 19.0 % (11.5-14.5)
[2024-09-17 13:24] LABS: Nucleated Red Blood Cells % 1.6 %
[2024-09-17 13:29] LABS: Albumin 1.9 g/dl (3.5-5.0); Alkaline Phosphatase 85 U/L (38-126); Blood Urea Nitrogen 5 mg/dl (7-17); Calcium 7.1 mg/dl (8.4-10.2); Carbon Dioxide 6 mmol/L (22-30); Chloride 104 mmol/L (98-107); Estimated Creatinine Clearance 33 ml/min; Glucose 117 mg/dl (70-99); Potassium 4.8 mmol/L (3.5-5.1); Sodium 134 mmol/L (135-145); Total Protein 5.0 g/dl (6.3-8.2); eGFR 31.46
[2024-09-17 13:41] LABS: ALT (SGPT) 245 U/L (0-35)
[2024-09-17 13:48] LABS: Fibrinogen 188 MG/DL (199-459)
[2024-09-17 13:49] LABS: APTT 94.8 Sec (23.4-35.0)
[2024-09-17 13:50] LABS: D-Dimer 3.91 ug/mlFEU (0.00-0.50)
[2024-09-17] MEDS: SODIUM BICARBONATE 50 MEQ IV ×2 (13:56→14:07)
[2024-09-17] MEDS: ACETADOTE 1054 MG IV (14:00)
[2024-09-17 14:01] LABS: AST (SGOT) 5368 U/L (14-36)
--- NOTE | 2024-09-17 14:11 | CHAP ---
Called by staff for Elizabeth and family. She was resting, nonverbal. Son, Alessio, shared background about his mother, who has Mosque yan. 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 The family requested
prayers for her, which were offered. Emotional and spiritual support provided, along with a prayer blanket in her favorite color. Assurance given of our on-going availability.
[2024-09-17 14:16] LABS: PT > 100 Sec (11.4-14.6)
[2024-09-17 14:17] LABS: INR > 8.0
--- NOTE | 2024-09-17 14:26 | W.PN.UPDATE ---
Update Note
Progress Note Update
Update:
Profound acidosis noted on BMP, remains hypotensive on pressors
Will give 2 amps of bicarb
Do not see she is a candidate for HD given instability, would not tolerate
Updated son that she may be declining, he is aware and we will add dilaudid pushes for comfort
Other son was not prepared for w/d of care as of yet
Family at bedside
Reviewed with [facility]
[2024-09-17 16:24] LABS: Hepatitis C Antibody Negative (Negative)
--- NOTE | 2024-09-17 16:25 | W.PN.UPDATE ---
Update Note
Progress Note Update
Patient continues to deteriorate. Patient's son Kj has decided to transition his mother to comfort care. Life-sustaining interventions have been discontinued. Comfort measures have been initiated.
--- NOTE | 2024-09-17 16:33 | PTCARENOTE ---
Patient's family has decided on comfort care. levophed and vaso stopped. Dr. Bonner has spoken with son Kj, orders placed.
[2024-09-17] MEDS: MORPHINE SULFATE 1 MG IV (16:48)
--- NOTE | 2024-09-17 17:41 | W.PN.DEATH ---
Pronouncement of
-
Called to see patient to pronounce.
No spontaneous heart tones or respirations noted.
Patient not responsive to verbal stimuli.
Patient is pronounced .
Time of : 17:28
Date of : 09/17/24
Cause of : Septic shock
Family Notified: Yes
--- NOTE | 2024-09-17 17:41 | W.DCSUMMARY ---
Discharge Summary
Discharge Data
Date of Admission: 09/10/24
Date of Discharge: 09/17/24
Total time spent discharging patient (in min): 40
-
Pending Results: No
Hospital Course
64-year-old female with history of CVA x 5, CAD, PAD, bedbound state due to chronic left hemiparesis, paroxysmal atrial fibrillation, essential hypertension, diabetes mellitus, chronic pain with opioid dependence, GERD, obesity, uterine
cancer/vulvar cancer status postsurgery, chemotherapy, radiation, asthma, cholecystectomy, sacral wound, left hip wound came to the hospital with sacral abscess. Patient required I&D. Cultures was positive for multiple organism and infectious
disease finalize antibiotics to meropenem. While patient was in the hospital she went into shock with fulminant liver failure. Patient was then transferred to ICU for further management. Ultimately decision was made by family to transition
patient to comfort care. She peacefully with family at bedside at 5:28 PM on 09/17/2024 due to septic shock.
Discharge Plan
-
Patient Disposition:
Date/Time
Date/Time: 09/17/24 17:28
Discharge Date and Time
Print Language: KHMER
--- NOTE | 2024-09-17 18:00 | PTCARENOTE ---
Patient peacefully with sons at bedside. physician at bedside to pronounce, gift of lift notified. post mortem care to be completed.
[2024-09-18 08:40] LABS: Glucose - Point of Care 117 mg/dl (70-99)
--- NOTE | 2024-09-18 09:06 | CM ---
Patient on 09/17/24 @ 17:28.
[2024-09-19 18:05] LABS: ANA, IgG Reflex to HEp-2 None Detected (None Detected)
[2024-09-19 22:28] LABS: LKM-1 Ab (IgG) 1.5 U (0.0-24.9); Soluble Liver Antigen Ab 3.7 U (0.0-24.9)
[2024-09-19 22:58] LABS: Mitochondrial M2 Ab, IgG 2.3 Units (0.0-24.9)
== END 2024-09-17 17:28 | disposition expired | DRG 463 ==
LOC: ICU 18:22
PROVIDERS: Internal Medicine Nephrology; Nurse Practitioner Family; Physician Assistant Medical; Radiology Diagnostic Radiology; Specialist; Surgery; ADMITTING PHYSICIAN Hospitalist; ATTENDING PHYSICIAN Internal Medicine; CONSULT PHYSICIAN Internal Medicine; CONSULT PHYSICIAN Internal Medicine Gastroenterology; CONSULT PHYSICIAN Surgery; EMERGENCY PHYSICIAN Emergency Medicine; FAMILY PHYSICIAN Family Medicine; OTHER PHYSICIAN Hospitalist; OTHER PHYSICIAN Internal Medicine Infectious Disease; OTHER PHYSICIAN Surgery
PROC: 5A1D70Z Performance of Urinary Filtration, Intermittent, Less than 6 Hours Per Day (ICD-10-PCS; 2024-09-11)
PROC: 0QDS0ZZ Extraction of Coccyx, Open Approach (ICD-10-PCS; 2024-09-12)
PROC: 0JDC0ZZ Extraction of Pelvic Region Subcutaneous Tissue and Fascia, Open Approach (ICD-10-PCS; 2024-09-12)
PROC: 0JBC0ZZ Excision of Pelvic Region Subcutaneous Tissue and Fascia, Open Approach (ICD-10-PCS; 2024-09-12)
PROC: 0W9J0ZZ Drainage of Pelvic Cavity, Open Approach (ICD-10-PCS; 2024-09-12)
PROC: 0DJD8ZZ Inspection of Lower Intestinal Tract, Via Natural or Artificial Opening Endoscopic (ICD-10-PCS; 2024-09-12)
PROC: 0QB30ZZ Excision of Left Pelvic Bone, Open Approach (ICD-10-PCS; 2024-09-14)
PROC: B544ZZA Ultrasonography of Left Jugular Veins, Guidance (ICD-10-PCS; 2024-09-15)
PROC: 0JH63XZ Insertion of Tunneled Vascular Access Device into Chest Subcutaneous Tissue and Fascia, Percutaneous Approach (ICD-10-PCS; 2024-09-15)
PROC: 05HN33Z Insertion of Infusion Device into Left Internal Jugular Vein, Percutaneous Approach (ICD-10-PCS; 2024-09-15)
DX: M46.28 Osteomyelitis of vertebra, sacral and sacrococcygeal region (principal); A41.9 Sepsis, unspecified organism; L89.154 Pressure ulcer of sacral region, stage 4; L89.223 Pressure ulcer of left hip, stage 3; L89.213 Pressure ulcer of right hip, stage 3; R65.21 Severe sepsis with septic shock; N18.6 End stage renal disease; F11.20 Opioid dependence, uncomplicated; I69.354 Hemiplegia and hemiparesis following cerebral infarction affecting left non-dominant side; K61.2 Anorectal abscess; I5A Non-ischemic myocardial injury (non-traumatic); I12.0 Hypertensive chronic kidney disease with stage 5 chronic kidney disease or end stage renal disease; D68.9 Coagulation defect, unspecified; E87.20 Acidosis, unspecified; M86.652 Other chronic osteomyelitis, left thigh; K72.90 Hepatic failure, unspecified without coma; G89.4 Chronic pain syndrome; I25.10 Atherosclerotic heart disease of native coronary artery without angina pectoris; K21.9 Gastro-esophageal reflux disease without esophagitis; Z74.01 Bed confinement status; J45.909 Unspecified asthma, uncomplicated; E66.9 Obesity, unspecified; I48.0 Paroxysmal atrial fibrillation; L89.329 Pressure ulcer of left buttock, unspecified stage; Z85.44 Personal history of malignant neoplasm of other female genital organs; Z85.42 Personal history of malignant neoplasm of other parts of uterus; E11.22 Type 2 diabetes mellitus with diabetic chronic kidney disease; E11.69 Type 2 diabetes mellitus with other specified complication; E11.51 Type 2 diabetes mellitus with diabetic peripheral angiopathy without gangrene; Z89.511 Acquired absence of right leg below knee; Z89.512 Acquired absence of left leg below knee; Z95.5 Presence of coronary angioplasty implant and graft; Z82.5 Family history of asthma and other chronic lower respiratory diseases; Z82.49 Family history of ischemic heart disease and other diseases of the circulatory system; Z83.2 Family history of diseases of the blood and blood-forming organs and certain disorders involving the immune mechanism; Z88.1 Allergy status to other antibiotic agents; Z91.040 Latex allergy status; Z88.5 Allergy status to narcotic agent; Z88.0 Allergy status to penicillin; E78.00 Pure hypercholesterolemia, unspecified; Z79.4 Long term (current) use of insulin; Z79.02 Long term (current) use of antithrombotics/antiplatelets; B37.9 Candidiasis, unspecified; L30.4 Erythema intertrigo; Z66 Do not resuscitate; F41.9 Anxiety disorder, unspecified; N30.90 Cystitis, unspecified without hematuria; Z79.82 Long term (current) use of aspirin; Z79.899 Other long term (current) drug therapy; Z90.49 Acquired absence of other specified parts of digestive tract; Z90.710 Acquired absence of both cervix and uterus; Z91.018 Allergy to other foods; Z92.21 Personal history of antineoplastic chemotherapy; Z92.3 Personal history of irradiation; Z99.2 Dependence on renal dialysis
CPT/HCPCS: 36558; 36600; 70450; 72192; 74176; 76937; 77001; 80048; 80053; 80143; 82103; 82140; 82248; 82390; 82550; 82728; 82784; 82805; 82962; 83010; 83516; 83540; 83550; 83605; 83615; 83970; 84484; 85025; 85027; 85379; 85384; 85610; 85730; 86015; 86038; 86376; 86381; 86706; 86709; 86803; 86850; 86900; 86901; 87070; 87071; 87075; 87077; 87186; 87205; 87340; 93005; 96374; 99285; C1751; G0257; J0132; J2185; J7030; P9047; Q5106